=== PATIENT | male | born 1945 | race Caucasian/White ===

== ENCOUNTER 2017-02-15 09:48 | Inpatient (IN) | payer OTHER ==
--- NOTE | 2017-02-12 10:41 | Diagnostic Imaging Report ---
PROCEDURE:CHEST 2 VIEWS TECHNIQUE:PA and lateral chest tunneling 3 radiographs INDICATION:Preoperative evaluation for stomach surgery. COMPARISON:None. FINDINGS: Lungs are clear and symmetrically inflated. No pleural effusions. Normal heart size and mediastinal contour. Intact skeleton. CONCLUSION: Normal chest for patient age. Dictated by: Izaiah Amador M.D. on 02/12/2017 at 10:49 Electronically approved by: Izaiah Amador M.D. on 02/12/2017 at 10:49
[2017-02-12 10:43] LABS: BASOPHILS # (AUTO) 0.1 (0.0-0.1); BASOPHILS % 0.9 % (0.0-1.0); EOSINOPHILS # (AUTO) 0.3 (0.0-0.4); EOSINOPHILS % 3.9 % (0.0-6.0); HEMATOCRIT 43.5 % (38.2-49.6); HEMOGLOBIN 14.3 g/dL (14.0-18.0); LYMPHOCYTES # (AUTO) 2.3 (1.0-3.2); LYMPHOCYTES % 28.1 % (18.0-39.1); MEAN CORPUSCULAR HEMOGLOBIN 32.4 pg (28-32); MEAN CORPUSCULAR HGB CONC 32.9 g/dL (31-35); MEAN CORPUSCULAR VOLUME 98.4 fL (81-99); MONOCYTES # (AUTO) 0.8 (0.2-0.8); MONOCYTES % 9.7 % (4.4-11.3); NEUTROPHILS # (AUTO) 4.6 (2.1-6.9); NEUTROPHILS % 57.2 % (38.7-80.0); PLATELET COUNT 191 x10e3/uL (140-360); RED BLOOD COUNT 4.42 x10e6/uL (4.3-5.7); RED CELL DISTRIBUTION WIDTH 14.1 % (11.7-14.4)
[2017-02-12 11:01] LABS: ANION GAP 13.9 mmol/L (8-16); BLOOD UREA NITROGEN 16 mg/dL (7-26); BUN/CREATININE RATIO 15 (6-25); CALCIUM 9.2 mg/dL (8.4-10.2); CARBON DIOXIDE 25 mmol/L (22-29); CHLORIDE 107 mmol/L (98-107); EST GLOMERULAR FILTRATION RATE > 60 ML/MIN (60-); GLUCOSE 89 mg/dL (74-118); POTASSIUM 4.9 mmol/L (3.5-5.1); SODIUM 141 mmol/L (136-145)
[~2017-02-15] VITALS: Ht 177.8 cm; Wt 77.1 kg
[~2017-02-15 09:48] MED LIST: AMLODIPINE BESYL5 MG PO; ASPIR 8181 MG PO; BACLOFEN10 MG PO; CARVEDILOL3.125 MG PO; LOSARTAN POTASS25 MG PO; MELOXICAM7.5 MG PO; OXYBUTYNIN CHLOR5 MG PO; PANTOPRAZOLE SO20 MG PO; TAMSULOSIN HCL0.4 MG PO; TRIAMTERENE-HCTZ1 EA PO; VITAMIN B-121000 MCG PO; VITAMIN D32000 UNI1 PO
[2017-02-15] MEDS ORDERED: CEFAZOLIN SOD 1 GM/NS 50ML 100 ML IV ONE (10:09)
[2017-02-15] MEDS ORDERED: AMITIZA24 MCG PO (10:17)
[2017-02-15] MEDS ORDERED: TYLENOL ARTHRITIS PO (10:17)
[2017-02-15] MEDS ORDERED: BUPIVACAINE HCL 0.5% INJ 30 ML VIAL INJ ONE (12:27)
[2017-02-15] MEDS ORDERED: TYLENOL ARTHRITIS PO PRN (13:45)
[2017-02-15] MEDS ORDERED: DIPHENHYDRAMINE HCL INJ 50 MG/ML VIAL IM PRN (13:45)
[2017-02-15] MEDS ORDERED: LUBIPROSTONE 24 MCG CAP PO SCH (13:45)
[2017-02-15] MEDS ORDERED: ACETAMINOPHEN 1000 MG/100 ML IV PRN (13:45)
[2017-02-15] MEDS ORDERED: NALOXONE HCL INJ 0.4 MG/ML AMP IV PRN (13:45)
[2017-02-15] MEDS ORDERED: ONDANSETRON HCL INJ 2 MG/ML VIAL IV PRN (13:45)
[2017-02-15] MEDS: HYDROMORPHONE 0.2MG/ML-SOD CHL 30ML PCA SYRINGE IV PRN (14:10)
[2017-02-15] MEDS ORDERED: HYDROMORPHONE 1MG/1ML INJ ONE (14:18)
[2017-02-15] MEDS ORDERED: HYDRALAZINE HCL 20 MG/ML VIAL ONE (14:27)
[2017-02-15] MEDS ORDERED: ACETAMINOPHEN 325 MG TAB PO PRN (14:30)
[2017-02-15] MEDS: OXYBUTYNIN CHLORIDE 5 MG TAB PO SCH ×2 (15:00→21:55)
[2017-02-15 16:25] VITALS: BP 179/110
--- NOTE | 2017-02-15 16:54 | Operative Report ---
DATE OF PROCEDURE: February 15, 2017 PREOPERATIVE DIAGNOSIS: Gastric mass. POSTOPERATIVE DIAGNOSIS: Gastric mass. PROCEDURE: Laparoscopic assisted wedge resection of gastric mass. COMMERCIAL INSULATOR: None. ANESTHESIA: General. INDICATIONS AND FINDINGS: Patient is a 71-year-old male who was found to have a mass in the stomach that had increased in size. At surgery patient was found to have a mass in the body of the stomach posteriorly, which was completely removed and frozen section revealed a benign tumor which had been completely excised. TECHNIQUE: After adequate general endotracheal anesthesia, patient in supine position, the abdomen was prepped and draped in sterile fashion with Kali solution. Skin of the umbilicus was infiltrated with 0.5% Marcaine. Incision was made in the umbilicus. Abdominal wall was elevated and a Veress needle was introduced. Pneumoperitoneum was then created. A 10 mm trocar and cannula was passed through this wound. Laparoscopic camera was introduced. Initial laparoscopy revealed the liver to be normal. The stomach that was seen appeared normal. Lower abdomen appeared normal. Two 5 mm trocars and cannulas were placed in the left side of the abdomen. Stomach was elevated. The vessels going along the greater curvature of the stomach to the body of the stomach were divided with the laparoscopic Enseal device to enter the lesser sac, and some of the vessels along the lesser curvature also were divided close to the stomach, preserving the vagal nerve innervation to the distal stomach. Once the mobilization had been completed, which mostly involved dividing vessels along the greater curvature, upper midline incision was made. Palpation of the stomach revealed a mass posteriorly in the body of the stomach. This portion of the stomach was elevated, grasped with a Myke clamp, and a stapler placed across the stomach, dividing it transversely and removing the segment of stomach with the mass. The mass was submitted for frozen section, which revealed a benign tumor which was completely removed. Palpation of the stomach revealed no other mass. Hemostasis of the staple line was seen to be adequate. The wound was irrigated with saline, inspected for hemostasis, which was seen to be adequate. The midline fascia was then closed with a running suture of number 1 PDS. Subcutaneous tissue was irrigated with saline. Skin to all wounds was closed with alex. A sterile dressing was applied. The patient tolerated the procedure well. Estimated blood loss was 50 mL. There were no complications. All counts were correct. Patient was taken to the recovery room in satisfactory condition. Job#: [id number] EV cc:KECIA MONGE MD
[2017-02-15 17:14] VITALS: BP 136/72
[2017-02-15] MEDS: DEXTROSE 5%/LACTATED RINGERS 1,000 ML IV SCH ×2 (17:37→21:44)
[2017-02-15] MEDS: CEFAZOLIN SOD 1 GM/NS 50ML 50 ML IV SCH (17:38)
[2017-02-15] MEDS ORDERED: DEXAMETHASONE SOD PHOS INJ 4 MG/ML VIAL ONE (18:10)
[2017-02-15] MEDS ORDERED: ACETAMINOPHEN 1000 MG/100 ML IV ONE (18:10)
[2017-02-15] MEDS ORDERED: SEVOFLURANE INHAL SOLN 250 ML PEN BTL ONE (18:10)
[2017-02-15] MEDS ORDERED: ROCURONIUM BROMIDE 10 MG/ML 5ML VIAL ONE (18:10)
[2017-02-15] MEDS ORDERED: ONDANSETRON HCL INJ 2 MG/ML VIAL ONE (18:10)
[2017-02-15] MEDS ORDERED: PROPOFOL IV EMULSION 10 MG/ML 20 ML VIAL ONE (18:10)
[2017-02-15] MEDS ORDERED: LIDOCAINE HCL 2% LOCAL INJ 5 ML SDV VIAL INJ ONE (18:10)
[2017-02-15] MEDS ORDERED: FENTANYL CITRATE/PF 100MCG/2 ML INJ ONE (18:15)
[2017-02-15] MEDS ORDERED: MIDAZOLAM HCL 2 MG/2 ML VIAL ONE (18:15)
[2017-02-15 20:00] VITALS: BP 143/80
[2017-02-15] MEDS: TAMSULOSIN HCL 0.4 MG CAP PO SCH (21:55)
[2017-02-16] VITALS: BP 128/73
[2017-02-16] MEDS: CEFAZOLIN SOD 1 GM/NS 50ML 50 ML IV SCH (00:06)
[2017-02-16] MEDS: DEXTROSE 5%/LACTATED RINGERS 1,000 ML IV SCH ×3 (02:26→23:03)
[2017-02-16] MEDS: HYDROMORPHONE 0.2MG/ML-SOD CHL 30ML PCA SYRINGE IV PRN (03:09)
[2017-02-16 04:00] VITALS: BP 132/75
[2017-02-16 06:21] LABS: BASOPHILS % 0.2 % (0.0-1.0); HEMATOCRIT 41.6 % (38.2-49.6); HEMOGLOBIN 14.1 g/dL (14.0-18.0); LYMPHOCYTES # (AUTO) 1.2 (1.0-3.2); LYMPHOCYTES % 10.3 % (18.0-39.1); MEAN CORPUSCULAR HEMOGLOBIN 32.7 pg (28-32); MEAN CORPUSCULAR HGB CONC 33.9 g/dL (31-35); MEAN CORPUSCULAR VOLUME 96.5 fL (81-99); MONOCYTES % 8.8 % (4.4-11.3); NEUTROPHILS # (AUTO) 9.5 (2.1-6.9); NEUTROPHILS % 80.3 % (38.7-80.0); PLATELET COUNT 211 x10e3/uL (140-360); RED BLOOD COUNT 4.31 x10e6/uL (4.3-5.7); RED CELL DISTRIBUTION WIDTH 13.8 % (11.7-14.4)
[2017-02-16 06:41] LABS: ANION GAP 16.3 mmol/L (8-16); BLOOD UREA NITROGEN 15 mg/dL (7-26); BUN/CREATININE RATIO 14 (6-25); CALCIUM 8.7 mg/dL (8.4-10.2); CARBON DIOXIDE 23 mmol/L (22-29); CHLORIDE 107 mmol/L (98-107); CREATININE, SERUM 1.07 mg/dL (0.72-1.25); EST GLOMERULAR FILTRATION RATE > 60 ML/MIN (60-); GLUCOSE 148 mg/dL (74-118); POTASSIUM 4.3 mmol/L (3.5-5.1); SODIUM 142 mmol/L (136-145)
[2017-02-16 07:55] VITALS: BP 174/79
[2017-02-16] MEDS: CYANOCOBALAMIN 1,000 MCG TAB PO SCH (08:39)
[2017-02-16] MEDS: CHOLECALCIFEROL 1,000 UNIT TAB PO SCH (08:39)
[2017-02-16] MEDS: OXYBUTYNIN CHLORIDE 5 MG TAB PO SCH ×3 (08:39→20:46)
[2017-02-16] MEDS: PANTOPRAZOLE SOD 40 MG TABEC PO SCH (08:39)
[2017-02-16] MEDS ORDERED: NON-FORMULARY MEDICATION (Cholecalciferol (Vitamin D3) (Vitamin D3) 1 TAB) PO SCH (09:00)
[2017-02-16] MEDS ORDERED: NON-FORMULARY MEDICATION (Pantoprazole Sodium 40 MG) PO SCH (09:00)
[2017-02-16 12:17] VITALS: BP 175/90
[2017-02-16 16:45] VITALS: BP 179/87
[2017-02-16 20:00] VITALS: BP 171/87
[2017-02-16] MEDS: TAMSULOSIN HCL 0.4 MG CAP PO SCH (20:46)
[2017-02-17 00:24] VITALS: BP 137/72
[2017-02-17] MEDS: HYDROMORPHONE 0.2MG/ML-SOD CHL 30ML PCA SYRINGE IV PRN (02:10)
[2017-02-17 04:00] VITALS: BP 183/85
[2017-02-17 05:59] VITALS: BP 147/77
[2017-02-17] MEDS: PANTOPRAZOLE SOD 40 MG TABEC PO SCH (08:22)
[2017-02-17] MEDS: CYANOCOBALAMIN 1,000 MCG TAB PO SCH (08:23)
[2017-02-17] MEDS: OXYBUTYNIN CHLORIDE 5 MG TAB PO SCH (08:23)
[2017-02-17] MEDS: CHOLECALCIFEROL 1,000 UNIT TAB PO SCH (08:23)
[2017-02-17 12:07] VITALS: BP 148/71
[2017-02-17] MEDS ORDERED: NORCO 5-325 TA1 EACH PO (13:31)
[2017-04-10] MEDS ORDERED: FERROUS SULFAT325 MG PO (09:20)
[2017-04-10] MEDS ORDERED: VITAMIN C500 M1 PO (09:20)
== END 2017-02-17 14:09 | disposition home or self-care (01) | DRG 376 ==
LOC: OR 09:48 → MED/SURG 15:12 → RAD HOLD 02-16 10:57 → MED/SURG 02-16 10:57
PROVIDERS: ADMIT Surgery; ATTEND Surgery
PROC: 0DB64ZZ Excision of Stomach, Percutaneous Endoscopic Approach (ICD-10-PCS; principal; 2017-02-15 12:00)
DX: C16.2 Malignant neoplasm of body of stomach (principal)
CPT/HCPCS: 36415; 71020; 80048; 85025; 86850; 86900; 88307; 88331; 93005; J0360; J1100; J1170; J2001; J2250; J2405; J7120

== ENCOUNTER 2017-04-11 05:10 | Inpatient (IN) | payer OTHER ==
[2017-04-09 14:28] LABS: BASOPHILS # (AUTO) 0.1 (0.0-0.1); BASOPHILS % 0.8 % (0.0-1.0); EOSINOPHILS # (AUTO) 0.2 (0.0-0.4); EOSINOPHILS % 2.5 % (0.0-6.0); LYMPHOCYTES # (AUTO) 2.4 (1.0-3.2); LYMPHOCYTES % 30.5 % (18.0-39.1); MEAN CORPUSCULAR HEMOGLOBIN 31.7 pg (28-32); MONOCYTES # (AUTO) 0.8 (0.2-0.8); MONOCYTES % 10.3 % (4.4-11.3); NEUTROPHILS # (AUTO) 4.3 (2.1-6.9); NEUTROPHILS % 55.6 % (38.7-80.0); PLATELET COUNT 162 x10e3/uL (140-360); RED BLOOD COUNT 5.05 x10e6/uL (4.3-5.7); RED CELL DISTRIBUTION WIDTH 13.2 % (11.7-14.4)
[2017-04-09 15:01] LABS: ALANINE AMINOTRANSFERASE 10 IU/L (0-55); ALBUMIN 3.9 g/dL (3.5-5.0); ALKALINE PHOSPHATASE 104 IU/L (40-150); ANION GAP 15.5 mmol/L (8-16); BLOOD UREA NITROGEN 18 mg/dL (7-26); BUN/CREATININE RATIO 18 (6-25); CALCIUM 9.7 mg/dL (8.4-10.2); CARBON DIOXIDE 25 mmol/L (22-29); CHLORIDE 106 mmol/L (98-107); EST GLOMERULAR FILTRATION RATE > 60 ML/MIN (60-); GLUCOSE 97 mg/dL (74-118); POTASSIUM 4.5 mmol/L (3.5-5.1); SODIUM 142 mmol/L (136-145)
[~2017-04-11] VITALS: Ht 177.8 cm; Wt 80.3 kg
[~2017-04-11 05:10] MED LIST changes: +AMITIZA24 MCG PO; +FERROUS SULFAT325 MG PO; +NORCO 5-325 TA1 EACH PO; +TYLENOL ARTHRITIS PO; +VITAMIN C500 M1 PO
[2017-04-11] MEDS ORDERED: CEFAZOLIN SOD 2 GM/D5W 50ML 50 ML IV ONE (05:27)
[2017-04-11] MEDS: DEXTROSE 5%/LACTATED RINGERS 1,000 ML IV SCH ×2 (08:16→16:31)
[2017-04-11] MEDS: SODIUM CHLORIDE 0.9% 250ML IRRIG IR SCH ×4 (08:30→20:39)
[2017-04-11] MEDS ORDERED: DIPHENHYDRAMINE HCL INJ 50 MG/ML VIAL IM PRN (08:30)
[2017-04-11] MEDS ORDERED: ACETAMINOPHEN 1000 MG/100 ML IV PRN (08:30)
[2017-04-11] MEDS ORDERED: ONDANSETRON HCL INJ 2 MG/ML VIAL IV PRN (08:30)
[2017-04-11] MEDS: MORPHINE SULFATE 1 MG/ML 30ML PCA IV PRN (08:30)
[2017-04-11] MEDS ORDERED: NALOXONE HCL INJ 0.4 MG/ML AMP IV PRN (08:30)
[2017-04-11] MEDS ORDERED: HYDROMORPHONE 2MG/ML INJ ONE (08:48)
--- NOTE | 2017-04-11 09:14 | Operative Report ---
DATE OF PROCEDURE: April 11, 2017 PREOPERATIVE DIAGNOSIS: Carcinoma of the stomach. POSTOPERATIVE DIAGNOSIS: Carcinoma of the stomach. PROCEDURE PERFORMED: Subtotal gastrectomy and omentectomy with Brayan-en-Y gastrojejunostomy. HOT AIR FURNACE INSTALLER REPAIRER: None. ANESTHESIA: General. INDICATIONS AND FINDINGS: Patient a 71-year-old male previously had resection of a polyp from the stomach. He was found to have invasive adenocarcinoma within it with a margin that was not definitely free of tumor. At surgery, there was a previous staple line that was seen to be intact. There was no mass in the liver. There were no obvious enlarged lymph nodes. There was no fluid seen. TECHNIQUE: After adequate general endotracheal anesthesia with the patient in the supine position, the abdomen was prepped and draped in a sterile fashion with [place] solution. Through an upper midline incision, the peritoneal cavity was entered. There were some adhesions of the abdominal wall involving the omentum, which were lysed. Initially, the peritoneal cavity was irrigated with saline, and then fluid collected for cytology for peritoneal washings. This was submitted to pathology. Remaining adhesions were lysed. The omentum was dissected away from the transverse colon. There were some adhesions within the lesser sac behind the stomach, and these were lysed. The area of the previous wedge resection of the stomach was identified. The stomach was mobilized by dividing the peritoneal attachments. The colon was dissected away from the stomach. Care was taken not to injure the transverse colon. Vessels going along the greater curvature of the stomach to about 5 cm proximal to the previous resection were divided with LigaSure device. The distal stomach was also mobilized by dividing attachments to the distal stomach and vessels going to the distal stomach all the way to beyond the pylorus. The proximal duodenum was dissected free and this was divided just beyond the pylorus with a CRISTIANO stapler. Vessels along the lesser curvature were divided with the LigaSure device until approximately 60% of the remaining stomach was removed. The proximal stomach was then stapled with a TA-90 stapling device and the stomach was divided. This portion of the stomach was removed. Portion of the omentum was dissected also off the transverse colon and divided with the LigaSure devices, and this also was removed. There were no obvious enlarged lymph nodes. No tumor was seen. Patient was left with about 30% of this stomach. This was reconstructed with a Brayan-en-Y gastrojejunostomy. Approximately, 15 cm distal to the ligament of Treitz, the stomach divided with a CRISTIANO stapler. Mesentery divided with the LigaSure device. About 30 cm distal to the ligament of Treitz, the small bowel was divided with CRISTIANO stapler. Mesentery divided part of the way with the LigaSure device. Care was taken that blood supply to both portions of the small bowel was preserved. The distal portion of the small bowel where it was divided was brought up to the stomach, and a gastrojejunostomy created with the CRISTIANO stapler and TL-60 stapler. Nasogastric tube was passed through the anastomosis into the Brayan-en-Y limb. Approximately, 45 cm distal to the gastrojejunostomy, a jejunojejunostomy was created with a CRISTIANO stapler and TL-60 stapler. The peritoneal cavity was irrigated with saline. One area was bleeding and was controlled with the LigaSure device. It was irrigated further with saline. All fluid aspirated and inspected for hemostasis, which was seen to be adequate. The gastrojejunostomy was created in an anti-colic fashion. The wound was then closed with #1 PDS to the fascia. Subcutaneous tissue was irrigated with saline. Skin was closed with alex. Sterile dressing was applied. The patient tolerated the procedure well. Estimated blood loss was 200 mL. There were no complications. All counts were correct. Patient was taken to the recovery room in satisfactory condition. Job#: [id number] XOCHITL
[2017-04-11] MEDS ORDERED: MIDAZOLAM HCL 2 MG/2 ML VIAL ONE (11:46)
[2017-04-11] MEDS ORDERED: FENTANYL CITRATE/PF 100MCG/2 ML INJ ONE (11:46)
[2017-04-11 12:30] VITALS: BP 120/83
[2017-04-11 13:00] VITALS: BP 120/83
[2017-04-11] MEDS ORDERED: CEFAZOLIN SOD 1 GM in WATER STERILE 10ML VIAL 10 ML IV SCH (14:00)
[2017-04-11] MEDS ORDERED: CEFAZOLIN SOD 1 GM/NS 50ML 250 ML IV SCH (14:00)
[2017-04-11] MEDS ORDERED: CEFAZOLIN SOD 1 GM/NS 50ML 50 ML IV SCH (14:00)
[2017-04-11] MEDS: PANTOPRAZOLE 40 MG 10ML VIAL IV SCH (14:46)
[2017-04-11] MEDS: CEFAZOLIN SOD 1 GM VIAL IV SCH ×2 (15:30→22:08)
[2017-04-11] MEDS ORDERED: NEOSTIGMINE 5 MG/5ML SYR ONE (19:36)
[2017-04-11] MEDS ORDERED: ACETAMINOPHEN 1000 MG/100 ML IV ONE (19:36)
[2017-04-11] MEDS ORDERED: ONDANSETRON HCL INJ 2 MG/ML VIAL ONE (19:36)
[2017-04-11] MEDS ORDERED: GLYCOPYRROLATE INJ 1MG/ 5 ML SYR ONE (19:36)
[2017-04-11] MEDS ORDERED: SEVOFLURANE INHAL SOLN 250 ML PEN BTL ONE (19:36)
[2017-04-11] MEDS ORDERED: PROPOFOL IV EMULSION 10 MG/ML 20 ML VIAL ONE (19:36)
[2017-04-11] MEDS ORDERED: ROCURONIUM BROMIDE 10 MG/ML 5ML VIAL ONE (19:36)
[2017-04-11] MEDS ORDERED: DEXAMETHASONE SOD PHOS INJ 4 MG/ML VIAL ONE (19:36)
[2017-04-11] MEDS ORDERED: LIDOCAINE HCL 2% LOCAL INJ 5 ML SDV VIAL INJ ONE (19:36)
[2017-04-11 20:00] VITALS: BP 141/79
[2017-04-11 20:04] VITALS: BP 135/95
[2017-04-12] MEDS: DEXTROSE 5%/LACTATED RINGERS 1,000 ML IV SCH ×3 (00:21→16:13)
[2017-04-12] MEDS: SODIUM CHLORIDE 0.9% 250ML IRRIG IR SCH ×4 (00:45→12:30)
[2017-04-12] MEDS: MORPHINE SULFATE 1 MG/ML 30ML PCA IV PRN (03:34)
[2017-04-12 04:00] VITALS: BP 143/78
[2017-04-12] MEDS: CEFAZOLIN SOD 1 GM VIAL IV SCH ×3 (05:51→22:00)
[2017-04-12 06:53] LABS: BASOPHILS % 0.2 % (0.0-1.0); HEMATOCRIT 36.3 % (38.2-49.6); HEMOGLOBIN 12.3 g/dL (14.0-18.0); LYMPHOCYTES # (AUTO) 1.2 (1.0-3.2); LYMPHOCYTES % 9.3 % (18.0-39.1); MEAN CORPUSCULAR HEMOGLOBIN 31.9 pg (28-32); MEAN CORPUSCULAR HGB CONC 33.9 g/dL (31-35); MONOCYTES # (AUTO) 1.3 (0.2-0.8); MONOCYTES % 9.9 % (4.4-11.3); NEUTROPHILS # (AUTO) 10.6 (2.1-6.9); NEUTROPHILS % 80.1 % (38.7-80.0); PLATELET COUNT 177 x10e3/uL (140-360); RED BLOOD COUNT 3.86 x10e6/uL (4.3-5.7); RED CELL DISTRIBUTION WIDTH 13.3 % (11.7-14.4)
[2017-04-12 07:23] LABS: ALANINE AMINOTRANSFERASE 10 IU/L (0-55); ALBUMIN 2.7 g/dL (3.5-5.0); ALBUMIN/GLOBULIN RATIO 0.8 (0.8-2.0); ALKALINE PHOSPHATASE 66 IU/L (40-150); ANION GAP 12.1 mmol/L (8-16); BLOOD UREA NITROGEN 14 mg/dL (7-26); BUN/CREATININE RATIO 15 (6-25); CALCIUM 8.3 mg/dL (8.4-10.2); CARBON DIOXIDE 26 mmol/L (22-29); CHLORIDE 105 mmol/L (98-107); CREATININE, SERUM 0.92 mg/dL (0.72-1.25); EST GLOMERULAR FILTRATION RATE > 60 ML/MIN (60-); GLUCOSE 155 mg/dL (74-118); POTASSIUM 4.1 mmol/L (3.5-5.1); SODIUM 139 mmol/L (136-145)
[2017-04-12] MEDS: PANTOPRAZOLE 40 MG 10ML VIAL IV SCH (09:13)
[2017-04-12] MEDS ORDERED: ACETAMINOPHEN 1000 MG/100 ML IV PRN (09:30)
--- NOTE | 2017-04-12 15:16 | Consultation ---
DATE OF CONSULTATION: April 12, 2017 PCP: Dr. Richie Storey. ATTENDING PHYSICIAN: Dr. Richie Lara. CHIEF COMPLAINT: Status post subtotal gastrectomy or omentectomy with Brayan-en-Y gastrojejunostomy. HISTORY: The patient is a 71-year-old male with previous resection of polyps from the stomach. He was found have invasive adenocarcinoma with a margin that was not free of tumor. The patient is now status post a total gastrectomy and omentectomy with Brayan-en-Y gastrojejunostomy. The patient is otherwise stable. PAST MEDICAL HISTORY: Carcinoma of the stomach, hypertension, osteoarthritis, overactive urinary bladder. PAST SURGICAL HISTORY: Appendectomy. Status post now Brayan-en-Y procedure with a jejunostomy. SOCIAL HISTORY: Patient quit smoking years ago. He does not use alcohol. No recreational drugs. ALLERGIES: NO KNOWN ALLERGIES. HOME MEDICATIONS: List reviewed. REVIEW OF SYSTEMS: As mentioned above. PHYSICAL EXAMINATION VITAL SIGNS: Temperature 98, blood pressure 143/78, pulse rate 86, respirations 18. GENERAL: The patient is in no acute distress. He is awake. HEENT: Normocephalic, atraumatic, anicteric. NECK: Supple grossly. PULMONARY: Clear. CARDIOVASCULAR: Regular rate and rhythm. ABDOMEN: Status post surgery. EXTREMITIES: No cyanosis or edema. NEUROLOGIC: No focal deficit. LABORATORY: Sodium is 139, potassium 4.1, chloride 105, bicarb 26, BUN 14, creatinine 0.9. Glucose 155. WBC 13.2, hemoglobin 12.3, hematocrit 36.3, platelets 177. IMPRESSION 1. Status post subtotal gastrectomy and omentectomy with Brayan-en-Y gastrojejunostomy. 2. Hypertension. PLAN: Continue with postoperative care. Repeat lab work. PPI. Will monitor the patient closely. Pain control. Job#: [id number]
[2017-04-12 20:10] VITALS: BP 130/77
[2017-04-12] MEDS ORDERED: CHLORASEPTIC SPRAY 177 ML BTL MM PRN (20:15)
[2017-04-13 00:35] VITALS: BP 151/74
[2017-04-13] MEDS: MORPHINE SULFATE 1 MG/ML 30ML PCA IV PRN (02:43)
[2017-04-13 04:36] VITALS: BP 165/86
[2017-04-13] MEDS: CEFAZOLIN SOD 1 GM VIAL IV SCH ×3 (05:45→21:49)
[2017-04-13] MEDS: DEXTROSE 5%/LACTATED RINGERS 1,000 ML IV SCH ×2 (05:50→23:34)
[2017-04-13 06:23] LABS: BASOPHILS # (AUTO) 0.1 (0.0-0.1); BASOPHILS % 0.4 % (0.0-1.0); EOSINOPHILS # (AUTO) 0.1 (0.0-0.4); EOSINOPHILS % 0.7 % (0.0-6.0); HEMATOCRIT 38.7 % (38.2-49.6); HEMOGLOBIN 12.8 g/dL (14.0-18.0); LYMPHOCYTES # (AUTO) 1.6 (1.0-3.2); LYMPHOCYTES % 9.9 % (18.0-39.1); MEAN CORPUSCULAR HEMOGLOBIN 31.5 pg (28-32); MEAN CORPUSCULAR HGB CONC 33.1 g/dL (31-35); MEAN CORPUSCULAR VOLUME 95.3 fL (81-99); MONOCYTES # (AUTO) 1.6 (0.2-0.8); MONOCYTES % 9.9 % (4.4-11.3); NEUTROPHILS # (AUTO) 12.7 (2.1-6.9); NEUTROPHILS % 78.6 % (38.7-80.0); PLATELET COUNT 205 x10e3/uL (140-360); RED BLOOD COUNT 4.06 x10e6/uL (4.3-5.7); RED CELL DISTRIBUTION WIDTH 13.2 % (11.7-14.4)
[2017-04-13 06:52] LABS: ANION GAP 13.2 mmol/L (8-16); BLOOD UREA NITROGEN 11 mg/dL (7-26); BUN/CREATININE RATIO 11 (6-25); CARBON DIOXIDE 29 mmol/L (22-29); CHLORIDE 102 mmol/L (98-107); CREATININE, SERUM 0.97 mg/dL (0.72-1.25); EST GLOMERULAR FILTRATION RATE > 60 ML/MIN (60-); GLUCOSE 140 mg/dL (74-118); POTASSIUM 4.2 mmol/L (3.5-5.1); SODIUM 140 mmol/L (136-145)
[2017-04-13 07:39] VITALS: BP 128/82
--- NOTE | 2017-04-13 08:27 | Diagnostic Imaging Report ---
PROCEDURE:ABDOMEN COMP INCL UPR OR DECUB TECHNIQUE:Flat and erect abdomen. INDICATION:Abdominal distention COMPARISON:None. FINDINGS:There are midline surgical alex. Mildly dilated loops of bowel are present. There are scattered air fluid levels identified. Gas and fecal material within the colon is present. There is also gas in the rectum. Findings are most compatible with an ileus. No free peritoneal air. CONCLUSION:Findings suggestive of a postoperative ileus. Jimmie Taylor D.O. Dictated by: Jimmie Taylor D.O. on 04/13/2017 at 8:35 Electronically approved by: Jimmie Taylor D.O. on 04/13/2017 at 8:35
[2017-04-13 08:28] LABS: LYMPHOCYTES % (MANUAL) 19 % (19-48); METAMYELOCYTES % (MANUAL) 2 % (0-0); MONOCYTES % (MANUAL) 3 % (3.4-9.0); NEUTROPHILS % (MANUAL) 75 % (40-74); RBC MORPHOLOGY COMMENT NORMAL
[2017-04-13 08:29] LABS: PLATELET ESTIMATE ADEQUATE; PLATELET MORPHOLOGY COMMENT NORMAL
[2017-04-13] MEDS: PANTOPRAZOLE 40 MG 10ML VIAL IV SCH (08:38)
[2017-04-13 11:39] VITALS: BP 129/82
[2017-04-13] MEDS ORDERED: MORPHINE SULFATE 5 MG/ML VIAL IV PRN (12:30)
[2017-04-13] MEDS ORDERED: MORPHINE SULFATE 4 MG/ML SYR IV PRN (12:30)
[2017-04-13 15:51] VITALS: BP 136/78
[2017-04-13 19:30] VITALS: BP 126/86
[2017-04-14 00:18] VITALS: BP 133/81
[2017-04-14 04:00] VITALS: BP 128/75
[2017-04-14] MEDS: CEFAZOLIN SOD 1 GM VIAL IV SCH ×3 (05:30→22:37)
[2017-04-14 06:06] LABS: BASOPHILS % 0.3 % (0.0-1.0); EOSINOPHILS # (AUTO) 0.2 (0.0-0.4); EOSINOPHILS % 1.9 % (0.0-6.0); HEMATOCRIT 33.4 % (38.2-49.6); HEMOGLOBIN 11.2 g/dL (14.0-18.0); LYMPHOCYTES # (AUTO) 1.6 (1.0-3.2); LYMPHOCYTES % 12.7 % (18.0-39.1); MEAN CORPUSCULAR HEMOGLOBIN 31.8 pg (28-32); MEAN CORPUSCULAR HGB CONC 33.5 g/dL (31-35); MEAN CORPUSCULAR VOLUME 94.9 fL (81-99); MONOCYTES # (AUTO) 1.3 (0.2-0.8); MONOCYTES % 10.3 % (4.4-11.3); NEUTROPHILS # (AUTO) 9.3 (2.1-6.9); NEUTROPHILS % 74.2 % (38.7-80.0); PLATELET COUNT 162 x10e3/uL (140-360); RED BLOOD COUNT 3.52 x10e6/uL (4.3-5.7); RED CELL DISTRIBUTION WIDTH 13.1 % (11.7-14.4)
[2017-04-14 06:28] LABS: ANION GAP 11.7 mmol/L (8-16); BLOOD UREA NITROGEN 13 mg/dL (7-26); BUN/CREATININE RATIO 15 (6-25); CALCIUM 8.3 mg/dL (8.4-10.2); CARBON DIOXIDE 26 mmol/L (22-29); CHLORIDE 106 mmol/L (98-107); CREATININE, SERUM 0.84 mg/dL (0.72-1.25); EST GLOMERULAR FILTRATION RATE > 60 ML/MIN (60-); GLUCOSE 130 mg/dL (74-118); POTASSIUM 3.7 mmol/L (3.5-5.1); SODIUM 140 mmol/L (136-145)
[2017-04-14] MEDS: DEXTROSE 5%/LACTATED RINGERS 1,000 ML IV SCH ×2 (06:59→12:59)
[2017-04-14 08:01] VITALS: BP 124/71
[2017-04-14] MEDS: PANTOPRAZOLE 40 MG 10ML VIAL IV SCH (08:04)
[2017-04-14 12:01] VITALS: BP 154/84
[2017-04-14 16:20] VITALS: BP 168/89
[2017-04-14 20:18] VITALS: BP 163/88
[2017-04-15 00:15] VITALS: BP 169/98
[2017-04-15] MEDS: DEXTROSE 5%/LACTATED RINGERS 1,000 ML IV SCH ×2 (02:14→15:08)
[2017-04-15 04:21] VITALS: BP 144/84
[2017-04-15] MEDS: CEFAZOLIN SOD 1 GM VIAL IV SCH ×3 (05:30→22:20)
[2017-04-15 07:45] VITALS: BP 141/87
[2017-04-15] MEDS: PANTOPRAZOLE 40 MG 10ML VIAL IV SCH (09:45)
[2017-04-15 11:39] VITALS: BP 148/77
[2017-04-15 19:30] VITALS: BP 148/93
[2017-04-15] MEDS ORDERED: TAMSULOSIN HCL 0.4 MG CAP PO SCH (21:00)
[2017-04-16] VITALS: BP 149/87
[2017-04-16] MEDS: CEFAZOLIN SOD 1 GM VIAL IV SCH (06:11)
[2017-04-16 06:39] LABS: BASOPHILS % 0.5 % (0.0-1.0); EOSINOPHILS # (AUTO) 0.5 (0.0-0.4); EOSINOPHILS % 5.7 % (0.0-6.0); HEMATOCRIT 31.8 % (38.2-49.6); HEMOGLOBIN 10.8 g/dL (14.0-18.0); LYMPHOCYTES # (AUTO) 1.5 (1.0-3.2); LYMPHOCYTES % 17.8 % (18.0-39.1); MEAN CORPUSCULAR HEMOGLOBIN 31.4 pg (28-32); MEAN CORPUSCULAR VOLUME 92.4 fL (81-99); MONOCYTES # (AUTO) 0.9 (0.2-0.8); MONOCYTES % 11.3 % (4.4-11.3); NEUTROPHILS # (AUTO) 5.3 (2.1-6.9); NEUTROPHILS % 64.2 % (38.7-80.0); PLATELET COUNT 207 x10e3/uL (140-360); RED BLOOD COUNT 3.44 x10e6/uL (4.3-5.7); RED CELL DISTRIBUTION WIDTH 12.9 % (11.7-14.4)
[2017-04-16 07:00] VITALS: BP 152/91
[2017-04-16 07:06] LABS: ANION GAP 13.5 mmol/L (8-16); BLOOD UREA NITROGEN 11 mg/dL (7-26); BUN/CREATININE RATIO 14 (6-25); CALCIUM 8.4 mg/dL (8.4-10.2); CARBON DIOXIDE 24 mmol/L (22-29); CHLORIDE 108 mmol/L (98-107); EST GLOMERULAR FILTRATION RATE > 60 ML/MIN (60-); GLUCOSE 95 mg/dL (74-118); POTASSIUM 3.5 mmol/L (3.5-5.1); SODIUM 142 mmol/L (136-145)
[2017-04-16] MEDS ORDERED: PANTOPRAZOLE SOD 40 MG TABEC PO SCH (07:30)
--- NOTE | 2017-04-16 07:54 | Discharge Summary ---
ADMISSION DIAGNOSIS: Carcinoma of the stomach. DISCHARGE DIAGNOSIS: Carcinoma of the stomach. PRINCIPAL PROCEDURE: Subtotal gastrectomy with Brayan-en-Y gastrojejunostomy. HISTORY OF PRESENT ILLNESS: Patient is a 71-year-old male who previously had resection of the polyp from the stomach, was found to have invasive adenocarcinoma within it with a positive margin. HOSPITAL COURSE: Patient was admitted to the hospital and underwent surgery the same day as admission. He had subtotal gastrectomy and omentectomy with Brayan-en-Y gastrojejunostomy. Postoperatively, patient was stable. He has some mild distention, was kept n.p.o. until bowel function improved. He started passing flatus, distention improved, and he was discharged regular diet. Wound remained clean. He was ambulating. He was discharged home on the fifth postop day. At the time of discharge, he was afebrile. Wound was clean, tolerating diet, having bowel movements. DISCHARGE MEDICATIONS: [place], and continue all his same home meds as he took prior to admission. Follow up with Dr. Lara in approximately 1 week after discharge. Sent home in satisfactory condition on regular diet. PALAK LARA MD Job#: [id number]
== END 2017-04-16 10:33 | disposition home or self-care (01) | DRG 328 ==
LOC: OR 05:10 → IMCU 12:17
PROVIDERS: ADMIT Surgery; ATTEND Surgery
PROC: 07BC0ZX Excision of Pelvis Lymphatic, Open Approach, Diagnostic (ICD-10-PCS; 2017-04-11)
PROC: 3E1M38X Irrigation of Peritoneal Cavity using Irrigating Substance, Percutaneous Approach, Diagnostic (ICD-10-PCS; 2017-04-11)
PROC: 0DB60ZZ Excision of Stomach, Open Approach (ICD-10-PCS; 2017-04-11)
PROC: 0DTU0ZZ Resection of Omentum, Open Approach (ICD-10-PCS; 2017-04-11)
PROC: 0D160ZA Bypass Stomach to Jejunum, Open Approach (ICD-10-PCS; principal; 2017-04-11 06:48)
DX: D00.2 Carcinoma in situ of stomach (principal); I10 Essential (primary) hypertension; M19.90 Unspecified osteoarthritis, unspecified site
CPT/HCPCS: 36415; 74020; 80048; 80053; 82948; 85025; 88112; 88305; 88307; 88309; 96360; 96361; 96376; 97139; J0690; J1100; J2001; J2250; J2270; J2405; J7120

== ENCOUNTER 2017-11-14 10:44 | Inpatient (IN) | payer MEDICARE, OTHER ==
[2017-11-14] VITALS (27 sets, daily range): BP systolic 82–139; BP diastolic 41–77
[~2017-11-14] VITALS: Ht 177.8 cm; Wt 81.8 kg
[2017-11-14] MEDS ORDERED: SODIUM CHLORIDE 0.9% 1000ML 1,000 ML IV STA ×2 (10:50→11:34)
[2017-11-14] MEDS ORDERED: ONDANSETRON HCL INJ 2 MG/ML VIAL IV STA (10:50)
[2017-11-14 11:24] LABS: BASOPHILS % 0.5 % (0.0-1.0); EOSINOPHILS # (AUTO) 0.1 (0.0-0.4); EOSINOPHILS % 2.7 % (0.0-6.0); HEMATOCRIT 50.4 % (38.2-49.6); HEMOGLOBIN 16.7 g/dL (14.0-18.0); LYMPHOCYTES # (AUTO) 0.8 (1.0-3.2); MEAN CORPUSCULAR HEMOGLOBIN 32.6 pg (28-32); MEAN CORPUSCULAR HGB CONC 33.1 g/dL (31-35); MEAN CORPUSCULAR VOLUME 98.2 fL (81-99); MONOCYTES # (AUTO) 0.1 (0.2-0.8); MONOCYTES % 3.3 % (4.4-11.3); NEUTROPHILS # (AUTO) 0.9 (2.1-6.9); PLATELET COUNT 222 x10e3/uL (140-360); RED BLOOD COUNT 5.13 x10e6/uL (4.3-5.7); RED CELL DISTRIBUTION WIDTH 17.2 % (11.7-14.4)
[2017-11-14 12:21] LABS: PARTIAL THROMBOPLASTIN TIME 22.9 seconds (23.8-35.5)
[2017-11-14 12:22] LABS: INR 1.36; PROTHROMBIN TIME 15.8 seconds (11.9-14.5)
[2017-11-14 12:31] LABS: ALBUMIN 2.9 g/dL (3.5-5.0); ALBUMIN/GLOBULIN RATIO 0.9 (0.8-2.0); ANION GAP 22.7 mmol/L (8-16); CALCIUM 8.6 mg/dL (8.4-10.2); CREATININE, SERUM 1.97 mg/dL (0.72-1.25); POTASSIUM 3.7 mmol/L (3.5-5.1)
[2017-11-14 12:37] LABS: CREATINE KINASE MB 0.8 ng/mL (0-5.0)
[2017-11-14 12:41] LABS: PHOSPHORUS 5.3 MG/DL (2.3-4.7)
[2017-11-14] MEDS ORDERED: DIATRIZOATE MEGL/DIATRIZOA SOD 30 ML BTL PO ONE (12:49)
[2017-11-14] MEDS ORDERED: VANCOMYCIN 1GM/NS 250 ML 250 ML IV SCH ×2 (13:00→15:00)
[2017-11-14 13:26] LABS: PLATELET ESTIMATE ADEQUATE; PLATELET MORPHOLOGY COMMENT NORMAL; RBC MORPHOLOGY COMMENT NORMAL
[2017-11-14 13:27] LABS: ANISOCYTOSIS SLIGHT
[2017-11-14] MEDS ORDERED: CEFEPIME HCL 2 GM VIAL IV SCH ×3 (14:00→21:00)
[2017-11-14] MEDS ORDERED: NOREPINEPHRINE INJ 4MG/4ML 8 MG in DEXTROSE 5% 250ML 250 ML IV STA (14:11)
[2017-11-14] MEDS ORDERED: SODIUM CHLORIDE 0.9% 1000ML 1,000 ML IV ONE (14:15)
[2017-11-14] MEDS ORDERED: NOREPINEPHRINE 8 MG/D5W 250 ML 250 ML ONE (14:22)
[2017-11-14] MEDS ORDERED: SODIUM CHLORIDE 0.9% 1000ML 1,000 ML IV SCH (14:50)
[2017-11-14 14:58] LABS: ABG HCO3 26 mmol/L (23-28); ABG PCO2 37 mmHg (41-51); ABG PH 7.46 (7.31-7.41); ABG PO2 80 mmHg (80-105)
[2017-11-14] MEDS ORDERED: FLUCONAZOLE 100 MG/NS 50 ML 50 ML IV ONE ×2 (15:00→21:30)
[2017-11-14] MEDS ORDERED: ONDANSETRON HCL INJ 2 MG/ML VIAL IV PRN ×2 (15:00→18:00)
[2017-11-14] MEDS ORDERED: ASPIRIN 81 MG CHEW TAB PO ONE (15:00)
[2017-11-14] MEDS ORDERED: MORPHINE SULFATE 2 MG/ML SYR IV PRN (16:00)
[2017-11-14] MEDS ORDERED: FILGRASTIM 300 MCG/ML VIAL SC ONE (16:35)
[2017-11-14] MEDS ORDERED: FAMOTIDINE 20 MG/2 ML VIAL IV SCH (17:00)
[2017-11-14] MEDS ORDERED: PROPOFOL IV EMULSION 10 MG/ML 50 ML VIAL ONE (17:08)
[2017-11-14] MEDS ORDERED: SUCCINYLCHOLINE 200 MG/10 ML SYR ONE (17:08)
[2017-11-14] MEDS ORDERED: LIDOCAINE HCL 2% LOCAL INJ 5 ML SDV VIAL INJ ONE (17:08)
[2017-11-14] MEDS ORDERED: SEVOFLURANE INHAL SOLN 250 ML PEN BTL ONE (17:08)
[2017-11-14] MEDS ORDERED: ROCURONIUM BROMIDE 10 MG/ML 5ML VIAL ONE (17:08)
--- NOTE | 2017-11-14 17:12 | Diagnostic Imaging Report ---
PROCEDURE: CT ABDOMEN AND PELVIS WITHOUT CONTRAST TECHNIQUE: The abdomen and pelvis were scanned utilizing a multidetector helical scanner from the diaphragm to the lesser trochanter without oral contrast. Minimal oral Gastrografin was attempted. No IV contrast was administered because of elevated creatine. Coronal and sagittal multiplanar reformations were obtained. DLP: 530.27 mGy-cm COMPARISON: CT abdomen pelvis 10/10/16.. INDICATIONS: ABDOMINAL PAIN, LEUKOPENIA FINDINGS: ABSENCE OF INTRAVENOUS CONTRAST DECREASES SENSITIVITY FOR DETECTION OF FOCAL LESIONS AND VASCULAR PATHOLOGY. LOWER THORAX: Small bilateral pleural effusions with atelectasis. Subtle scattered airspace opacities in the right middle, right lower, left lower lobes. HEPATOBILIARY: No focal hepatic lesions. No biliary ductal dilatation. SPLEEN: No splenomegaly. PANCREAS: No focal masses or ductal dilatation. ADRENALS: No adrenal nodules. KIDNEYS/URETERS: No hydronephrosis, stones, or solid mass lesions. PELVIC ORGANS/BLADDER: Unremarkable. PERITONEUM / RETROPERITONEUM: Extensive pneumoperitoneum and trace free fluid. LYMPH NODES: No lymphadenopathy. VESSELS: Moderate atherosclerotic calcifications. GI TRACT: Distal gastrectomy with anastomosis. Additional small bowel loop in the left upper abdomen. The stomach and proximal small bowel are diffusely distended with fecalization in the right lower quadrant abdomen (series 2 image 73). Colon is decompressed. Extensive pneumoperitoneum scattered trace free fluid in the abdomen. BONES AND SOFT TISSUES: Unremarkable. IMPRESSION: 1. Previous distal gastrectomy and anastomosis. 2. Stomach and greater than 50% small bowel are distended and may represent ileus versus bowel obstruction. 3. Extensive pneumoperitoneum and trace free fluid, likely perforation. 4. Small bilateral pleural effusions and likely aspiration / pneumonia in the lung bases. Results were discussed with Dr. Topete (ER attending) by Dr. Conroy on 11/14/2017 at 5:10 PM Dictated by: Nikunj Conroy M.D. on 11/14/2017 at 17:17 Electronically approved by: Nikunj Conroy M.D. on 11/14/2017 at 17:17
[2017-11-14 17:20] LABS: ANION GAP 17.8 mmol/L (8-16); CALCIUM 7.9 mg/dL (8.4-10.2); CREATININE, SERUM 1.54 mg/dL (0.72-1.25); POTASSIUM 3.8 mmol/L (3.5-5.1)
[2017-11-14] MEDS ORDERED: FENTANYL CITRATE/PF 100MCG/2 ML INJ ONE (17:26)
[2017-11-14] MEDS: NOREPINEPHRINE 8 MG/D5W 250 ML 250 ML IV SCH (17:45)
--- NOTE | 2017-11-14 17:50 | Diagnostic Imaging Report ---
PROCEDURE: A single AP view of the chest. COMPARISON: Chest x-ray 02/12/2017. CT abdomen and pelvis 11/14/2017. INDICATIONS: weakness, sob FINDINGS: Lines/tubes: Right-sided portacatheter with tip at the atriocaval junction. A left IJ central line with tip at high SVC. Lungs: The lungs are well-inflated. Bibasilar atelectasis and/or consolidation. Right midlung airspace opacities. Pleura: Small bilateral effusions. Heart and mediastinum: The heart and the mediastinum are unremarkable. Bones: No acute bony abnormality. Upper abdomen: Pneumoperitoneum. IMPRESSION: 1. Small bilateral pleural effusions and bibasilar atelectasis and/or pneumonia as previously seen on CT. 2. Right midlung airspace opacity, likely pneumonia. 3. Pneumoperitoneum as seen on same date CT. Dictated by: Nikunj Conroy M.D. on 11/14/2017 at 17:55 Electronically approved by: Nikunj Conroy M.D. on 11/14/2017 at 17:55
--- NOTE | 2017-11-14 18:38 | Consultation ---
DATE OF CONSULTATION: November 14, 2017 REFERRING PHYSICIAN: Dr. Jaskaran Blackman. HISTORY OF PRESENT ILLNESS: The patient is a 72-year-old male known to me. He has a history of carcinoma of the stomach. He underwent subtotal gastrectomy about 8 months ago. He has been treated with chemotherapy. He developed abdominal pain with nausea and vomiting about 3-4 days ago. He came to the emergency room where evaluation revealed perforated hollow viscus. PAST MEDICAL HISTORY: Significant for hypertension, osteoarthritis. Carcinoma of the stomach currently chemotherapy. Previous appendectomy. ALLERGIES: NO KNOWN DRUG ALLERGIES. MEDICATIONS: Listed in chart. FAMILY HISTORY: Noncontributory. SOCIAL HISTORY: Patient is a former smoker, quit many years ago and does not drink alcohol. REVIEW OF SYSTEMS: He has not had any fever. PHYSICAL EXAMINATION: VITALS: Mild tachycardia, heart rate 120. Blood pressure 117/76. Respirations 32. GENERAL: The patient is awake and alert. HEENT: Reveals no scleral icterus. NECK: Has no masses. LUNGS: Have rhonchi bilaterally. CARDIAC: Tachycardia with a regular rate and rhythm. ABDOMEN: Distended with signs of peritonitis diffusely. EXTREMITIES: No edema. NEUROLOGIC: Grossly intact. LABORATORY DATA: White blood count of 1.84. [id number], hematocrit 50. Coagulation studies essentially normal. The chemistries reveal elevated BUN 56, creatinine 1.5, lactate level is 119, which is elevated. ASSESSMENT: A 72-year-old male with perforated hollow viscus, signs of sepsis with granulocytopenia secondary to recent chemotherapy. He will need surgery to repair the perforated hollow viscus. Review of the CT scan suggests it is most likely related to his stomach. Proposed surgery was explained to his family and to the patient including risks, benefits and alternatives. They understand the procedure. They have had the opportunity to ask questions. Thank you for asking me to see Mr. Morgan. Job#: [id number]
--- NOTE | 2017-11-14 18:52 | Consultation ---
DATE OF CONSULTATION: November 14, 2017 PULMONARY CONSULTATION PATIENT OF: Dr. Blackman and Dr. Lara. HISTORY OF PRESENT ILLNESS: A charming, but unfortunate 72-year-old gentleman with history of carcinoma of the stomach, when initial resection margins were close, he underwent partial gastrectomy with Brayan-en-Y; history of smoking in the past; alcohol in the past; received chemotherapy [place] this week. He is a poor historian and somewhat short of breath. According to family, he had been vomiting. He had abdominal pain for over 3 days and no bowel movement for 4 days. He vomited on the . Chemotherapy was started on the . He has adenocarcinoma of the stomach. PHYSICAL EXAMINATION GENERAL: Frail white male, awake and alert. Able to narrate history. On supplemental oxygen. VITAL SIGNS: Blood pressure 117/67, respirations 32, afebrile. HEENT: Head normocephalic, atraumatic. LUNGS: Rales at bases. HEART: Regular rhythm. ABDOMEN: Diffusely distended. EXTREMITIES: Nonedematous. IMPRESSION: 1. Perforated viscous, likely stomach. 2. Constipation. 3. Urinary retention. 4. Dehydration. PLAN: Marlow catheter was placed, 250 mL was removed. Nurse could not place NG tube. This will be placed in OR. Case discussed with anesthesia and surgery. Anticipate therapy of pneumonia. Continue IV antibiotics, decompression, surgical evaluation. Chest x-ray is pending. There is severe neutropenia, white count 1.8, platelets are normal. PT/INR is normal. Case also discussed with family who agrees with Dr. Lara's plan. Thank you for this kind referral. Job#: [id number]
[2017-11-14] MEDS: ALBUTEROL/IPRATROPIUM 3 ML NEB NEB SCH (19:00)
[2017-11-14] MEDS ORDERED: MORPHINE SULFATE INJ 4 MG/ML INJ IV PRN (19:30)
--- NOTE | 2017-11-14 21:18 | Operative Report ---
DATE OF PROCEDURE: November 14, 2017 PREOPERATIVE DIAGNOSES: 1. Perforated hollow viscus. 2. Peritonitis. POSTOPERATIVE DIAGNOSES: 1. Perforated hollow viscus secondary to small-bowel obstruction with small bowel perforation. 2. Also, abdominal wall mass. PROCEDURES: 1. Exploratory laparotomy. 2. Lysis of adhesions with release of small-bowel obstruction. 3. Closure of small bowel perforation. 4. Excision of abdominal wall mass. INSTRUCTOR KINDERGARTEN: None. ANESTHESIA: General endotracheal. INDICATIONS AND FINDINGS: The patient is a 72-year-old male with history of carcinoma of the stomach, who presented with complaints of nausea, vomiting, abdominal pain. Evaluation revealed large amount of free intraperitoneal air. At surgery, patient was found to have large amount of free intraperitoneal air and free fluid, which was murky GI content fluid. There was fibrinous exudate and adhesions on large portion of small bowel. There was found to be a small-bowel obstruction with the proximal bowel being dilated, distal bowel is collapsed with the point of obstruction being caused by adhesive band. There was a perforation in the bowel proximally at area of obstruction at the site of the previous jejunojejunostomy from his previous surgery. Bowel all appeared viable. There was no evidence of cancer. There was a mass in the liver, which was firm and was removed, but appeared to be an area of fat necrosis. TECHNIQUE: After adequate general endotracheal anesthesia with patient in supine position, the abdomen was prepped and draped in sterile fashion with Kali solution. Through upper midline incision, the peritoneal cavity was entered. There was free intraperitoneal air. There was large amount of fluid, which was somewhat murky GI fluid and there was found to be a perforation in the small bowel at the site of jejunojejunostomy. Portion of the fluid sample was taken for culture and sensitivity. The area of the perforation was initially closed with interrupted full-thickness sutures of 3-0 Vicryl. Small bowel was then examined further. There were fibrinous adhesions and exudate on the surface of the small bowel which were broken up. Bowel was followed distally. The distal bowel was noted to be collapsed and there was found to be an adhesive band tethering the small bowel causing the obstruction. Adhesive band was lysed freeing the small bowel completely. Small bowel was examined in its entirety, it all appeared viable, the proximal bowel was dilated, distal bowel was collapsed. The colon had some stool in it, it was otherwise collapsed. There were some adhesions around the stomach, which were not easily evaluated. There was no mass in the liver. There was a firm mass in the abdominal wall and this was excised, and on inspection appeared to be an area of fat necrosis. The area of the small bowel perforation was closed further using seromuscular sutures of 3-0 silk. Care was taken not to narrow the lumen of the small bowel. The peritoneal cavity was then irrigated with large volume of warm saline until the aspirate was clear. Small bowel was then returned to the peritoneal cavity. The wound was inspected for hemostasis, which was seen to be adequate. Fascia was then closed with running suture of #1 PDS, subcutaneous tissue was irrigated with saline, and skin and subcutaneous tissue was dressed open with saline moistened gauze, and sterile dressing applied. The patient remained stable throughout the procedure. Estimated blood loss was 50 mL. There were no complications. He was taken to the intensive care unit in critical condition. Job#: [id number] cc:DR. BERNIE HILTON
[2017-11-14] MEDS: METRONIDAZOLE 500MG/NS 100ML 100 ML IV SCH (21:23)
[2017-11-14] MEDS: CEFEPIME HCL 1 GM VIAL IV SCH (21:23)
[2017-11-14] MEDS: SODIUM CHLORIDE 0.9% 1000ML 1,000 ML IV SCH (21:23)
[2017-11-14] MEDS: FAMOTIDINE 20 MG/2 ML VIAL IV SCH (21:23)
[2017-11-14] MEDS: SODIUM CHLORIDE 0.9% 250ML IRRIG IR SCH (21:23)
[2017-11-14] MEDS ORDERED: METRONIDAZOLE 500MG/NS 100ML 100 ML IV SCH (22:00)
[2017-11-14] MEDS ORDERED: NORCO 5-325 TA1 EACH PO (22:39)
[2017-11-14] MEDS ORDERED: LISINOPRIL10 MG PO (22:39)
[2017-11-14] MEDS ORDERED: ZOFRAN ODT4 MG (22:39)
[2017-11-14] MEDS ORDERED: PROPOFOL IV EMULSION 10MG/ML 100 ML ONE (23:07)
--- NOTE | 2017-11-14 23:13 | Diagnostic Imaging Report ---
EXAMINATION: CHEST XRAY POST PROCEDURE INDICATION: Post intubation in order, endotracheal tube placement verification. COMPARISON: None FINDINGS: TUBES and LINES: Endotracheal tube is visualized along the midline 6.5 cm above the basil. Additionally, well-placed right chest port, left IJ central line catheter with tip at the distal innominate vein and NG tube in good position. LUNGS: Lungs are not well inflated. There are bibasilar atelectasis. There is mild prominence of the central pulmonary vasculature, consistent with pulmonary venous congestion. Mild interlobular septi thickening. PLEURA: Small bilateral pleural effusions. HEART AND MEDIASTINUM: The cardiomediastinal silhouette is unremarkable. There are atherosclerotic calcifications within the aorta. BONES AND SOFT TISSUES: No acute osseous lesion. Soft tissues are unremarkable. UPPER ABDOMEN: No free air under the diaphragm. IMPRESSION: 1. Endotracheal tube 6.5 cm above the basil. 2. Left IJ central line catheter with tip at the level of the distal left innominate vein. (Junction of the bilateral innominate veins.) 3. Findings suggestive of fluid overload and small pleural effusions Signed by: Dr. Art Gill M.D. on 11/14/2017 11:10 PM
[2017-11-15] VITALS (99 sets, daily range): BP systolic 66–131; BP diastolic 25–77
[2017-11-15] MEDS: METRONIDAZOLE 500MG/NS 100ML 100 ML IV SCH ×3 (00:05→17:48)
[2017-11-15] MEDS: SODIUM CHLORIDE 0.9% 250ML IRRIG IR SCH ×6 (00:05→20:00)
[2017-11-15] MEDS ORDERED: PROPOFOL IV EMULSION 10 MG/ML 50 ML VIAL IV PRN (00:15)
[2017-11-15] MEDS: ALBUTEROL/IPRATROPIUM 3 ML NEB NEB SCH ×4 (01:00→19:00)
[2017-11-15] MEDS: SODIUM CHLORIDE 0.9% 1000ML 1,000 ML IV SCH ×4 (01:13→21:59)
[2017-11-15 05:48] LABS: INR 1.6; PROTHROMBIN TIME 17.9 seconds (11.9-14.5)
[2017-11-15 05:49] LABS: PARTIAL THROMBOPLASTIN TIME 29.3 seconds (23.8-35.5)
[2017-11-15] MEDS ORDERED: LACTATED RINGER'S 1,000 ML ONE (06:17)
[2017-11-15] MEDS ORDERED: LACTATED RINGER'S 1,000 ML IV ONE ×2 (06:30→07:30)
[2017-11-15 06:51] LABS: BASOPHILS % 0.9 % (0.0-1.0); EOSINOPHILS % 0.9 % (0.0-6.0); HEMATOCRIT 38.1 % (38.2-49.6); HEMOGLOBIN 12.6 g/dL (14.0-18.0); LYMPHOCYTES # (AUTO) 0.4 (1.0-3.2); LYMPHOCYTES % 40.4 % (18.0-39.1); MEAN CORPUSCULAR HEMOGLOBIN 32.2 pg (28-32); MEAN CORPUSCULAR HGB CONC 33.1 g/dL (31-35); MEAN CORPUSCULAR VOLUME 97.4 fL (81-99); MONOCYTES % 3.7 % (4.4-11.3); NEUTROPHILS # (AUTO) 0.4 (2.1-6.9); NEUTROPHILS % 40.3 % (38.7-80.0); PLATELET COUNT 82 x10e3/uL (140-360); RED BLOOD COUNT 3.91 x10e6/uL (4.3-5.7); RED CELL DISTRIBUTION WIDTH 16.6 % (11.7-14.4)
[2017-11-15 07:01] LABS: BILIRUBIN,URINE NEGATIVE (NEGATIVE); CLARITY,URINE SL CLOUDY (CLEAR); COLOR,URINE YELLOW (YELLOW); KETONES,URINE NEGATIVE (NEGATIVE); LEUKOCYTE ESTERASE ,URINE NEGATIVE (NEGATIVE); NITRITE,URINE NEGATIVE (NEGATIVE); PROTEIN,URINE DIPSTICK TRACE (NEGATIVE); URINE UROBILINOGEN 0.2 mg/dL (0.2 - 1)
--- NOTE | 2017-11-15 07:02 | Diagnostic Imaging Report ---
EXAMINATION: CHEST SINGLE (PORTABLE) INDICATION: Intubation. COMPARISON: 11/14/2017 FINDINGS: TUBES and LINES: Endotracheal, NG tube, right chest port and left IJ central line catheter are stable LUNGS: Lungs are not well inflated. There are bibasilar atelectasis. There is mild prominence of the central pulmonary vasculature, consistent with pulmonary venous congestion. Mild interlobular septi thickening present. PLEURA: Persistent left pleural effusion. HEART AND MEDIASTINUM: The cardiomediastinal silhouette is unremarkable. There are atherosclerotic calcifications within the aorta. BONES AND SOFT TISSUES: No acute osseous lesion. Soft tissues are unremarkable. UPPER ABDOMEN: No free air under the diaphragm. IMPRESSION: 1. Stable chest with evidence of edema and a small left pleural effusion. 2. Tubes and lines are stable Signed by: Dr. Art Gill M.D. on 11/15/2017 6:58 AM
[2017-11-15 07:11] LABS: ALBUMIN 1.6 g/dL (3.5-5.0); ALBUMIN/GLOBULIN RATIO 0.8 (0.8-2.0); CREATININE, SERUM 1.38 mg/dL (0.72-1.25); MAGNESIUM 3.1 MG/DL (1.3-2.1); PHOSPHORUS 2.5 MG/DL (2.3-4.7)
[2017-11-15 07:15] LABS: CALCIUM 6.6 mg/dL (8.4-10.2)
[2017-11-15 07:16] LABS: BACTERIA,URINE FEW /HPF; EPITHELIAL CELLS,URINE RARE /LPF; RBC,URINE 0-5 /HPF (0-5); RENAL EPITHELIAL CELLS,URINE RARE; TRANSITIONAL EPI CELLS,URINE FEW; WBC,URINE (MAN) 0-5 /HPF (0-5)
[2017-11-15 08:20] LABS: ANISOCYTOSIS SLIGHT; BLAST CELLS % MANUAL 2; HYPOCHROMASIA SLIGHT; LYMPHOCYTES % (MANUAL) 32 % (19-48); METAMYELOCYTES % (MANUAL) 6 % (0-0); MONOCYTES % (MANUAL) 8 % (3.4-9.0); MYELOCYTES % (MANUAL) 4 % (0-0); NEUTROPHILS % (MANUAL) 2 % (40-74); PLATELET ESTIMATE MODERATELY DECREASED; PLATELET MORPHOLOGY COMMENT FEW GIANT; POIKILOCYTOSIS SLIGHT; RBC MORPHOLOGY COMMENT NORMAL
[2017-11-15] MEDS: CEFEPIME HCL 1 GM VIAL IV SCH ×2 (08:35→21:50)
[2017-11-15] MEDS: FAMOTIDINE 20 MG/2 ML VIAL IV SCH (08:35)
[2017-11-15] MEDS: FILGRASTIM 300 MCG/ML VIAL SC SCH (08:36)
[2017-11-15 09:52] LABS: ABG HCO3 14 mmol/L (23-28); ABG PCO2 27 mmHg (41-51); ABG PH 7.33 (7.31-7.41); ABG PO2 84 mmHg (80-105)
[2017-11-15] MEDS ORDERED: MIDAZOLAM HCL 25 MG in SODIUM CHLORIDE 0.9% 50ML 45 ML IV PRN (10:15)
--- NOTE | 2017-11-15 12:39 | Consultation ---
DATE OF CONSULTATION: November 15, 2017 ATTENDING PHYSICIAN: Dr. Blackman Thank you, Dr. Blackman, for this consultation. This is a very pleasant gentleman with a history of stomach cancer, status post subtotal gastrectomy about 8 months ago, hypertension, osteoarthritis. Currently in the hospital with worsening abdominal pain associated with nausea and vomiting for the last 3 days. The patient is currently on adjuvant chemo. His last chemo was 3 days back. At the time of admission, the patient was worked up and concern was a small-bowel obstruction. The patient was followed by surgeon and required exploratory laparotomy. Found to have adhesions and also small-bowel obstruction with perforation of the small bowel above the obstruction. The patient also has abdominal wall mass. The patient received lysis of adhesions, closure of the small-bowel perforation, excision of abdominal wall mass. Pathology report is pending. The patient's workup showed neutropenia and worsening thrombocytopenia with no evidence of any bleeding. The patient is currently intubated and sedated. PAST MEDICAL HISTORY: Stomach cancer, currently on chemo, status post surgery. Hypertension, osteoarthritis. ALLERGIES: NKDA. MEDICATIONS: List reviewed. FAMILY HISTORY: Noncontributory. SOCIAL HISTORY: The patient is a former smoker many years ago. No alcohol. REVIEW OF SYSTEMS: Could not get because of intubation. PHYSICAL EXAMINATION GENERAL: The patient is intubated and sedated. HEENT: Normocephalic and atraumatic. Sclerae pink and conjunctivae clear. NECK: Supple. CHEST: Decreased breath sounds at the bases. CARDIOVASCULAR: Regular rate and rhythm. ABDOMEN: Soft. Nontender. EXTREMITIES: No edema. LABS AND IMAGING: Reviewed. ASSESSMENT AND PLAN 1. The patient has a history of multiple medical conditions. I am currently following for neutropenia and pancytopenia. The patient has worsening pancytopenia because of the recent chemotherapy. The patient will benefit from Neupogen treatment. Will follow the platelet count closely. In case of worsening thrombocytopenia and evidence of bleeding, the patient will receive platelets transfusion. We will also monitor hemoglobin closely. Recommend contact isolation. Will monitor the patient. 2. Stomach cancer. The patient is status post surgery. Currently on adjuvant chemotherapy. So far, no evidence of any active malignancy. 3. We will continue the remaining care. Will follow the patient. Job#: [id number]
[2017-11-15] MEDS ORDERED: VANCOMYCIN 1GM/NS 250 ML 250 ML IV SCH (13:00)
[2017-11-15] MEDS ORDERED: SODIUM CHLORIDE 0.9% 1000ML 1,000 ML IV SCH (15:15)
[2017-11-15] MEDS ORDERED: IPRATROPIUM BROMIDE 0.02% 2.5 ML NEB ONE (15:19)
[2017-11-15] MEDS: IPRATROPIUM BROMIDE 0.02% 2.5 ML NEB NEB PRN ×2 (15:22→19:00)
[2017-11-15] MEDS ORDERED: MICAFUNGIN SODIUM 50 MG/50 ML BAG IV SCH (17:30)
[2017-11-15] MEDS ORDERED: AMIKACIN SULFATE 250 MG/ML 2ML VIAL IV ONE (17:30)
[2017-11-15] MEDS: NOREPINEPHRINE 8 MG/D5W 250 ML 250 ML IV SCH (17:49)
[2017-11-15] MEDS ORDERED: AMIKACIN SULFATE IV ONE (18:00)
[2017-11-15] MEDS ORDERED: SODIUM CHLORIDE 0.9% IV ONE (18:00)
--- NOTE | 2017-11-15 18:07 | Consultation ---
DATE OF CONSULTATION: November 15, 2017 ATTENDING PHYSICIAN: Dr. Blackman REASON FOR CONSULTATION: Peritonitis. Thank you Dr. Blackman for asking me to see this patient. HISTORY: The patient is a 72-year-old man referred for peritonitis. He is unable to give history because he is sedated and intubated. Therefore information was obtained from the and was supplemented by chart review. The patient presented to emergency department yesterday with epigastric pain which began 2 days earlier. Initially the patient thought he needed to have a bowel movement and took a laxative without improvement. Day prior to admission, he began having nausea and vomiting. He did not have fever. In emergency department, he was noted to have temperature of 97 degrees Fahrenheit, pulse 114, respiratory rate 20, blood pressure 84/58 and oxygen saturation 92% on room air. Initial laboratory studies showed blood leukocyte count of 1,840 with 49% neutrophils, BUN [address] scan of the abdomen and pelvis showed extensive pneumoperitoneum and trace free fluid, and small bilateral pleural effusions and likely aspiration pneumonia in the lung bases. The patient was evaluated by the surgical service and underwent emergent exploratory laparotomy which revealed small bowel obstruction with perforation, as well as anterior abdominal wall mass. The patient has been on weekly chemotherapy for 7 weeks, the last dose was on 11/12/2017. PAST MEDICAL HISTORY: Hypertension, stomach cancer on chemotherapy. PAST SURGICAL HISTORY: Partial gastrectomy for gastric cancer and appendectomy. ALLERGIES: NO KNOWN DRUG ALLERGIES. MEDICATION: The current antibiotics are cefepime 1 gram IV piggyback q. 12 hours and metronidazole 500 mg IV piggyback q.8 hours. He received fluconazole 100 mg IV piggyback once. IMMUNIZATIONS: Received pneumococcal vaccination prior to admission. FAMILY HISTORY: Noncontributory. SOCIAL HISTORY: Quit smoking cigarettes many years ago. No alcohol use. REVIEW OF SYSTEMS: Unable to obtain. PHYSICAL EXAMINATION GENERAL: Critically ill on respiratory support. VITAL SIGNS: T-max 100.8, pulse 106, respiratory rate 22, blood pressure 98/64 on pressor, weight 182 pounds. HEENT: Normocephalic. There is no icterus or injection of conjunctivae. There is no ear or nasal discharge. Orally intubated. NECK: Supple. LUNGS: Rhonchi bilaterally. HEART: Normal S1 and S2. Tachycardic. ABDOMEN: Distended. The laparotomy wound dressing in place. EXTREMITIES: There is no edema, clubbing or cyanosis. SKIN: There is no acute erythema. CRIPPLE CUTTER: Sedated. LABORATORY AND DIAGNOSTICS: WBC 1090, hemoglobin 12.6, platelets 82,000 down from 222,000 on admission, neutrophils 40.3, lymph 14.4, mono 3.7, eosinophils 0.9, basophils 0.9. BUN 52, creatinine 1.38. AST 23, ALT 8, alk phos 47, total bilirubin 1.6. Blood culture is pending. Peritoneal fluid aspirate is growing gram-negative Bacillus. IMPRESSION: 1. Septic shock. 2. Neutropenic fever. 3. Immunosuppression due to cancer chemotherapy. 4. Small bowel obstruction with perforation. 5. Acute peritonitis. 6. Acute respiratory failure due to septic shock. 7. Acute kidney injury due to septic shock. 8. Gastric cancer. PLAN 1. Await culture results. 2. Start 100 mg IV piggyback q.24 hours and amikacin 600 mg IV piggyback once today. Job#: [id number] BEE
[2017-11-15] MEDS: CALCIUM GLUCONATE 10% INJ 4.65 MEQ in SODIUM CHLORIDE 0.9% 50ML 100 ML IV SCH (18:21)
[2017-11-15] MEDS ORDERED: SODIUM CHLORIDE 0.9% 1000ML 1,000 ML IV ONE ×2 (20:15→21:15)
[2017-11-15] MEDS ORDERED: VASOPRESSIN 100 UNIT in DEXTROSE 5% 100ML 100 ML IV PRN (20:15)
[2017-11-15] MEDS: MICAFUNGIN SODIUM 100 ML IV SCH (21:36)
[2017-11-15] MEDS: CENTRAL TPN FORMULA 1 BAG IV SCH (23:00)
[2017-11-16] VITALS (96 sets, daily range): BP systolic 85–155; BP diastolic 47–84
[2017-11-16] MEDS: SODIUM CHLORIDE 0.9% 250ML IRRIG IR SCH ×7 (00:23→23:52)
[2017-11-16] MEDS: ALBUTEROL/IPRATROPIUM 3 ML NEB NEB SCH ×4 (01:00→19:00)
[2017-11-16] MEDS: IPRATROPIUM BROMIDE 0.02% 2.5 ML NEB NEB PRN ×3 (03:00→14:58)
[2017-11-16 05:40] LABS: HEMATOCRIT 33.2 % (38.2-49.6); HEMOGLOBIN 10.8 g/dL (14.0-18.0); MEAN CORPUSCULAR HEMOGLOBIN 31.9 pg (28-32); MEAN CORPUSCULAR HGB CONC 32.5 g/dL (31-35); MEAN CORPUSCULAR VOLUME 97.9 fL (81-99); RED BLOOD COUNT 3.39 x10e6/uL (4.3-5.7); RED CELL DISTRIBUTION WIDTH 16.5 % (11.7-14.4)
--- NOTE | 2017-11-16 06:12 | Diagnostic Imaging Report ---
EXAMINATION: CHEST SINGLE (PORTABLE) INDICATION: Intubation. COMPARISON: 11/15/2017 FINDINGS: TUBES and LINES: Endotracheal, NG tube, left IJ central line catheter and right chest port are stable. LUNGS: Lungs are not well inflated. There are bibasilar atelectasis. There is perihilar interstitial opacities, consistent with interstitial edema. PLEURA: Small left pleural effusion. HEART AND MEDIASTINUM: The cardiomediastinal silhouette is unremarkable. BONES AND SOFT TISSUES: No acute osseous lesion. Soft tissues are unremarkable. UPPER ABDOMEN: No free air under the diaphragm. IMPRESSION: Findings are compatible with fluid overload, bibasilar atelectasis/edema and left pleural effusion. Signed by: Dr. Art Gill M.D. on 11/16/2017 6:09 AM
[2017-11-16 06:13] LABS: ANION GAP 11.1 mmol/L (8-16); BLOOD UREA NITROGEN 38 mg/dL (7-26); BUN/CREATININE RATIO 38 (6-25); CARBON DIOXIDE 17 mmol/L (22-29); CHLORIDE 112 mmol/L (98-107); CREATININE, SERUM 1.01 mg/dL (0.72-1.25); EST GLOMERULAR FILTRATION RATE > 60 ML/MIN (60-); GLUCOSE 228 mg/dL (74-118); POTASSIUM 4.1 mmol/L (3.5-5.1); SODIUM 136 mmol/L (136-145)
[2017-11-16 06:16] LABS: CALCIUM 6.5 mg/dL (8.4-10.2)
[2017-11-16] MEDS: SODIUM CHLORIDE 0.9% 1000ML 1,000 ML IV SCH ×3 (06:20→20:45)
[2017-11-16 06:23] LABS: PLATELET COUNT 37 x10e3/uL (140-360)
[2017-11-16 07:37] LABS: ANISOCYTOSIS SLIGHT; BURR CELLS SLIGHT; HYPOCHROMASIA SLIGHT; PLATELET ESTIMATE MARKEDLY DECREASED; RBC MORPHOLOGY COMMENT NORMAL
[2017-11-16 07:38] LABS: PLATELET MORPHOLOGY COMMENT NORMAL
[2017-11-16] MEDS: METRONIDAZOLE 500MG/NS 100ML 100 ML IV SCH ×3 (08:59→17:05)
[2017-11-16] MEDS ORDERED: DEXTROSE 50% SYRINGE 50 ML IV PRN (09:00)
[2017-11-16] MEDS: PANTOPRAZOLE 40 MG 10ML VIAL IV SCH (09:10)
[2017-11-16] MEDS: CEFEPIME HCL 1 GM VIAL IV SCH (09:10)
[2017-11-16] MEDS: FILGRASTIM 300 MCG/ML VIAL SC SCH (09:20)
[2017-11-16] MEDS: CALCIUM GLUCONATE 10% INJ 4.65 MEQ in SODIUM CHLORIDE 0.9% 50ML 100 ML IV SCH (09:20)
[2017-11-16] MEDS: CENTRAL TPN FORMULA 1 BAG IV SCH ×2 (10:15→20:55)
[2017-11-16] MEDS: INSULIN LISPRO 100 UNIT/1 ML 3ML VIAL SQ SCH ×3 (11:53→20:41)
[2017-11-16] MEDS: NOREPINEPHRINE 8 MG/D5W 250 ML 250 ML IV SCH (14:51)
[2017-11-16] MEDS ORDERED: AMIKACIN SULFATE 250 MG/ML 2ML VIAL IV ONE (15:45)
[2017-11-16] MEDS ORDERED: AMIKACIN SULFATE 600 MG in SODIUM CHLORIDE 0.9% 100 ML IV ONE (17:00)
[2017-11-16] MEDS: MICAFUNGIN SODIUM 100 ML IV SCH (19:30)
[2017-11-17] VITALS (60 sets, daily range): BP systolic 60–145; BP diastolic 58–91
[2017-11-17] MEDS: METRONIDAZOLE 500MG/NS 100ML 100 ML IV SCH ×3 (00:28→16:40)
[2017-11-17] MEDS: ALBUTEROL/IPRATROPIUM 3 ML NEB NEB SCH ×4 (01:00→18:56)
[2017-11-17] MEDS: SODIUM CHLORIDE 0.9% 250ML IRRIG IR SCH ×5 (03:08→21:08)
[2017-11-17 05:10] LABS: BASOPHILS # (AUTO) 0.1 (0.0-0.1); EOSINOPHILS % 0.6 % (0.0-6.0); HEMATOCRIT 28.2 % (38.2-49.6); HEMOGLOBIN 9.5 g/dL (14.0-18.0); LYMPHOCYTES # (AUTO) 0.7 (1.0-3.2); LYMPHOCYTES % 10.2 % (18.0-39.1); MEAN CORPUSCULAR HEMOGLOBIN 32.4 pg (28-32); MEAN CORPUSCULAR HGB CONC 33.7 g/dL (31-35); MEAN CORPUSCULAR VOLUME 96.2 fL (81-99); MONOCYTES # (AUTO) 0.3 (0.2-0.8); MONOCYTES % 3.6 % (4.4-11.3); NEUTROPHILS # (AUTO) 5.9 (2.1-6.9); NEUTROPHILS % 82.8 % (38.7-80.0); RED BLOOD COUNT 2.93 x10e6/uL (4.3-5.7); RED CELL DISTRIBUTION WIDTH 16.6 % (11.7-14.4)
[2017-11-17 05:13] LABS: PLATELET COUNT 24 x10e3/uL (140-360)
[2017-11-17 05:27] LABS: ANION GAP 9.5 mmol/L (8-16); BLOOD UREA NITROGEN 31 mg/dL (7-26); BUN/CREATININE RATIO 37 (6-25); CARBON DIOXIDE 22 mmol/L (22-29); CHLORIDE 111 mmol/L (98-107); CREATININE, SERUM 0.83 mg/dL (0.72-1.25); EST GLOMERULAR FILTRATION RATE > 60 ML/MIN (60-); GLUCOSE 183 mg/dL (74-118); POTASSIUM 3.5 mmol/L (3.5-5.1); SODIUM 139 mmol/L (136-145)
[2017-11-17 05:28] LABS: CALCIUM 6.8 mg/dL (8.4-10.2)
[2017-11-17 06:33] LABS: BAND NEUTROPHILS % (MANUAL) 5 %; LYMPHOCYTES % (MANUAL) 16 % (19-48); MONOCYTES % (MANUAL) 3 % (3.4-9.0); MYELOCYTES % (MANUAL) 1 % (0-0); NEUTROPHILS % (MANUAL) 74 % (40-74); RBC MORPHOLOGY COMMENT NORMAL
[2017-11-17 06:34] LABS: PLATELET ESTIMATE MODERATELY DECREASED; PLATELET MORPHOLOGY COMMENT NORMAL
[2017-11-17 06:35] LABS: ANISOCYTOSIS SLIGHT
--- NOTE | 2017-11-17 06:58 | Diagnostic Imaging Report ---
EXAMINATION: CHEST SINGLE (PORTABLE) INDICATION: Intubated COMPARISON: 11/16/2017 FINDINGS: TUBES and LINES: Endotracheal, NG tube, left IJ central line catheter and right chest port are stable. LUNGS: Lungs are not well inflated. There are bibasilar atelectasis. There is perihilar interstitial opacities, consistent with worsening interstitial edema. PLEURA: Small left pleural effusion. HEART AND MEDIASTINUM: The cardiomediastinal silhouette is unremarkable. BONES AND SOFT TISSUES: No acute osseous lesion. Soft tissues are unremarkable. UPPER ABDOMEN: No free air under the diaphragm. IMPRESSION: Findings are compatible with worsening fluid overload, bibasilar atelectasis/edema and left pleural effusion. Signed by: Dr. Art Gill M.D. on 11/17/2017 6:55 AM
[2017-11-17] MEDS: PANTOPRAZOLE 40 MG 10ML VIAL IV SCH (08:32)
[2017-11-17] MEDS: SODIUM CHLORIDE 0.9% 1000ML 1,000 ML IV SCH ×2 (08:32→19:36)
[2017-11-17] MEDS: INSULIN LISPRO 100 UNIT/1 ML 3ML VIAL SQ SCH ×3 (08:34→17:20)
[2017-11-17] MEDS: CALCIUM GLUCONATE 10% INJ 4.65 MEQ in SODIUM CHLORIDE 0.9% 50ML 100 ML IV SCH (09:00)
[2017-11-17] MEDS ORDERED: FUROSEMIDE INJ 10 MG/ML 2 ML VIAL IV ONE (12:00)
[2017-11-17] MEDS ORDERED: AMIKACIN SULFATE 250 MG/ML 2ML VIAL IV ONE (20:30)
[2017-11-17] MEDS ORDERED: PIPER-TAZ 3.375 GM 50 ML ONE (21:00)
[2017-11-17] MEDS: CENTRAL TPN FORMULA 1 BAG IV SCH (21:09)
[2017-11-17] MEDS: MICAFUNGIN SODIUM 100 ML IV SCH (21:09)
[2017-11-17] MEDS ORDERED: DEXTROSE 5% IV SCH (22:00)
[2017-11-17] MEDS ORDERED: AMIKACIN SULFATE IV SCH (22:00)
[2017-11-17] MEDS ORDERED: AMIKACIN SULFATE 250 MG/ML 2ML VIAL ONE (23:00)
[2017-11-17] MEDS ORDERED: DEXTROSE 5% 250ML 250 ML IV ONE (23:08)
[2017-11-18] VITALS (54 sets, daily range): BP systolic 86–129; BP diastolic 56–75
[2017-11-18] MEDS: SODIUM CHLORIDE 0.9% 1000ML 1,000 ML IV SCH ×2 (00:18→20:16)
[2017-11-18] MEDS: INSULIN LISPRO 100 UNIT/1 ML 3ML VIAL SQ SCH ×5 (00:19→23:52)
[2017-11-18] MEDS: METRONIDAZOLE 500MG/NS 100ML 100 ML IV SCH ×3 (00:22→16:08)
[2017-11-18] MEDS: NOREPINEPHRINE 8 MG/D5W 250 ML 250 ML IV SCH (00:31)
[2017-11-18] MEDS: ALBUTEROL/IPRATROPIUM 3 ML NEB NEB SCH ×5 (02:50→19:27)
[2017-11-18] MEDS: SODIUM CHLORIDE 0.9% 250ML IRRIG IR SCH ×7 (03:00→23:53)
[2017-11-18 05:20] LABS: BASOPHILS % 0.1 % (0.0-1.0); EOSINOPHILS # (AUTO) 0.1 (0.0-0.4); EOSINOPHILS % 1.6 % (0.0-6.0); HEMATOCRIT 29.8 % (38.2-49.6); HEMOGLOBIN 9.7 g/dL (14.0-18.0); LYMPHOCYTES # (AUTO) 0.9 (1.0-3.2); LYMPHOCYTES % 13.3 % (18.0-39.1); MEAN CORPUSCULAR HEMOGLOBIN 32.4 pg (28-32); MEAN CORPUSCULAR HGB CONC 32.6 g/dL (31-35); MONOCYTES # (AUTO) 0.7 (0.2-0.8); MONOCYTES % 9.2 % (4.4-11.3); NEUTROPHILS # (AUTO) 5.3 (2.1-6.9); NEUTROPHILS % 74.7 % (38.7-80.0); PLATELET COUNT 57 x10e3/uL (140-360); RED BLOOD COUNT 2.99 x10e6/uL (4.3-5.7)
[2017-11-18 06:04] LABS: MEAN CORPUSCULAR VOLUME 99.7 fL (81-99)
--- NOTE | 2017-11-18 06:52 | Diagnostic Imaging Report ---
EXAMINATION: CHEST SINGLE (PORTABLE) INDICATION: Intubated COMPARISON: 11/17/2017 FINDINGS: TUBES and LINES: Endotracheal, NG tube, left IJ central line catheter and right chest port are stable. LUNGS: Lungs are not well inflated. Interval improvement in interstitial edema. Development of left upper lobe confluent opacity. PLEURA: Stable left pleural effusion HEART AND MEDIASTINUM: The cardiomediastinal silhouette is unremarkable. BONES AND SOFT TISSUES: No acute osseous lesion. Soft tissues are unremarkable. UPPER ABDOMEN: No free air under the diaphragm. IMPRESSION: 1. Findings are compatible with improving pulmonary edema. 2. Left upper lobe confluent opacity is suspicious for infection. Signed by: Dr. Art Gill M.D. on 11/18/2017 6:49 AM
[2017-11-18 07:33] LABS: ANION GAP 10.3 mmol/L (8-16); BLOOD UREA NITROGEN 32 mg/dL (7-26); BUN/CREATININE RATIO 40 (6-25); CARBON DIOXIDE 22 mmol/L (22-29); CHLORIDE 109 mmol/L (98-107); CREATININE, SERUM 0.81 mg/dL (0.72-1.25); EST GLOMERULAR FILTRATION RATE > 60 ML/MIN (60-); GLUCOSE 162 mg/dL (74-118); POTASSIUM 3.3 mmol/L (3.5-5.1); SODIUM 138 mmol/L (136-145)
[2017-11-18] MEDS: PANTOPRAZOLE 40 MG 10ML VIAL IV SCH (08:57)
[2017-11-18 09:23] LABS: BAND NEUTROPHILS % (MANUAL) 45 %; EOSINOPHILS % (MANUAL) 2 % (0-7); LYMPHOCYTES % (MANUAL) 19 % (19-48); MONOCYTES % (MANUAL) 9 % (3.4-9.0); NEUTROPHILS % (MANUAL) 25 % (40-74)
[2017-11-18 09:24] LABS: PLATELET ESTIMATE MARKEDLY DECREASED; PLATELET MORPHOLOGY COMMENT NORMAL; RBC MORPHOLOGY COMMENT NORMAL
[2017-11-18 09:45] LABS: ABG HCO3 23 mmol/L (23-28); ABG PCO2 35 mmHg (41-51); ABG PH 7.44 (7.31-7.41); ABG PO2 95 mmHg (80-105)
[2017-11-18] MEDS: CALCIUM GLUCONATE 10% INJ 4.65 MEQ in SODIUM CHLORIDE 0.9% 50ML 100 ML IV SCH (10:00)
[2017-11-18] MEDS ORDERED: POTASSIUM CHLORIDE 20MEQ/100ML 100 ML IV ONE (11:00)
[2017-11-18] MEDS ORDERED: MIDAZOLAM HCL 2 MG/2 ML VIAL IV PRN (11:15)
--- NOTE | 2017-11-18 15:19 | Diagnostic Imaging Report ---
Exam: Head CT without contrast History: Altered mental status Comparison studies: Head CT 04/18/2015 Technique: Axial images were obtained from the skull base to the vertex. Coronal and sagittal images reconstructed from the axial data. Intravenous contrast: None Findings: Scalp: Incidental unchanged small left frontal subgaleal lipoma. Bones: No fractures, blastic or lytic lesions. Brain sulci: Mildly probably. Ventricles: Mild compensatory dilatation. No hydrocephalus. Extra-axial spaces: No masses, no fluid collection. Parenchyma: No mass, acute hemorrhage or acute cortical vascular insults. Sellar/suprasellar region: No abnormalities. Craniocervical junction: Patent foramen magnum. No Chiari one malformation. Included paranasal sinuses: Chronic mucoperiosteal thickening with fluid level in the right sphenoid sinus, similar to previous. Partially opacified right maxillary sinus with mucosal thickening and fluid. Right frontal sinus rent or ethmoids are opacified. Improved aeration in the posterior right since the 2015 exam. IMPRESSION: 1. No acute intracranial abnormalities. 2. Mild generalized volume loss. 3. Inflammatory changes in the paranasal sinuses with sinus fluid levels which could be correlated for acute sinusitis. Signed by: Dr. Richie Bee M.D. on 11/18/2017 3:16 PM
[2017-11-18] MEDS: CENTRAL TPN FORMULA 1 BAG IV SCH (20:18)
[2017-11-18] MEDS ORDERED: AMIKACIN SULFATE 600 MG in SODIUM CHLORIDE 0.9% 100 ML IV ONE (20:30)
[2017-11-18] MEDS ORDERED: AMIKACIN SULFATE 250 MG/ML 2ML VIAL IV ONE (20:30)
[2017-11-18] MEDS: MICAFUNGIN SODIUM 100 ML IV SCH (23:00)
[2017-11-19] VITALS (40 sets, daily range): BP systolic 99–133; BP diastolic 62–92
[2017-11-19] MEDS: METRONIDAZOLE 500MG/NS 100ML 100 ML IV SCH ×4 (00:04→23:13)
[2017-11-19] MEDS: ALBUTEROL/IPRATROPIUM 3 ML NEB NEB SCH ×4 (01:25→19:25)
[2017-11-19 04:51] LABS: BASOPHILS # (AUTO) 0.1 (0.0-0.1); BASOPHILS % 0.7 % (0.0-1.0); EOSINOPHILS # (AUTO) 0.2 (0.0-0.4); EOSINOPHILS % 1.9 % (0.0-6.0); HEMATOCRIT 28.1 % (38.2-49.6); HEMOGLOBIN 9.4 g/dL (14.0-18.0); LYMPHOCYTES # (AUTO) 1.3 (1.0-3.2); LYMPHOCYTES % 14.8 % (18.0-39.1); MEAN CORPUSCULAR HEMOGLOBIN 32.6 pg (28-32); MEAN CORPUSCULAR HGB CONC 33.5 g/dL (31-35); MEAN CORPUSCULAR VOLUME 97.6 fL (81-99); MONOCYTES # (AUTO) 0.8 (0.2-0.8); MONOCYTES % 8.5 % (4.4-11.3); NEUTROPHILS # (AUTO) 6.4 (2.1-6.9); NEUTROPHILS % 72.1 % (38.7-80.0); PLATELET COUNT 87 x10e3/uL (140-360); RED BLOOD COUNT 2.88 x10e6/uL (4.3-5.7)
[2017-11-19 05:13] LABS: ANION GAP 10.4 mmol/L (8-16); BLOOD UREA NITROGEN 34 mg/dL (7-26); BUN/CREATININE RATIO 45 (6-25); CARBON DIOXIDE 22 mmol/L (22-29); CHLORIDE 115 mmol/L (98-107); CREATININE, SERUM 0.75 mg/dL (0.72-1.25); EST GLOMERULAR FILTRATION RATE > 60 ML/MIN (60-); GLUCOSE 155 mg/dL (74-118); POTASSIUM 3.4 mmol/L (3.5-5.1); SODIUM 144 mmol/L (136-145)
[2017-11-19] MEDS: SODIUM CHLORIDE 0.9% 250ML IRRIG IR SCH ×6 (05:21→23:04)
[2017-11-19] MEDS: INSULIN LISPRO 100 UNIT/1 ML 3ML VIAL SQ SCH ×4 (05:21→23:13)
[2017-11-19 05:28] LABS: CALCIUM 6.8 mg/dL (8.4-10.2)
--- NOTE | 2017-11-19 06:28 | Diagnostic Imaging Report ---
EXAMINATION: CHEST SINGLE (PORTABLE) INDICATION: Intubation. COMPARISON: 11/18/2017 FINDINGS: TUBES and LINES: Endotracheal, NG tube, left IJ central line catheter and right chest port are stable in position. LUNGS: Lungs are not well inflated. There are bibasilar atelectasis. There is perihilar interstitial opacities, consistent with interstitial edema. PLEURA: No pleural effusion or pneumothorax. HEART AND MEDIASTINUM: The cardiomediastinal silhouette is unremarkable. BONES AND SOFT TISSUES: No acute osseous lesion. Soft tissues are unremarkable. UPPER ABDOMEN: No free air under the diaphragm. IMPRESSION: 1. Findings are compatible with improved pulmonary edema/fluid overload. 2. Previous noted left upper lobe airspace disease has resolved, compatible with asymmetrical edema. 3. Tubes and lines are stable. Signed by: Dr. Art Gill M.D. on 11/19/2017 6:24 AM
[2017-11-19 07:04] LABS: BAND NEUTROPHILS % (MANUAL) 6 %; EOSINOPHILS % (MANUAL) 4 % (0-7); HYPOCHROMASIA SLIGHT; LYMPHOCYTES % (MANUAL) 13 % (19-48); MONOCYTES % (MANUAL) 6 % (3.4-9.0); NEUTROPHILS % (MANUAL) 64 % (40-74)
[2017-11-19 07:05] LABS: ANISOCYTOSIS SLIGHT; PLATELET ESTIMATE MODERATELY DECREASED; PLATELET MORPHOLOGY COMMENT FEW LARGE; RBC MORPHOLOGY COMMENT NORMAL
[2017-11-19 08:44] LABS: ABG HCO3 22 mmol/L (23-28); ABG PCO2 33 mmHg (41-51); ABG PH 7.43 (7.31-7.41); ABG PO2 96 mmHg (80-105)
[2017-11-19] MEDS ORDERED: CALCIUM GLUCONATE 10% INJ 0.465 MEQ/ML VIAL ONE (09:39)
[2017-11-19] MEDS ORDERED: SODIUM CHLORIDE 0.9% 100 ML ONE (09:40)
[2017-11-19] MEDS: CALCIUM GLUCONATE 10% INJ 4.65 MEQ in SODIUM CHLORIDE 0.9% 50ML 100 ML IV SCH (09:41)
[2017-11-19] MEDS: PANTOPRAZOLE 40 MG 10ML VIAL IV SCH (09:41)
[2017-11-19] MEDS: SODIUM CHLORIDE FLUSH 10 ML SYR INJ PRN (09:42)
[2017-11-19] MEDS: ONDANSETRON HCL INJ 2 MG/ML VIAL IV PRN (09:42)
[2017-11-19] MEDS: POTASSIUM CHLORIDE 20MEQ/100ML 100 ML IV PRN (12:09)
[2017-11-19] MEDS ORDERED: CENTRAL TPN FORMULA 1 BAG IV SCH (13:33)
[2017-11-19] MEDS: SODIUM CHLORIDE 0.9% 1000ML 1,000 ML IV SCH (16:27)
[2017-11-19] MEDS: EYE LUBRICANT OPTH OINT 3.5GM TUBE OP SCH (17:45)
[2017-11-19] MEDS: MICAFUNGIN SODIUM 100 ML IV SCH (20:27)
--- NOTE | 2017-11-19 20:27 | Consultation ---
DATE OF CONSULTATION: November 19, 2017 NEUROLOGY CONSULT NOTE HISTORY OF PRESENT ILLNESS: Mr. Morgan is a 72-year-old man with past medical history significant for carcinoma of the stomach, status post subtotal gastrectomy and currently receiving chemotherapy, who presented to the Emergency Center at [facility] on November 14, 2017 with a 3 to 4 day history of abdominal pain with nausea and vomiting and constipation. His evaluation in the Emergency Center revealed a possible perforation of a hollow viscus. Mr. Morgan was taken for an exploratory laparotomy which revealed adhesions, a small bowel obstruction with perforation above the level of the obstruction, and an abdominal wall mass. Patient underwent lysis of the adhesions, closer of the perforation, and resection of the abdominal wall mass. Following the procedure, the patient was admitted to the intensive care unit. He was sedated for approximately 48 hours with a Versed drip. This was discontinued on 11/16/2017. During this time, he received morphine as well. This was last received on November 17, 2017. Despite discontinuing sedative/hypnotic and pain medications 72 and 48 hours ago, respectively, patient has remained unresponsive/poorly responsive. A neurology consultation is requested for further evaluation. Patient's and other family members who are at the bedside report similar experience when the patient underwent his subtotal gastrectomy several months ago. Following this procedure, the patient did receive morphine. His reports the patient did not become responsive for approximately 3 to 4 days after the last dose of morphine was administrated. REVIEW OF SYSTEMS: Unable to obtain secondary to the patient being intubated. PAST MEDICAL HISTORY: Hypertension, osteoarthritis, carcinoma of the stomach-currently receiving chemotherapy. PAST SURGICAL HISTORY: A subtotal gastrectomy, appendectomy, exploratory laparotomy (as per history of present illness). PAST HOSPITALIZATIONS: Surgeries/procedures as listed. FAMILY MEDICAL HISTORY: Noncontributory. SOCIAL HISTORY: Mr. Morgan is . He is retired. There is a remote history of tobacco use. There is no reported alcohol or recreational drug use. HOME MEDICATIONS: Vitamin C 500 mg by mouth daily, vitamin D3 500 mg by mouth daily, vitamin B12 1000 mcg by mouth daily, ferrous sulfate 325 mg by mouth daily, hydrocodone/acetaminophen 5/325 mg by mouth every 6 hours as needed for pain, lisinopril 10 mg by mouth daily, Zofran 8 mg by mouth every 6 hours as needed for nausea, oxybutynin 5 mg by mouth three times daily, pantoprazole 40 mg by mouth daily, tamsulosin 0.4 mg by mouth at bedtime daily, Tylenol Arthritis 2 tablets by mouth daily as needed for pain. ALLERGIES: NO KNOWN DRUG ALLERGIES. NO KNOWN FOOD ALLERGIES. NO KNOWN ALLERGIES TO LATEX. THERE IS A DOCUMENTED SENSITIVITY TO ADHESIVES. NO KNOWN ALLERGIES TO IODINE OR OTHER CONTRAST MATERIALS. PHYSICAL EXAMINATION: VITAL SIGNS: Height 70 inches. Weight 199 pounds, BMI 28.6 kg per meter squared. Blood pressure 127/83 mmHg, pulse 102 beats per minute, respiratory rate 21 breaths per minute. Oxygen saturation 100% on mechanical ventilation, FIO2 of 40%, PEEP of 5, respiratory rate 16, tidal volume 480. GENERAL: Patient is intubated, poorly responsive. HEENT: Normocephalic, atraumatic. Pupils are equal, round and reactive to light. Moist mucous membranes. NECK: Supple. No appreciable thyromegaly. No appreciable carotid bruits. CARDIOVASCULAR: S1 and S2, tachycardiac. No murmurs, rubs or gallops. RESPIRATORY: Clear to auscultation bilaterally. No wheezes, rhonchi or rales. Mechanically ventilated. EXTREMITIES: The skin is dry. Hands and feet are cool to the touch. There is no clubbing or cyanosis. There is 2+ edema over the hands. The posterior tibial and dorsalis pedis pulses are 1+ and symmetric. SKIN: No rashes or lesions. NEUROLOGIC: Memory/attention: The patient is intubated. He opens eyes briefly to verbal and physical stimulation. CRANIAL NERVES: Pupils are equal and round, react briskly to light (from 5 mm to 2 mm). The face appears symmetric. Corneal, oculocephalic and gag reflexes are intact. STRENGTH: Bulk is normal. The patient withdraws both hands and both feet from noxious stimulation. Tone is decreased throughout. DTRs: Deep tendon reflexes are 2+ and symmetric at the triceps, biceps, and brachioradialis. Deep tendon reflexes are 1+ and symmetric at the patellas and Achilles. Plantar responses are flexor bilaterally. SENSATION: As per motor exam. CEREBELLAR: Unable to assess as the patient is intubated and poorly responsive. GAIT: Deferred. SPEECH: Unable to assess as the patient is intubated. INVOLUNTARY MOVEMENTS: None. PRONATOR DRIFT: As per motor exam. LABORATORY DATA: Sodium 144, potassium 3.4, chloride 115, carbon dioxide 22, anion gap 10.4, BUN 34, creatinine 0.75 estimated GFR greater than 60. BUN to creatinine ratio is 45. Glucose 155, calcium 6.8. The CBC with differential and platelets reveals a white blood cell count of 8.93 with 72.1% neutrophils, 14.8% lymphocytes, 8.5% monocytes, 1.9% eosinophils and 0.7% basophils. The hemoglobin and hematocrit are 9.4 and 28.1, respectively. The platelet count is 87. An arterial blood gas reveals pH of 7.43, pCO2 of 33, pO2 of 96, bicarbonate of 22, oxygen saturation 98.0, base excess-2.0, FIO2 40. DIAGNOSTIC STUDIES: CT of the abdomen/pelvis 11/14/2017: 1. Previous distal gastrectomy and anastomosis. 2. Stomach and greater than 50% small bowel are descended and may represent ileus versus bowel obstruction. 3. Extensive pneumoperitoneum and trace of free fluid, likely perforation. 4. Small bilateral pleural effusions and likely aspiration/pneumonia in the lung bases. Chest x-ray of 11/14/2017: 1. Small bilateral pleural effusions and bibasilar atelectasis and/or pneumonia as previously seen on CT. 2. Right mid lung airspace opacity, likely pneumonia. 3. Pneumoperitoneum as seen on same date CT. Chest x-ray of 11/14/2017: 1. Endotracheal tube 6.5 cm above the basil. 2. Left IJ central line catheter with tip at the level of the distal left innominate vein (junction of the bilateral innominate veins.) 3. Findings suggestive of fluid overload and small pleural effusions. Chest x-ray of 11/15/2017: 1. Stable chest with evidence of edema and small left pleural effusion. 2. Tubes and lines are stable. 3. Chest x-ray 11/16/2017: Findings are compatible with fluid overload, bibasilar atelectasis/edema, and left pleural effusion. Chest x-ray 11/17/2017: Findings are compatible with worsening fluid overload, bibasilar atelectasis/edema, and left pleural effusion. CT of the brain without contrast 11/18/2017: On my review, there is no evidence of recent large territorial ischemia, hemorrhage, mass, or mass affect. There is mild diffuse cerebral atrophy, appropriate for age. Chest x-ray 11/18/2017: 1. Findings are compatible with improving pulmonary edema. 2. Left upper lobe confluent opacities suspicious for infection. Chest x-ray 11/19/2017: 1. Findings are compatible with improved pulmonary edema/fluid overload. 2. Previously noted left upper lobe airspace disease has resolved: Compatible with asymmetrical edema. 3. Tubes and lines are stable. ASSESSMENT AND PLAN: Mr. Morgan is a 72-year-old man with past medical history as detailed, admitted to the intensive care unit at [facility] status post exploratory laparotomy. The patient's neurological examination is detailed above. His laboratory data and other diagnostic studies have been reviewed and are documented above. Mr. Morgan remains minimally/poorly responsive despite discontinuing sedative/hypnotic and pain medications 48+ hours ago. The other physicians following the patient have some concern for hypoxic/anoxic ischemic brain injury or other intracranial pathology causing his poor responsiveness. However, the patient had a similar experience recovering from anesthesia/sedation several months ago. This suggests Mr. Morgan may be a hypo-metabolizer, indicating it may take a longer period of time for him to recover from anesthesia/sedation. At present, it is recommended the patient continue to be monitored clinically for improvement in his level of responsiveness. If there has not been significant improvement within the next 24 hours, a MRI of the brain without contrast and EEG will be ordered for further evaluation. Treatment of the remaining medical comorbidities will be deferred to the primary and other services following the patient. Thank you for this consultation. I will continue to follow this patient while he remains in the hospital. Time spent: 70 minutes. Job#: [id number] LAM
[2017-11-20] VITALS (39 sets, daily range): BP systolic 92–152; BP diastolic 68–103
[2017-11-20] MEDS: SODIUM CHLORIDE 0.9% 1000ML 1,000 ML IV SCH (01:06)
[2017-11-20] MEDS: ALBUTEROL/IPRATROPIUM 3 ML NEB NEB SCH ×4 (01:20→20:10)
[2017-11-20] MEDS: SODIUM CHLORIDE 0.9% 250ML IRRIG IR SCH ×6 (04:09→23:29)
[2017-11-20 04:57] LABS: BASOPHILS # (AUTO) 0.1 (0.0-0.1); BASOPHILS % 1.1 % (0.0-1.0); EOSINOPHILS # (AUTO) 0.1 (0.0-0.4); EOSINOPHILS % 1.8 % (0.0-6.0); HEMOGLOBIN 9.4 g/dL (14.0-18.0); LYMPHOCYTES # (AUTO) 1.3 (1.0-3.2); LYMPHOCYTES % 18.1 % (18.0-39.1); MEAN CORPUSCULAR HEMOGLOBIN 32.3 pg (28-32); MEAN CORPUSCULAR HGB CONC 32.4 g/dL (31-35); MEAN CORPUSCULAR VOLUME 99.7 fL (81-99); MONOCYTES # (AUTO) 0.9 (0.2-0.8); MONOCYTES % 12.7 % (4.4-11.3); NEUTROPHILS # (AUTO) 4.7 (2.1-6.9); NEUTROPHILS % 64.7 % (38.7-80.0); PLATELET COUNT 125 x10e3/uL (140-360); RED BLOOD COUNT 2.91 x10e6/uL (4.3-5.7); RED CELL DISTRIBUTION WIDTH 17.4 % (11.7-14.4)
[2017-11-20 05:15] LABS: ANION GAP 12.7 mmol/L (8-16); BLOOD UREA NITROGEN 30 mg/dL (7-26); BUN/CREATININE RATIO 39 (6-25); CARBON DIOXIDE 20 mmol/L (22-29); CHLORIDE 117 mmol/L (98-107); CREATININE, SERUM 0.76 mg/dL (0.72-1.25); EST GLOMERULAR FILTRATION RATE > 60 ML/MIN (60-); GLUCOSE 189 mg/dL (74-118); MAGNESIUM 1.7 MG/DL (1.3-2.1); POTASSIUM 3.7 mmol/L (3.5-5.1); SODIUM 146 mmol/L (136-145)
[2017-11-20] MEDS: INSULIN LISPRO 100 UNIT/1 ML 3ML VIAL SQ SCH ×4 (06:01→23:36)
[2017-11-20 07:12] LABS: BAND NEUTROPHILS % (MANUAL) 4 %; LYMPHOCYTES % (MANUAL) 21 % (19-48); METAMYELOCYTES % (MANUAL) 1 % (0-0); MONOCYTES % (MANUAL) 8 % (3.4-9.0); NEUTROPHILS % (MANUAL) 60 % (40-74)
[2017-11-20 07:13] LABS: ANISOCYTOSIS SLIGHT; HYPOCHROMASIA SLIG; PLATELET ESTIMATE SLIGHTLY DECREASED; PLATELET MORPHOLOGY COMMENT FEW LARGE; RBC MORPHOLOGY COMMENT NORMAL
[2017-11-20] MEDS: CALCIUM GLUCONATE 10% INJ 4.65 MEQ in SODIUM CHLORIDE 0.9% 50ML 100 ML IV SCH (08:46)
[2017-11-20] MEDS: EYE LUBRICANT OPTH OINT 3.5GM TUBE OP SCH ×2 (08:46→16:03)
[2017-11-20 09:05] LABS: ABG PCO2 35 mmHg (41-51); ABG PH 7.36 (7.31-7.41); ABG PO2 116 mmHg (80-105)
[2017-11-20 09:06] LABS: ABG HCO3 20 mmol/L (23-28)
[2017-11-20] MEDS: PANTOPRAZOLE 40 MG 10ML VIAL IV SCH (09:26)
[2017-11-20] MEDS: METRONIDAZOLE 500MG/NS 100ML 100 ML IV SCH ×3 (09:26→23:33)
--- NOTE | 2017-11-20 11:30 | Progress Note ---
DATE: Patient is seen and examined today. Patient appears same clinically, doing same. He is still on respiratory support. Following pulmonary and ID. CAT scan of abdomen and pelvis shows extensive pneumoperitoneum and trace free fluid and there is more bilateral pleural effusion. EXAMINATION GENERAL: Intubated through ET tube. HEENT: Normocephalic and atraumatic. Sclerae pink and conjunctivae clear. NECK: Supple. CHEST: Decreased breath sounds at the bases. ABDOMEN: Soft. EXTREMITIES: No edema. LABS AND IMAGING: Reviewed. ASSESSMENT AND PLAN 1. Patient with a history of stomach cancer, currently on adjuvant chemotherapy. Patient admitted with a small-bowel obstruction with perforation, is status post surgery. Patient was also on chemotherapy, received chemotherapy treatment. Patient had pancytopenia and anemia. Patient's current count improving and holding very well. No evidence of any active bleeding. Continue current hematological management. Given gastric cancer, recommendation outpatient restaging and further treatment as per goals of care. 2. Septic shock, infectious disease on the case. 3. Small-bowel obstruction with perforation, surgery on the case. We will continue the remaining care. Will follow the patient. Job#: [id number]
[2017-11-20] MEDS ORDERED: FUROSEMIDE INJ 10 MG/ML 4 ML VIAL IV ONE (13:45)
[2017-11-20] MEDS ORDERED: METOPROLOL TARTRATE INJ 1 MG/ML VIAL IV PRN (16:00)
[2017-11-20] MEDS ORDERED: METOPROLOL TARTRATE INJ 1 MG/ML VIAL ONE (16:00)
[2017-11-20] MEDS ORDERED: AMIKACIN SULFATE 250 MG/ML 2ML VIAL IV ONE (19:30)
[2017-11-20] MEDS ORDERED: AMIKACIN SULFATE 700 MG in SODIUM CHLORIDE 0.9% 100 ML IV ONE (19:45)
--- NOTE | 2017-11-20 20:31 | Diagnostic Imaging Report ---
History: Altered mental status. Comparison studies: CT brain from 11/18/2017. Technique: Sagittal T2; axial DWI, FLAIR, GRE, T2, T1, Coronal FLAIR. Intravenous contrast: None Findings: Suboptimal evaluation due to motion artifacts. Scalp: Normal in signal . Incidental left frontal scalp lipoma. Approximately measures 1.7 x 0.6 cm . Bone marrow: Normal in signal intensity. Brain sulci: Mildly prominent.. Ventricles: Normal in size . No hydrocephalus . Parenchyma: Suboptimal evaluation due to motion artifact, despite the limitation no acute vascular insult, mass or acute intracranial hemorrhage. Suprasellar region: No abnormalities. Craniocervical junction: Patent foramen magnum. No Chiari malformation . Vessels: Normal flow-voids in the arteries and sinuses. Incidental finding: T2 hyperintense moderate amount of fluid in bilateral mastoid air cells. T2 hyperintense near-complete opacification of right maxillary and sphenoid sinus. Moderate T2 hyperintense mucosa in right ethmoid sinus. IMPRESSION: 1. Suboptimal evaluation due to motion artifacts, despite the limitation no gross acute intracranial abnormality. 2. Mild generalized cerebral volume loss. Signed by: Dr. Britt Covarrubias M.D. on 11/20/2017 8:27 PM
[2017-11-20] MEDS: CENTRAL TPN FORMULA 1 BAG IV SCH (20:36)
[2017-11-20] MEDS: MICAFUNGIN SODIUM 100 ML IV SCH (21:06)
[2017-11-21] VITALS (47 sets, daily range): BP systolic 114–152; BP diastolic 67–118
[2017-11-21] MEDS: ALBUTEROL/IPRATROPIUM 3 ML NEB NEB SCH ×4 (01:02→19:20)
[2017-11-21] MEDS: SODIUM CHLORIDE 0.9% 250ML IRRIG IR SCH ×6 (03:32→23:45)
[2017-11-21] MEDS: INSULIN LISPRO 100 UNIT/1 ML 3ML VIAL SQ SCH ×4 (05:46→23:54)
[2017-11-21] MEDS: METRONIDAZOLE 500MG/NS 100ML 100 ML IV SCH ×2 (08:00→15:42)
[2017-11-21] MEDS: PANTOPRAZOLE 40 MG 10ML VIAL IV SCH (08:00)
[2017-11-21] MEDS: EYE LUBRICANT OPTH OINT 3.5GM TUBE OP SCH ×2 (09:00→16:25)
[2017-11-21 09:06] LABS: BASOPHILS # (AUTO) 0.1 (0.0-0.1); BASOPHILS % 1.2 % (0.0-1.0); EOSINOPHILS # (AUTO) 0.1 (0.0-0.4); EOSINOPHILS % 1.5 % (0.0-6.0); HEMOGLOBIN 10.6 g/dL (14.0-18.0); LYMPHOCYTES # (AUTO) 1.5 (1.0-3.2); LYMPHOCYTES % 22.9 % (18.0-39.1); MEAN CORPUSCULAR HEMOGLOBIN 32.4 pg (28-32); MEAN CORPUSCULAR HGB CONC 32.1 g/dL (31-35); MEAN CORPUSCULAR VOLUME 100.9 fL (81-99); MONOCYTES # (AUTO) 0.8 (0.2-0.8); MONOCYTES % 12.4 % (4.4-11.3); NEUTROPHILS # (AUTO) 3.9 (2.1-6.9); NEUTROPHILS % 60.3 % (38.7-80.0); PLATELET COUNT 191 x10e3/uL (140-360); RED BLOOD COUNT 3.27 x10e6/uL (4.3-5.7); RED CELL DISTRIBUTION WIDTH 17.3 % (11.7-14.4)
[2017-11-21 09:19] LABS: BLOOD UREA NITROGEN 30 mg/dL (7-26); BUN/CREATININE RATIO 36 (6-25); CALCIUM 7.5 mg/dL (8.4-10.2); CARBON DIOXIDE 24 mmol/L (22-29); CHLORIDE 116 mmol/L (98-107); CREATININE, SERUM 0.83 mg/dL (0.72-1.25); EST GLOMERULAR FILTRATION RATE > 60 ML/MIN (60-); GLUCOSE 167 mg/dL (74-118); SODIUM 148 mmol/L (136-145)
[2017-11-21 10:18] LABS: EOSINOPHILS % (MANUAL) 2 % (0-7); LYMPHOCYTES % (MANUAL) 16 % (19-48); METAMYELOCYTES % (MANUAL) 1 % (0-0); MONOCYTES % (MANUAL) 12 % (3.4-9.0); NEUTROPHILS % (MANUAL) 63 % (40-74)
[2017-11-21 10:21] LABS: PLATELET ESTIMATE ADEQUATE; PLATELET MORPHOLOGY COMMENT FEW LARGE
[2017-11-21 10:22] LABS: ANISOCYTOSIS SLIGHT; RBC MORPHOLOGY COMMENT NORMAL
--- NOTE | 2017-11-21 11:30 | Diagnostic Imaging Report ---
PROCEDURE: A single AP view of the chest. COMPARISON: Patients [facility], DX, CHEST SINGLE (PORTABLE), 11/19/2017, 5:36. INDICATIONS: INTUBATION FINDINGS: Lines/tubes: ET tube with distal tip approximately 6.0 cm proximal to the basil, unchanged. NG/orogastric tube with the distal tip projected on the expected location of the gastric cardia. Right chest Port-A-Cath with distal tip projected on the cavoatrial junction, unchanged. Lungs: Mild patchy airspace disease, left greater than right somewhat increased since the prior examination may represent edema or infection in the proper clinical setting. Pleura: Bilateral small pleural effusions. here is no pneumothorax. Heart and mediastinum: The heart and the mediastinum are unremarkable. Bones: No acute bony abnormality. IMPRESSION: 1. Stable supporting tubes and line. 2. Mild patchy airspace disease, left greater than right somewhat increased since the prior examination may represent edema or infection in the proper clinical setting. Shelley Hodge M.D. Dictated by: Shelley Hodge M.D. on 11/21/2017 at 11:35 Electronically approved by: Shelley Hodge M.D. on 11/21/2017 at 11:35
--- NOTE | 2017-11-21 11:34 | Diagnostic Imaging Report ---
PROCEDURE:X-RAY ABDOMEN - KUB COMPARISON:Patients [facility], DX, ABDOMEN COMP INCL UPR OR DECUB, 04/13/2017, 8:00. [facility], CT, CT ABDOMEN/PELVIS WO, 11/14/2017, 16:20. INDICATIONS:NG TUBE PLACEMENT FINDINGS: NG tube with the distal tip projected in the expected location of the gastric cardia. There are multiple mildly dilated small bowel loops are suggestive of ileus versus obstruction. There is no evidence of free air. No acute osseous abnormalities are present. CONCLUSION: 1. NG tube with the distal tip projected in the expected location of the gastric cardia. 2. Mild small bowel ileus versus obstruction. Shelley Hodge M.D. Dictated by: Shelley Hodge M.D. on 11/21/2017 at 11:39 Electronically approved by: Shelley Hodge M.D. on 11/21/2017 at 11:39
[2017-11-21] MEDS: CALCIUM GLUCONATE 10% INJ 4.65 MEQ in SODIUM CHLORIDE 0.9% 50ML 100 ML IV SCH (12:07)
--- NOTE | 2017-11-21 14:10 | Progress Note ---
DATE: November 21, 2017 The patient was seen and examined today. The patient is still intubated. The patient's current count is stable. No evidence of any bleeding. PHYSICAL EXAMINATION GENERAL: Intubated and sedated. HEENT: Normocephalic and atraumatic. Sclerae pink. Conjunctivae clear. NECK: Supple. CHEST: Decreased breath sounds at the bases. ABDOMEN: Soft. EXTREMITIES: No edema. LABS AND IMAGING: Reviewed. ASSESSMENT AND PLAN: The patient with a history of esophageal cancer admitted with small intestinal obstruction and perforation. The patient had pancytopenia on admission. The patient was on chemo for gastric cancer. Current hemoglobin, platelets and white cell count improved. Will check CBC today. Do not recommend any hematological or oncology intervention currently. Will monitor the patient closely. Job#: [id number] XOCHITL
[2017-11-21 14:11] LABS: ABG HCO3 21 mmol/L (23-28); ABG PCO2 33 mmHg (41-51); ABG PH 7.41 (7.31-7.41); ABG PO2 147 mmHg (80-105)
[2017-11-21] MEDS ORDERED: AMIKACIN SULFATE 250 MG/ML 2ML VIAL IV ONE (14:30)
[2017-11-21] MEDS ORDERED: FUROSEMIDE INJ 10 MG/ML 4 ML VIAL IV ONE (14:45)
[2017-11-21] MEDS ORDERED: AMIKACIN SULFATE 700 MG in SODIUM CHLORIDE 0.9% 100 ML IV ONE ×2 (15:00→20:00)
[2017-11-21] MEDS: MICAFUNGIN SODIUM 100 ML IV SCH (19:45)
[2017-11-21] MEDS: CENTRAL TPN FORMULA 1 BAG IV SCH (20:31)
[2017-11-22] VITALS (40 sets, daily range): BP systolic 111–161; BP diastolic 64–87
[2017-11-22] MEDS: ALBUTEROL/IPRATROPIUM 3 ML NEB NEB SCH ×4 (02:50→19:20)
[2017-11-22] MEDS: SODIUM CHLORIDE 0.9% 250ML IRRIG IR SCH ×6 (03:30→23:51)
[2017-11-22 05:04] LABS: BASOPHILS # (AUTO) 0.1 (0.0-0.1); BASOPHILS % 0.9 % (0.0-1.0); EOSINOPHILS # (AUTO) 0.1 (0.0-0.4); EOSINOPHILS % 1.1 % (0.0-6.0); HEMATOCRIT 28.5 % (38.2-49.6); HEMOGLOBIN 9.2 g/dL (14.0-18.0); LYMPHOCYTES # (AUTO) 1.2 (1.0-3.2); LYMPHOCYTES % 20.8 % (18.0-39.1); MEAN CORPUSCULAR HEMOGLOBIN 32.4 pg (28-32); MEAN CORPUSCULAR HGB CONC 32.3 g/dL (31-35); MEAN CORPUSCULAR VOLUME 100.4 fL (81-99); MONOCYTES # (AUTO) 0.6 (0.2-0.8); MONOCYTES % 10.6 % (4.4-11.3); NEUTROPHILS # (AUTO) 3.7 (2.1-6.9); NEUTROPHILS % 65.3 % (38.7-80.0); PLATELET COUNT 211 x10e3/uL (140-360); RED BLOOD COUNT 2.84 x10e6/uL (4.3-5.7); RED CELL DISTRIBUTION WIDTH 17.1 % (11.7-14.4)
[2017-11-22] MEDS: INSULIN LISPRO 100 UNIT/1 ML 3ML VIAL SQ SCH ×3 (05:40→18:00)
[2017-11-22 05:43] LABS: ANION GAP 13.6 mmol/L (8-16); BLOOD UREA NITROGEN 27 mg/dL (7-26); BUN/CREATININE RATIO 34 (6-25); CALCIUM 7.3 mg/dL (8.4-10.2); CARBON DIOXIDE 22 mmol/L (22-29); CHLORIDE 116 mmol/L (98-107); EST GLOMERULAR FILTRATION RATE > 60 ML/MIN (60-); GLUCOSE 226 mg/dL (74-118); POTASSIUM 3.6 mmol/L (3.5-5.1); SODIUM 148 mmol/L (136-145)
--- NOTE | 2017-11-22 06:05 | Diagnostic Imaging Report ---
EXAM: CHEST SINGLE (PORTABLE), AP 1 view INDICATION: Pulmonary edema COMPARISON: AP view of the chest November 21, 2017 FINDINGS: LINES/TUBES: Stable right internal jugular vein chest port and left internal jugular vein central line. Tip of nasal/orogastric tube terminates in expected location of the body of the stomach. LUNGS: Persistent bilateral irregular airspace opacities. Left retrocardiac opacification. PLEURA: Suspected small layering pleural effusions bilaterally. HEART AND MEDIASTINUM: The heart is within normal size limits. Stable widening of the upper mediastinum. BONES AND SOFT TISSUES: No acute findings. IMPRESSION: Persistent bilateral irregular airspace opacities. This could represent multifocal pneumonia or pulmonary nodules. Signed by: Dr. Nancy Valderrama M.D. on 11/22/2017 6:02 AM
[2017-11-22 06:51] LABS: BAND NEUTROPHILS % (MANUAL) 1 %; EOSINOPHILS % (MANUAL) 3 % (0-7); LYMPHOCYTES % (MANUAL) 12 % (19-48); MONOCYTES % (MANUAL) 8 % (3.4-9.0); NEUTROPHILS % (MANUAL) 74 % (40-74); PLATELET ESTIMATE ADEQUATE; PLATELET MORPHOLOGY COMMENT NORMAL; RBC MORPHOLOGY COMMENT NORMAL
[2017-11-22 06:52] LABS: ANISOCYTOSIS SLIGHT
[2017-11-22] MEDS ORDERED: INSULIN DETEMIR 100 UNIT/ML PEN SQ SCH (10:00)
[2017-11-22] MEDS: PANTOPRAZOLE 40 MG 10ML VIAL IV SCH (11:25)
[2017-11-22] MEDS: EYE LUBRICANT OPTH OINT 3.5GM TUBE OP SCH ×2 (11:25→18:01)
[2017-11-22] MEDS: CALCIUM GLUCONATE 10% INJ 4.65 MEQ in SODIUM CHLORIDE 0.9% 50ML 100 ML IV SCH (11:54)
--- NOTE | 2017-11-22 16:06 | Progress Note ---
DATE: Patient was seen and examined today. Patient appeared comfortable. Extubated yesterday, doing well. PHYSICAL EXAMINATION GENERAL: Alert, awake, communicative. HEENT: Normocephalic, atraumatic. Sclerae pink. Conjunctiva clear. NECK: Supple. CHEST: Decreased breath sounds at the bases . CARDIOVASCULAR: Regular rate and rhythm. ABDOMEN: Soft. EXTREMITIES: No edema. LABS AND IMAGING: Reviewed. ASSESSMENT AND PLAN: The patient with a history of gastric cancer, status post surgery, currently on adjuvant treatment. Admitted with pancytopenia, respiratory failure. Patient currently is stable, clinically doing better. At this point continue current hematological intervention. Do not recommend any other further recommendation. Continue gastric cancer treatment as an outpatient. Will follow patient. Job#: [id number] BEE
--- NOTE | 2017-11-22 16:37 | Discharge Summary ---
NO DICTATION, LENGTH 10 SECONDS. SEEMA PAGAN MD Job#: [id number]
[2017-11-22] MEDS: DEXTROSE 5% 1,000 ML IV SCH (18:25)
[2017-11-22] MEDS ORDERED: ACETAMINOPHEN 1000 MG/100 ML IV PRN (20:00)
[2017-11-22] MEDS ORDERED: DEXTROSE 10% 1,000 ML IV PRN (20:30)
[2017-11-22] MEDS: CENTRAL TPN FORMULA 1 BAG IV SCH (20:36)
[2017-11-22] MEDS: LEVOFLOXACIN 500MG/D5W 100ML 100 ML IV SCH (22:09)
[2017-11-23] VITALS (37 sets, daily range): BP systolic 109–156; BP diastolic 65–94
[2017-11-23] MEDS: INSULIN LISPRO 100 UNIT/1 ML 3ML VIAL SQ SCH ×5 (00:30→23:27)
[2017-11-23] MEDS: ALBUTEROL/IPRATROPIUM 3 ML NEB NEB SCH ×4 (02:10→19:30)
[2017-11-23] MEDS: SODIUM CHLORIDE 0.9% 250ML IRRIG IR SCH ×6 (03:30→22:47)
[2017-11-23] MEDS: DEXTROSE 5% 1,000 ML IV SCH (05:30)
--- NOTE | 2017-11-23 08:50 | Progress Note ---
DATE: November 23, 2017 The patient was seen and examined today. The patient appears comfortable. More communicative, talkative and oriented. PHYSICAL EXAMINATION GENERAL: Alert and awake. HEENT: Normocephalic and atraumatic. Sclerae pink. Conjunctivae clear. NECK: Supple. JVD is not raised. CARDIOVASCULAR: Regular rate and rhythm. ABDOMEN: Soft. EXTREMITIES: One plus edema. LABS AND IMAGING: Reviewed. ASSESSMENT AND PLAN: The patient with a history of gastric cancer, status post surgery. Received adjuvant chemo. Admitted with intestinal obstruction, status post perforation requiring surgical intervention. The patient also had pancytopenia and he may require supportive care. Clinical picture is improving. Continue current hematologic intervention. Do not recommend any further care. Will discharge today. Will follow the patient closely. Job#: [id number] XOCHTIL
[2017-11-23] MEDS: EYE LUBRICANT OPTH OINT 3.5GM TUBE OP SCH (09:00)
[2017-11-23 09:02] LABS: BASOPHILS # (AUTO) 0.1 (0.0-0.1); EOSINOPHILS # (AUTO) 0.1 (0.0-0.4); HEMATOCRIT 28.2 % (38.2-49.6); HEMOGLOBIN 9.2 g/dL (14.0-18.0); LYMPHOCYTES % 16.4 % (18.0-39.1); MEAN CORPUSCULAR HEMOGLOBIN 32.4 pg (28-32); MEAN CORPUSCULAR HGB CONC 32.6 g/dL (31-35); MEAN CORPUSCULAR VOLUME 99.3 fL (81-99); MONOCYTES # (AUTO) 0.6 (0.2-0.8); MONOCYTES % 9.5 % (4.4-11.3); NEUTROPHILS # (AUTO) 4.3 (2.1-6.9); NEUTROPHILS % 70.1 % (38.7-80.0); PLATELET COUNT 229 x10e3/uL (140-360); RED BLOOD COUNT 2.84 x10e6/uL (4.3-5.7); RED CELL DISTRIBUTION WIDTH 17.1 % (11.7-14.4)
[2017-11-23] MEDS: METOPROLOL TARTRATE INJ 1 MG/ML VIAL IV SCH ×4 (09:05→23:28)
[2017-11-23] MEDS: CALCIUM GLUCONATE 10% INJ 4.65 MEQ in SODIUM CHLORIDE 0.9% 50ML 100 ML IV SCH (09:10)
[2017-11-23] MEDS: PANTOPRAZOLE 40 MG 10ML VIAL IV SCH (09:10)
[2017-11-23 09:20] LABS: ALBUMIN 1.3 g/dL (3.5-5.0); ALBUMIN/GLOBULIN RATIO 0.4 (0.8-2.0); ALKALINE PHOSPHATASE 51 IU/L (40-150); ANION GAP 10.4 mmol/L (8-16); BLOOD UREA NITROGEN 25 mg/dL (7-26); BUN/CREATININE RATIO 36 (6-25); CALCIUM 7.5 mg/dL (8.4-10.2); CARBON DIOXIDE 23 mmol/L (22-29); CHLORIDE 116 mmol/L (98-107); EST GLOMERULAR FILTRATION RATE > 60 ML/MIN (60-); GLUCOSE 160 mg/dL (74-118); MAGNESIUM 1.6 MG/DL (1.3-2.1); PHOSPHORUS 3.3 MG/DL (2.3-4.7); POTASSIUM 3.4 mmol/L (3.5-5.1); SODIUM 146 mmol/L (136-145)
[2017-11-23 09:21] LABS: ALANINE AMINOTRANSFERASE < 6 IU/L (0-55)
[2017-11-23] MEDS: POTASSIUM CHLORIDE 20MEQ/100ML 100 ML IV PRN (10:35)
--- NOTE | 2017-11-23 13:10 | Diagnostic Imaging Report ---
PROCEDURE:X-RAY ABDOMEN - KUB COMPARISON:None. INDICATIONS:EVALUATE FOR ILEUS FINDINGS: One view of the abdomen (AP supine portable). NG tube has its tip projected over the gastric body. There is persistent mild small bowel dilatation, stable or slightly improved. Moderate amount stool seen in the right side of the colon. Surgical sutures in the right hemiabdomen and prior bowel surgery. No evidence of pneumoperitoneum.. No definite calcifications are seen overlying the urinary system. Five non-rib bearing lumbar type vertebral bodies identified. CONCLUSION: Mild small bowel dilatation, suggesting ileus or low-grade obstruction, stable or slightly improved. Dictated by: Chris Sanz M.D. on 11/23/2017 at 13:15 Electronically approved by: Chris Sanz M.D. on 11/23/2017 at 13:15
[2017-11-23] MEDS ORDERED: CENTRAL TPN FORMULA 1 BAG IV SCH (20:00)
[2017-11-23] MEDS: LEVOFLOXACIN 500MG/D5W 100ML 100 ML IV SCH (20:09)
[2017-11-24] VITALS (40 sets, daily range): BP systolic 117–167; BP diastolic 57–91
[2017-11-24] MEDS: ALBUTEROL/IPRATROPIUM 3 ML NEB NEB SCH ×4 (01:00→19:25)
[2017-11-24] MEDS: DEXTROSE 5% 1,000 ML IV SCH ×2 (01:30→20:59)
[2017-11-24] MEDS: SODIUM CHLORIDE 0.9% 250ML IRRIG IR SCH ×6 (03:42→23:23)
[2017-11-24] MEDS: METOPROLOL TARTRATE INJ 1 MG/ML VIAL IV SCH ×3 (05:19→17:30)
[2017-11-24] MEDS: INSULIN LISPRO 100 UNIT/1 ML 3ML VIAL SQ SCH ×3 (05:29→18:00)
[2017-11-24 07:16] LABS: BASOPHILS # (AUTO) 0.1 (0.0-0.1); BASOPHILS % 0.9 % (0.0-1.0); EOSINOPHILS # (AUTO) 0.1 (0.0-0.4); EOSINOPHILS % 1.9 % (0.0-6.0); HEMATOCRIT 25.8 % (38.2-49.6); HEMOGLOBIN 8.3 g/dL (14.0-18.0); LYMPHOCYTES % 13.1 % (18.0-39.1); MEAN CORPUSCULAR HEMOGLOBIN 32.4 pg (28-32); MEAN CORPUSCULAR HGB CONC 32.2 g/dL (31-35); MEAN CORPUSCULAR VOLUME 100.8 fL (81-99); MONOCYTES # (AUTO) 0.7 (0.2-0.8); MONOCYTES % 9.1 % (4.4-11.3); NEUTROPHILS # (AUTO) 5.5 (2.1-6.9); NEUTROPHILS % 73.7 % (38.7-80.0); PLATELET COUNT 237 x10e3/uL (140-360); RED BLOOD COUNT 2.56 x10e6/uL (4.3-5.7); RED CELL DISTRIBUTION WIDTH 17.1 % (11.7-14.4)
[2017-11-24 07:34] LABS: ANION GAP 11.1 mmol/L (8-16); BLOOD UREA NITROGEN 23 mg/dL (7-26); BUN/CREATININE RATIO 31 (6-25); CALCIUM 7.1 mg/dL (8.4-10.2); CARBON DIOXIDE 20 mmol/L (22-29); CHLORIDE 117 mmol/L (98-107); CREATININE, SERUM 0.75 mg/dL (0.72-1.25); EST GLOMERULAR FILTRATION RATE > 60 ML/MIN (60-); GLUCOSE 396 mg/dL (74-118); MAGNESIUM 1.8 MG/DL (1.3-2.1); POTASSIUM 4.1 mmol/L (3.5-5.1); SODIUM 144 mmol/L (136-145)
[2017-11-24] MEDS: PANTOPRAZOLE 40 MG 10ML VIAL IV SCH (08:20)
[2017-11-24] MEDS: INSULIN DETEMIR 100 UNIT/ML PEN SQ SCH (08:20)
[2017-11-24] MEDS: CALCIUM GLUCONATE 10% INJ 4.65 MEQ in SODIUM CHLORIDE 0.9% 50ML 100 ML IV SCH (08:20)
--- NOTE | 2017-11-24 08:58 | Progress Note ---
DATE: November 24, 2017 SUBJECTIVE: Patient seen and examined today. Patient appeared comfortable. Had worsening anemia, hemoglobin dropped to 8.3. No active GI bleed noted. Platelet count improved, normal. White cell count normal. PHYSICAL EXAMINATION: GENERAL: Alert, awake, appears lethargic. HEENT: Normocephalic, atraumatic. Sclerae pink. Conjunctivae clear. NECK: Supple. CHEST: Decreased breath sounds on bases. CARDIOVASCULAR: Regular rate and rhythm. EXTREMITIES: No edema. LABS AND IMAGING: Reviewed. ASSESSMENT AND PLAN: Patient with history of multiple medical conditions, include gastric cancer, status post surgery, admitted with intestinal obstruction and status post surgery. Had perforation. 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 Patient currently in postop care. His clinical condition is improving. Hemoglobin is low. White cell and platelet counts are normal. RECOMMENDATION: To continue current care. Try to avoid frequent blood drawn. Avoid thrombocytopenic medication. Blood transfusion if hemoglobin drops below 7.5. Will continue remaining care. Will follow patient closely. Job#: [id number]
[2017-11-24] MEDS ORDERED: CENTRAL TPN FORMULA 1 BAG IV SCH ×2 (14:27→20:00)
[2017-11-24] MEDS ORDERED: ALBUMIN 25% 25GM 0.25 GM/ML BTL IV NR (15:45)
[2017-11-24] MEDS ORDERED: FUROSEMIDE INJ 10 MG/ML 4 ML VIAL IV NR (15:45)
[2017-11-24] MEDS: SODIUM CHLORIDE 0.9% 1000ML 1,000 ML IV SCH (17:26)
[2017-11-24] MEDS: MICAFUNGIN SODIUM 100 ML IV SCH (17:26)
[2017-11-24] MEDS: IPRATROPIUM BROMIDE 0.02% 2.5 ML NEB NEB PRN (19:25)
[2017-11-24] MEDS: LEVOFLOXACIN 500MG/D5W 100ML 100 ML IV SCH (20:07)
[2017-11-24] MEDS: EYE LUBRICANT OPTH OINT 3.5GM TUBE OP PRN (20:08)
[2017-11-25] VITALS (38 sets, daily range): BP systolic 106–162; BP diastolic 54–93
[2017-11-25] MEDS: METOPROLOL TARTRATE INJ 1 MG/ML VIAL IV SCH ×5 (01:00→23:33)
[2017-11-25] MEDS: IPRATROPIUM BROMIDE 0.02% 2.5 ML NEB NEB PRN ×2 (01:30→19:15)
[2017-11-25] MEDS: ALBUTEROL/IPRATROPIUM 3 ML NEB NEB SCH ×4 (01:30→19:15)
[2017-11-25] MEDS: SODIUM CHLORIDE 0.9% 250ML IRRIG IR SCH ×6 (03:05→23:08)
[2017-11-25 05:22] LABS: ANION GAP 14.3 mmol/L (8-16); BLOOD UREA NITROGEN 25 mg/dL (7-26); BUN/CREATININE RATIO 34 (6-25); CALCIUM 7.1 mg/dL (8.4-10.2); CARBON DIOXIDE 19 mmol/L (22-29); CHLORIDE 117 mmol/L (98-107); CREATININE, SERUM 0.73 mg/dL (0.72-1.25); EST GLOMERULAR FILTRATION RATE > 60 ML/MIN (60-); GLUCOSE 185 mg/dL (74-118); MAGNESIUM 1.8 MG/DL (1.3-2.1); POTASSIUM 4.3 mmol/L (3.5-5.1); SODIUM 146 mmol/L (136-145)
[2017-11-25 06:12] LABS: BASOPHILS # (AUTO) 0.1 (0.0-0.1); BASOPHILS % 0.9 % (0.0-1.0); EOSINOPHILS # (AUTO) 0.1 (0.0-0.4); EOSINOPHILS % 0.6 % (0.0-6.0); HEMATOCRIT 26.4 % (38.2-49.6); HEMOGLOBIN 8.4 g/dL (14.0-18.0); LYMPHOCYTES % 11.4 % (18.0-39.1); MEAN CORPUSCULAR HEMOGLOBIN 31.9 pg (28-32); MEAN CORPUSCULAR HGB CONC 31.8 g/dL (31-35); MEAN CORPUSCULAR VOLUME 100.4 fL (81-99); MONOCYTES # (AUTO) 0.8 (0.2-0.8); MONOCYTES % 8.5 % (4.4-11.3); NEUTROPHILS # (AUTO) 6.9 (2.1-6.9); NEUTROPHILS % 77.4 % (38.7-80.0); PLATELET COUNT 283 x10e3/uL (140-360); RED BLOOD COUNT 2.63 x10e6/uL (4.3-5.7); RED CELL DISTRIBUTION WIDTH 17.1 % (11.7-14.4)
[2017-11-25] MEDS: INSULIN LISPRO 100 UNIT/1 ML 3ML VIAL SQ SCH ×4 (06:35→18:00)
[2017-11-25 08:09] LABS: LYMPHOCYTES % (MANUAL) 14 % (19-48)
[2017-11-25 08:10] LABS: BAND NEUTROPHILS % (MANUAL) 2 %; MONOCYTES % (MANUAL) 8 % (3.4-9.0); NEUTROPHILS % (MANUAL) 76 % (40-74); PLATELET ESTIMATE ADEQUATE; PLATELET MORPHOLOGY COMMENT NORMAL; RBC MORPHOLOGY COMMENT NORMAL
[2017-11-25] MEDS ORDERED: MICAFUNGIN SODIUM 50 MG/50 ML BAG IV SCH (09:00)
[2017-11-25] MEDS: CALCIUM GLUCONATE 10% INJ 4.65 MEQ in SODIUM CHLORIDE 0.9% 50ML 100 ML IV SCH (09:03)
[2017-11-25] MEDS: PANTOPRAZOLE 40 MG 10ML VIAL IV SCH (09:03)
[2017-11-25] MEDS: INSULIN DETEMIR 100 UNIT/ML PEN SQ SCH (09:04)
--- NOTE | 2017-11-25 09:06 | Progress Note ---
DATE: November 25, 2017 SUBJECTIVE: Patient seen and examined today. Patient appeared comfortable. No worsening event noted. Clinical condition is improving. No evidence of any bleeding noted. PHYSICAL EXAMINATION: GENERAL: Alert, awake, lethargic. HEENT: Normocephalic, atraumatic. Sclerae pale. Conjunctivae clear. NECK: Supple. CHEST: Decreased breath sounds on bases. ABDOMEN: Soft. EXTREMITIES: No edema. LABS AND IMAGING: Reviewed. ASSESSMENT AND PLAN: Patient with history of multiple medical conditions, admitted with intestinal obstruction and perforation. Patient has also history of gastric cancer, status post surgery, and adjuvant chemo. Patient clinically doing better. Blood count is stable. At current, continue current care. Do not recommend any hematological intervention. Will follow patient closely. Job#: [id number]
[2017-11-25] MEDS: SODIUM CHLORIDE 0.9% 1000ML 1,000 ML IV SCH (12:30)
[2017-11-25] MEDS: FUROSEMIDE INJ 10 MG/ML 2 ML VIAL IV NR ×2 (17:13→17:21)
[2017-11-25] MEDS ORDERED: MAGNESIUM SULF 1GRAM/DEXTROSE 100 ML IV ONE (17:15)
[2017-11-25] MEDS: DEXTROSE 5% 1,000 ML IV SCH (17:37)
[2017-11-25] MEDS: MICAFUNGIN SODIUM 100 ML IV SCH (18:00)
[2017-11-25] MEDS ORDERED: CENTRAL TPN FORMULA 1 BAG IV SCH (20:00)
[2017-11-25] MEDS: LEVOFLOXACIN 500MG/D5W 100ML 100 ML IV SCH (20:02)
[2017-11-26] VITALS (22 sets, daily range): BP systolic 98–148; BP diastolic 54–85
[2017-11-26] MEDS: INSULIN LISPRO 100 UNIT/1 ML 3ML VIAL SQ SCH ×5 (00:15→23:57)
[2017-11-26] MEDS: IPRATROPIUM BROMIDE 0.02% 2.5 ML NEB NEB PRN (02:00)
[2017-11-26] MEDS: ALBUTEROL/IPRATROPIUM 3 ML NEB NEB SCH ×4 (02:00→19:23)
[2017-11-26] MEDS: SODIUM CHLORIDE 0.9% 250ML IRRIG IR SCH ×6 (03:30→23:57)
[2017-11-26 05:30] LABS: BASOPHILS # (AUTO) 0.1 (0.0-0.1); BASOPHILS % 0.6 % (0.0-1.0); EOSINOPHILS # (AUTO) 0.1 (0.0-0.4); EOSINOPHILS % 0.7 % (0.0-6.0); HEMATOCRIT 26.3 % (38.2-49.6); HEMOGLOBIN 8.5 g/dL (14.0-18.0); LYMPHOCYTES # (AUTO) 1.5 (1.0-3.2); LYMPHOCYTES % 12.1 % (18.0-39.1); MEAN CORPUSCULAR HEMOGLOBIN 32.3 pg (28-32); MEAN CORPUSCULAR HGB CONC 32.3 g/dL (31-35); MONOCYTES # (AUTO) 1.2 (0.2-0.8); MONOCYTES % 10.3 % (4.4-11.3); NEUTROPHILS % 74.7 % (38.7-80.0); PLATELET COUNT 319 x10e3/uL (140-360); RED BLOOD COUNT 2.63 x10e6/uL (4.3-5.7)
[2017-11-26] MEDS: METOPROLOL TARTRATE INJ 1 MG/ML VIAL IV SCH ×3 (05:30→18:25)
[2017-11-26 05:57] LABS: ALANINE AMINOTRANSFERASE 6 IU/L (0-55); ALBUMIN 1.5 g/dL (3.5-5.0); ALBUMIN/GLOBULIN RATIO 0.4 (0.8-2.0); ALKALINE PHOSPHATASE 75 IU/L (40-150); ANION GAP 13.2 mmol/L (8-16); BLOOD UREA NITROGEN 24 mg/dL (7-26); BUN/CREATININE RATIO 31 (6-25); CALCIUM 7.5 mg/dL (8.4-10.2); CARBON DIOXIDE 22 mmol/L (22-29); CHLORIDE 113 mmol/L (98-107); CREATININE, SERUM 0.78 mg/dL (0.72-1.25); EST GLOMERULAR FILTRATION RATE > 60 ML/MIN (60-); GLUCOSE 205 mg/dL (74-118); PHOSPHORUS 3.2 MG/DL (2.3-4.7); POTASSIUM 4.2 mmol/L (3.5-5.1); SODIUM 144 mmol/L (136-145)
[2017-11-26 06:09] LABS: ANISOCYTOSIS MODERATE; LYMPHOCYTES % (MANUAL) 11 % (19-48); MONOCYTES % (MANUAL) 7 % (3.4-9.0); NEUTROPHILS % (MANUAL) 82 % (40-74); PLATELET ESTIMATE ADEQUATE; PLATELET MORPHOLOGY COMMENT NORMAL; RBC MORPHOLOGY COMMENT ABNORMAL
[2017-11-26] MEDS: PANTOPRAZOLE 40 MG 10ML VIAL IV SCH (09:44)
[2017-11-26] MEDS: CALCIUM GLUCONATE 10% INJ 4.65 MEQ in SODIUM CHLORIDE 0.9% 50ML 100 ML IV SCH (09:44)
[2017-11-26] MEDS: INSULIN DETEMIR 100 UNIT/ML PEN SQ SCH (09:45)
[2017-11-26] MEDS: ONDANSETRON HCL INJ 2 MG/ML VIAL IV PRN (10:06)
--- NOTE | 2017-11-26 12:05 | Progress Note ---
DATE: SUBJECTIVE: Patient seen and examined today. Patient appeared lethargic, fatigued, tired, waiting for barium swallow. No worsening event noted. PHYSICAL EXAMINATION GENERAL: Alert, awake, communicative. HEENT: Normocephalic, atraumatic. Sclerae pale. Conjunctivae clear. NECK: Supple. CHEST: Decreased breath sounds at the bases. CARDIOVASCULAR: Regular rate and rhythm. ABDOMEN: Soft. EXTREMITIES: No edema. LABS AND IMAGING: Reviewed. ASSESSMENT AND PLAN: Patient with history of stomach cancer, status post surgery, treated with chemotherapy; hypertension; osteoarthritis, admitted with pancytopenia, intestinal obstruction and perforation. Patient is status post surgery. Clinical condition is improving. Current count is stable. Continue current care. Further oncological intervention as an outpatient. We will follow patient closely. Job#: [id number]
[2017-11-26] MEDS ORDERED: CENTRAL TPN FORMULA 1 BAG IV SCH (13:15)
[2017-11-26] MEDS ORDERED: ALBUMIN 25% 25GM 0.25 GM/ML BTL IV ONE ×2 (13:15→13:30)
[2017-11-26] MEDS ORDERED: FUROSEMIDE INJ 10 MG/ML 4 ML VIAL IV ONE (13:15)
--- NOTE | 2017-11-26 15:17 | Diagnostic Imaging Report ---
PROCEDURE:X-RAY MODIFIED BARIUM SWALLOW COMPARISON:None. INDICATIONS:C-ARM ASSIST FOR SWALLOW EVALUATION AFTER POST EXTUBATION DISCUSSION:Fluoroscopic examination was performed in conjunction with speech pathology, during swallowing of a variety of thin and thick liquid consistencies. Fluoroscopy time: 2:36 min Cumulative air kerma: 4.68 mGy CONCLUSION:Penetration and trace aspiration visualized. Please see the report from speech pathology for complete details. Dictated by: Salvatore Corbett M.D. on 11/26/2017 at 15:23 Electronically approved by: Salvatore Corbett M.D. on 11/26/2017 at 15:23
[2017-11-26] MEDS: DEXTROSE 5% 1,000 ML IV SCH (17:37)
[2017-11-26] MEDS: MICAFUNGIN SODIUM 100 ML IV SCH (18:24)
[2017-11-26] MEDS: LEVOFLOXACIN 500MG/D5W 100ML 100 ML IV SCH (19:46)
[2017-11-27] VITALS (20 sets, daily range): BP systolic 109–165; BP diastolic 63–84
[2017-11-27] MEDS: METOPROLOL TARTRATE INJ 1 MG/ML VIAL IV SCH ×4 (00:05→18:34)
[2017-11-27] MEDS: ALBUTEROL/IPRATROPIUM 3 ML NEB NEB SCH ×4 (01:30→22:05)
[2017-11-27] MEDS: SODIUM CHLORIDE 0.9% 250ML IRRIG IR SCH ×6 (03:03→23:30)
[2017-11-27 05:52] LABS: BASOPHILS # (AUTO) 0.1 (0.0-0.1); BASOPHILS % 0.5 % (0.0-1.0); EOSINOPHILS # (AUTO) 0.1 (0.0-0.4); HEMATOCRIT 24.8 % (38.2-49.6); HEMOGLOBIN 8.1 g/dL (14.0-18.0); LYMPHOCYTES # (AUTO) 1.3 (1.0-3.2); LYMPHOCYTES % 10.9 % (18.0-39.1); MEAN CORPUSCULAR HEMOGLOBIN 31.9 pg (28-32); MEAN CORPUSCULAR HGB CONC 32.7 g/dL (31-35); MEAN CORPUSCULAR VOLUME 97.6 fL (81-99); MONOCYTES # (AUTO) 1.1 (0.2-0.8); MONOCYTES % 9.8 % (4.4-11.3); NEUTROPHILS # (AUTO) 8.8 (2.1-6.9); NEUTROPHILS % 75.8 % (38.7-80.0); PLATELET COUNT 310 x10e3/uL (140-360); RED BLOOD COUNT 2.54 x10e6/uL (4.3-5.7); RED CELL DISTRIBUTION WIDTH 16.7 % (11.7-14.4)
[2017-11-27] MEDS: INSULIN LISPRO 100 UNIT/1 ML 3ML VIAL SQ SCH ×3 (06:11→18:00)
[2017-11-27 06:28] LABS: ALANINE AMINOTRANSFERASE 7 IU/L (0-55); ALBUMIN 1.7 g/dL (3.5-5.0); ALBUMIN/GLOBULIN RATIO 0.5 (0.8-2.0); ALKALINE PHOSPHATASE 98 IU/L (40-150); ANION GAP 13.4 mmol/L (8-16); BLOOD UREA NITROGEN 23 mg/dL (7-26); BUN/CREATININE RATIO 31 (6-25); CALCIUM 7.3 mg/dL (8.4-10.2); CARBON DIOXIDE 19 mmol/L (22-29); CHLORIDE 107 mmol/L (98-107); CREATININE, SERUM 0.75 mg/dL (0.72-1.25); EST GLOMERULAR FILTRATION RATE > 60 ML/MIN (60-); GLUCOSE 167 mg/dL (74-118); POTASSIUM 3.4 mmol/L (3.5-5.1); SODIUM 136 mmol/L (136-145)
[2017-11-27] MEDS: PANTOPRAZOLE 40 MG 10ML VIAL IV SCH (08:03)
[2017-11-27] MEDS: INSULIN DETEMIR 100 UNIT/ML PEN SQ SCH (08:03)
[2017-11-27] MEDS: CALCIUM GLUCONATE 10% INJ 4.65 MEQ in SODIUM CHLORIDE 0.9% 50ML 100 ML IV SCH (08:03)
[2017-11-27 08:25] LABS: LYMPHOCYTES % (MANUAL) 8 % (19-48); METAMYELOCYTES % (MANUAL) 1 % (0-0); MONOCYTES % (MANUAL) 6 % (3.4-9.0); NEUTROPHILS % (MANUAL) 84 % (40-74)
[2017-11-27 08:26] LABS: ANISOCYTOSIS SLIGHT; HYPOCHROMASIA SLIGHT; PLATELET ESTIMATE ADEQUATE; PLATELET MORPHOLOGY COMMENT NORMAL; RBC MORPHOLOGY COMMENT NORMAL
--- NOTE | 2017-11-27 09:44 | Progress Note ---
DATE: November 27, 2017 The patient was seen and examined today. He is still lethargic and tired, but very communicative. PHYSICAL EXAMINATION GENERAL: Alert, awake and communicative. HEENT: Normocephalic and atraumatic. Sclerae pink. Conjunctivae clear. NECK: Supple. CHEST: Clear to auscultation. Decreased breath sounds at the bases. ABDOMEN: Soft. EXTREMITIES: No edema. LABS AND IMAGING: Reviewed. ASSESSMENT AND PLAN: The patient with a history of stomach cancer, status post surgery, adjuvant chemo, intestinal perforation. Clinical condition is improving. Pancytopenia resolved. The patient has persistent anemia, likely multifactorial, anemia of chronic disease. RECOMMENDATIONS: Blood transfusion if hemoglobin drops below 7.5. Continue current care. Will monitor the patient closely. Job#: [id number] XOCHITL
[2017-11-27] MEDS: NYSTATIN SUSPENSION 5 ML UDC PO SCH ×3 (14:29→20:24)
[2017-11-27] MEDS: DEXTROSE 5% 1,000 ML IV SCH (14:29)
[2017-11-27] MEDS: ONDANSETRON HCL INJ 2 MG/ML VIAL IV PRN (15:00)
[2017-11-27] MEDS: MICAFUNGIN SODIUM 100 ML IV SCH (18:34)
[2017-11-27] MEDS: LEVOFLOXACIN 500MG/D5W 100ML 100 ML IV SCH (20:21)
[2017-11-28] VITALS (7 sets, daily range): BP systolic 109–138; BP diastolic 60–85
[2017-11-28] MEDS: METOPROLOL TARTRATE INJ 1 MG/ML VIAL IV SCH ×5 (00:18→23:30)
[2017-11-28] MEDS: ALBUTEROL/IPRATROPIUM 3 ML NEB NEB SCH ×4 (03:25→19:55)
[2017-11-28] MEDS: SODIUM CHLORIDE 0.9% 250ML IRRIG IR SCH ×7 (03:30→23:30)
[2017-11-28] MEDS: NYSTATIN SUSPENSION 5 ML UDC PO SCH ×5 (05:00→20:22)
[2017-11-28] MEDS: INSULIN LISPRO 100 UNIT/1 ML 3ML VIAL SQ SCH ×5 (06:00→23:31)
--- NOTE | 2017-11-28 06:27 | Diagnostic Imaging Report ---
CHEST SINGLE (PORTABLE), 11/28/2017 4:21 AM Technique: CHEST SINGLE (PORTABLE) Comparison: 11/22/2017 11/19/2017 Clinical history: Excessive cough Findings: See Impression. Contrast is noted in the stomach. Impression: 1. Lines/Tubes: Stable right port at the cavoatrial junction, left IJ CVC at the brachiocephalic SVC junction, and NG tube with tip over the proximal stomach and side-port near the GE junction. 2. Stable cardiomediastinal silhouette. 3. Increasing bilateral rounded and consolidative opacities. This may be due to multifocal pneumonia or septic emboli. 4. Possible underlying edema. Bilateral layering effusions. Signed by: Dr Elise Montana MD on 11/28/2017 6:24 AM
[2017-11-28 08:05] LABS: BASOPHILS # (AUTO) 0.1 (0.0-0.1); BASOPHILS % 0.4 % (0.0-1.0); EOSINOPHILS # (AUTO) 0.2 (0.0-0.4); EOSINOPHILS % 1.1 % (0.0-6.0); HEMATOCRIT 24.1 % (38.2-49.6); HEMOGLOBIN 7.9 g/dL (14.0-18.0); LYMPHOCYTES # (AUTO) 1.6 (1.0-3.2); LYMPHOCYTES % 11.6 % (18.0-39.1); MEAN CORPUSCULAR HEMOGLOBIN 31.7 pg (28-32); MEAN CORPUSCULAR HGB CONC 32.8 g/dL (31-35); MEAN CORPUSCULAR VOLUME 96.8 fL (81-99); MONOCYTES # (AUTO) 1.5 (0.2-0.8); MONOCYTES % 11.1 % (4.4-11.3); NEUTROPHILS # (AUTO) 10.2 (2.1-6.9); NEUTROPHILS % 73.2 % (38.7-80.0); PLATELET COUNT 343 x10e3/uL (140-360); RED BLOOD COUNT 2.49 x10e6/uL (4.3-5.7); RED CELL DISTRIBUTION WIDTH 16.8 % (11.7-14.4)
[2017-11-28 08:15] LABS: ANION GAP 10.7 mmol/L (8-16); BLOOD UREA NITROGEN 21 mg/dL (7-26); BUN/CREATININE RATIO 29 (6-25); CALCIUM 7.3 mg/dL (8.4-10.2); CARBON DIOXIDE 21 mmol/L (22-29); CHLORIDE 105 mmol/L (98-107); CREATININE, SERUM 0.73 mg/dL (0.72-1.25); EST GLOMERULAR FILTRATION RATE > 60 ML/MIN (60-); GLUCOSE 136 mg/dL (74-118); POTASSIUM 3.7 mmol/L (3.5-5.1); SODIUM 133 mmol/L (136-145)
[2017-11-28 08:47] LABS: BAND NEUTROPHILS % (MANUAL) 2 %; LYMPHOCYTES % (MANUAL) 10 % (19-48); MONOCYTES % (MANUAL) 9 % (3.4-9.0); NEUTROPHILS % (MANUAL) 75 % (40-74); PLATELET ESTIMATE ADEQUATE; PLATELET MORPHOLOGY COMMENT FEW LARGE
[2017-11-28 08:48] LABS: ANISOCYTOSIS SLIGHT; HYPOCHROMASIA SLIGHT; RBC MORPHOLOGY COMMENT NORMAL
--- NOTE | 2017-11-28 09:21 | Progress Note ---
DATE: November 28, 2017 SUBJECTIVE: Patient seen and examined today. Patient mildly short of breath. His current x-ray showed worsening lung disease. PHYSICAL EXAMINATION: GENERAL: Alert, awake, communicative. HEENT: Normocephalic, atraumatic. Sclerae pale. Conjunctivae clear. NECK: Supple. CHEST: Decreased breath sounds on bases. CARDIOVASCULAR: Regular rate and rhythm. ABDOMEN: Soft, nontender. EXTREMITIES: No edema. LABS AND IMAGING: Reviewed. ASSESSMENT AND PLAN: Patient with history of gastric cancer, admitted with perforation of intestine. Patient was surgically treated. Patient's clinical condition was improving, but last night and this morning he is getting more sicker. Hemoglobin dropped to 7.9. At current, recommendation to monitor complete blood cell count. Blood transfusion if hemoglobin drops. Following general passenger agent. Continue remaining care. Job#: [id number]
[2017-11-28] MEDS: PANTOPRAZOLE 40 MG 10ML VIAL IV SCH (09:32)
[2017-11-28] MEDS: CALCIUM GLUCONATE 10% INJ 4.65 MEQ in SODIUM CHLORIDE 0.9% 50ML 100 ML IV SCH (09:32)
[2017-11-28] MEDS: INSULIN DETEMIR 100 UNIT/ML PEN SQ SCH (09:32)
--- NOTE | 2017-11-28 12:37 | Diagnostic Imaging Report ---
EXAM: CT Chest WITHOUT contrast INDICATION: \S\sepsis \S\[id number] \S\1000 COMPARISON: Chest x-rays dated 11/28/2017 and 11/22/2017. CT dated 10/25/2016 TECHNIQUE: Chest was scanned utilizing a multidetector helical scanner from the lung apex through the level of the adrenal glands without administration of IV contrast. Absence of intravenous contrast decreases sensitivity for detection of lymphadenopathy and vascular pathology. Coronal and sagittal reformations were obtained. Routine protocol was performed. IV CONTRAST: None COMPLICATIONS: None RADIATION DOSE: Total DLP: 520.57 mGy*cm Estimated effective dose: (DLP x 0.014 x size factor) mSv CTDIvol has been reviewed. It is below the limits set by the Radiation Protocol Committee (RPC). FINDINGS: LINES/ TUBES: Right chest wall port in place with tip terminating in inferior SVC. Left IJ central line with tip at the distal brachiocephalic vein. Nasogastric tube in place with tip terminating in gastric body. LUNGS AND AIRWAYS: Multifocal bilateral airspace opacities and consolidations. Compressive atelectasis of the most of the left lower lobe. Airways are normal. PLEURA: Moderate size left and small right pleural effusions. HEART AND MEDIASTINUM: The thyroid gland is normal. Mediastinal lymphadenopathy. For example 1.4 cm AP window lymph node (series 2, image 45) or no axillary lymphadenopathy. 1.8 cm precarinal lymph node. The heart is normal in size.. Trace pericardial fluid. UPPER ABDOMEN: Markedly hyperintense, likely barium, within stomach. Evidence of gastric surgery. BONES: The visualized bony thorax is within normal limits. SOFT TISSUES: Unremarkable. IMPRESSION: Multifocal bilateral lung airspace opacities and consolidations, concerning for infectious process. Moderate left and small right pleural effusions. Mediastinal lymphadenopathy, likely reactive. These findings are new when compared to CT dated 10/25/2016. Signed by: Dr. Salvatore Corbett MD on 11/28/2017 12:34 PM
--- NOTE | 2017-11-28 15:47 | Diagnostic Imaging Report ---
PROCEDURE:US GUIDANCE FOR VASCULAR ACCESS COMPARISON:[facility], CT, CT CHEST WO, 11/28/2017, 10:07. INDICATIONS:Presumed line sepsis FINDINGS:Patient is febrile and has a left IJ central line that is presumed to be infected. A Is requested. He also has a right IJ tunneled Port-A-Cath present. Review of his recent CT shows the right IJ to be small and atretic and thrombosed around the Port-A-Cath line. Therefore a new IJ line on the right could not be placed. Utilizing sterile technique the 7 Syrian triple lumen 16 cm central line was exchanged over a 0.035 inch J-wire. A new 7 Syrian triple line was placed over the wire and secured to the skin. Ultrasound was utilized to confirm the new catheter placement in the vein. A permanent recording was created for the patient record. CONCLUSION:Successful left IJ triple lumen exchange. Jimmie Taylor D.O. Dictated by: Jimmie Taylor D.O. on 11/28/2017 at 15:52 Electronically approved by: Jimmie Taylor D.O. on 11/28/2017 at 15:52
--- NOTE | 2017-11-28 15:51 | Diagnostic Imaging Report ---
PROCEDURE:NON-TUNNELLED CVC CATH REPLACE COMPARISON:[facility], , [place] GUIDANCE FOR VASCULAR ACCESS, 11/28/2017, 15:29. INDICATIONS: Central line exchange COMPLICATIONS: Presumed line sepsis MEDICATIONS: None BLOOD LOSS: None PROCEDURE: Left IJ central line was exchanged over a wire for a new central line. A new central line could not be placed in the right IJ as requested because the right IJ appears thrombosed around the Port-A-Cath catheter. Please see the full report associated with accession number [id number] for full details. CONCLUSION: Left IJ central line exchange. Jimmie Taylor D.O. Dictated by: Jimmie Taylor D.O. on 11/28/2017 at 15:56 Electronically approved by: Jimmie Taylor D.O. on 11/28/2017 at 15:56
--- NOTE | 2017-11-28 15:51 | Diagnostic Imaging Report ---
PROCEDURE:NON-TUNNELLED CVC CATH REPLACE COMPARISON:[facility], , [place] GUIDANCE FOR VASCULAR ACCESS, 11/28/2017, 15:29. INDICATIONS: Central line exchange COMPLICATIONS: Presumed line sepsis MEDICATIONS: None BLOOD LOSS: None PROCEDURE: Left IJ central line was exchanged over a wire for a new central line. A new central line could not be placed in the right IJ as requested because the right IJ appears thrombosed around the Port-A-Cath catheter. Please see the full report associated with accession number [id number] for full details. CONCLUSION: Left IJ central line exchange. Jimmie Taylor D.O. Dictated by: Jimmie Taylor D.O. on 11/28/2017 at 15:56 Electronically approved by: Jimmie Taylor D.O. on 11/28/2017 at 15:56
[2017-11-28] MEDS: PIPERACILLIN/TAZO 2.25 GM 50 ML IV SCH (18:05)
[2017-11-28] MEDS: MICAFUNGIN SODIUM 100 ML IV SCH (18:42)
[2017-11-28] MEDS: ACETAMINOPHEN 325 MG TAB PO PRN (20:22)
[2017-11-28] MEDS: DEXTROSE 5% 1,000 ML IV SCH (22:33)
[2017-11-29] VITALS (7 sets, daily range): BP systolic 115–149; BP diastolic 73–79
[2017-11-29] MEDS: ALBUTEROL/IPRATROPIUM 3 ML NEB NEB SCH ×4 (01:05→19:05)
[2017-11-29] MEDS: ACETAMINOPHEN 325 MG TAB PO PRN ×3 (02:16→15:29)
[2017-11-29] MEDS: SODIUM CHLORIDE 0.9% 250ML IRRIG IR SCH ×6 (03:28→23:30)
[2017-11-29 05:08] LABS: BASOPHILS # (AUTO) 0.1 (0.0-0.1); BASOPHILS % 0.4 % (0.0-1.0); EOSINOPHILS # (AUTO) 0.2 (0.0-0.4); EOSINOPHILS % 1.1 % (0.0-6.0); HEMATOCRIT 22.9 % (38.2-49.6); HEMOGLOBIN 7.5 g/dL (14.0-18.0); LYMPHOCYTES # (AUTO) 1.6 (1.0-3.2); LYMPHOCYTES % 11.4 % (18.0-39.1); MEAN CORPUSCULAR HEMOGLOBIN 31.8 pg (28-32); MEAN CORPUSCULAR HGB CONC 32.8 g/dL (31-35); MONOCYTES # (AUTO) 1.5 (0.2-0.8); MONOCYTES % 11.1 % (4.4-11.3); NEUTROPHILS % 73.4 % (38.7-80.0); PLATELET COUNT 360 x10e3/uL (140-360); RED BLOOD COUNT 2.36 x10e6/uL (4.3-5.7); RED CELL DISTRIBUTION WIDTH 16.8 % (11.7-14.4)
[2017-11-29 05:20] LABS: ANION GAP 11.5 mmol/L (8-16); BLOOD UREA NITROGEN 19 mg/dL (7-26); BUN/CREATININE RATIO 28 (6-25); CALCIUM 7.4 mg/dL (8.4-10.2); CARBON DIOXIDE 22 mmol/L (22-29); CHLORIDE 108 mmol/L (98-107); CREATININE, SERUM 0.68 mg/dL (0.72-1.25); EST GLOMERULAR FILTRATION RATE > 60 ML/MIN (60-); GLUCOSE 183 mg/dL (74-118); POTASSIUM 3.5 mmol/L (3.5-5.1); SODIUM 138 mmol/L (136-145)
[2017-11-29] MEDS: PIPERACILLIN/TAZO 2.25 GM 50 ML IV SCH ×2 (05:38→18:14)
[2017-11-29] MEDS: METOPROLOL TARTRATE INJ 1 MG/ML VIAL IV SCH ×3 (05:38→16:47)
[2017-11-29] MEDS: NYSTATIN SUSPENSION 5 ML UDC PO SCH ×5 (05:38→21:45)
[2017-11-29] MEDS: INSULIN LISPRO 100 UNIT/1 ML 3ML VIAL SQ SCH ×3 (05:43→17:59)
[2017-11-29 07:01] LABS: LYMPHOCYTES % (MANUAL) 6 % (19-48); MONOCYTES % (MANUAL) 7 % (3.4-9.0); MYELOCYTES % (MANUAL) 1 % (0-0); NEUTROPHILS % (MANUAL) 86 % (40-74)
[2017-11-29 07:02] LABS: ANISOCYTOSIS SLIGHT; PLATELET ESTIMATE ADEQUATE; PLATELET MORPHOLOGY COMMENT FEW GIANT; RBC MORPHOLOGY COMMENT NORMAL
[2017-11-29] MEDS: PANTOPRAZOLE 40 MG 10ML VIAL IV SCH (08:00)
[2017-11-29] MEDS: CALCIUM GLUCONATE 10% INJ 4.65 MEQ in SODIUM CHLORIDE 0.9% 50ML 100 ML IV SCH (08:00)
[2017-11-29] MEDS: INSULIN DETEMIR 100 UNIT/ML PEN SQ SCH (08:12)
[2017-11-29] MEDS ORDERED: ACETAMINOPHEN 325 MG TAB PO STA (08:19)
[2017-11-29] MEDS ORDERED: SODIUM CHLORIDE 0.9% 250ML 250 ML IV ONE (08:30)
--- NOTE | 2017-11-29 10:11 | Progress Note ---
DATE: November 29, 2017 SUBJECTIVE: Patient seen and examined today. Patient complaining of worsening pain. He is still fatigued, lethargic, tired, and short of breath. PHYSICAL EXAMINATION GENERAL: Alert, awake, communicative. HEENT: Normocephalic, atraumatic. Sclerae pale. Conjunctivae clear. NECK: Supple. CHEST: Decreased breath sounds on bases. CARDIOVASCULAR: Regular rate and rhythm. ABDOMEN: Soft. EXTREMITIES: No edema. LABS AND IMAGING: Reviewed. ASSESSMENT AND PLAN 1. Patient with history of gastric cancer, status post resection, admitted with intestinal perforation, status post repair. Clinically doing better. No evidence of any active malignancy. 2. Anemia. Patient's hemoglobin keeps dropping. No evidence of any active bleeding. Recommendation for blood transfusion. 3. Gastric cancer. Patient received surgery and chemo. Recommendation: Outpatient followup for re-staging. We will continue remaining care. We will follow patient. Job#: [id number]
[2017-11-29] MEDS: MICAFUNGIN SODIUM 100 ML IV SCH (17:29)
[2017-11-29] MEDS: DEXTROSE 5% 1,000 ML IV SCH (17:30)
[2017-11-29] MEDS: HYDROMORPHONE 1MG/1ML INJ IV PRN (18:14)
[2017-11-30] VITALS (8 sets, daily range): BP systolic 103–152; BP diastolic 64–92
[2017-11-30] MEDS: ALBUTEROL/IPRATROPIUM 3 ML NEB NEB SCH ×4 (01:00→19:30)
[2017-11-30] MEDS: ONDANSETRON HCL INJ 2 MG/ML VIAL IV PRN ×3 (01:17→23:57)
[2017-11-30] MEDS: METOPROLOL TARTRATE INJ 1 MG/ML VIAL IV SCH ×4 (01:19→19:00)
[2017-11-30] MEDS: HYDROMORPHONE 1MG/1ML INJ IV PRN ×2 (01:40→08:13)
[2017-11-30] MEDS: SODIUM CHLORIDE 0.9% 250ML IRRIG IR SCH ×6 (03:30→23:30)
[2017-11-30 05:57] LABS: BASOPHILS # (AUTO) 0.1 (0.0-0.1); EOSINOPHILS # (AUTO) 0.1 (0.0-0.4); EOSINOPHILS % 0.7 % (0.0-6.0); HEMATOCRIT 33.6 % (38.2-49.6); HEMOGLOBIN 10.8 g/dL (14.0-18.0); LYMPHOCYTES # (AUTO) 1.4 (1.0-3.2); LYMPHOCYTES % 9.9 % (18.0-39.1); MEAN CORPUSCULAR HGB CONC 32.1 g/dL (31-35); MEAN CORPUSCULAR VOLUME 96.6 fL (81-99); MONOCYTES # (AUTO) 1.6 (0.2-0.8); MONOCYTES % 11.3 % (4.4-11.3); NEUTROPHILS # (AUTO) 10.4 (2.1-6.9); NEUTROPHILS % 72.4 % (38.7-80.0); PLATELET COUNT 362 x10e3/uL (140-360); RED BLOOD COUNT 3.48 x10e6/uL (4.3-5.7); RED CELL DISTRIBUTION WIDTH 16.8 % (11.7-14.4)
[2017-11-30] MEDS: INSULIN LISPRO 100 UNIT/1 ML 3ML VIAL SQ SCH ×4 (06:00→18:00)
[2017-11-30 06:20] LABS: ANION GAP 9.9 mmol/L (8-16); BLOOD UREA NITROGEN 19 mg/dL (7-26); BUN/CREATININE RATIO 28 (6-25); CALCIUM 7.8 mg/dL (8.4-10.2); CARBON DIOXIDE 23 mmol/L (22-29); CHLORIDE 104 mmol/L (98-107); CREATININE, SERUM 0.67 mg/dL (0.72-1.25); EST GLOMERULAR FILTRATION RATE > 60 ML/MIN (60-); GLUCOSE 156 mg/dL (74-118); POTASSIUM 3.9 mmol/L (3.5-5.1); SODIUM 133 mmol/L (136-145)
[2017-11-30] MEDS: PIPERACILLIN/TAZO 2.25 GM 50 ML IV SCH ×2 (06:28→18:07)
[2017-11-30] MEDS: NYSTATIN SUSPENSION 5 ML UDC PO SCH ×6 (06:31→21:00)
[2017-11-30] MEDS: SODIUM CHLORIDE FLUSH 10 ML SYR INJ PRN ×3 (08:13→14:52)
[2017-11-30] MEDS: PANTOPRAZOLE 40 MG 10ML VIAL IV SCH (08:14)
[2017-11-30 08:46] LABS: ANISOCYTOSIS SLIGHT; BAND NEUTROPHILS % (MANUAL) 4 %; LYMPHOCYTES % (MANUAL) 5 % (19-48); METAMYELOCYTES % (MANUAL) 1 % (0-0); MONOCYTES % (MANUAL) 8 % (3.4-9.0); MYELOCYTES % (MANUAL) 1 % (0-0); NEUTROPHILS % (MANUAL) 78 % (40-74); PLATELET ESTIMATE ADEQUATE; PLATELET MORPHOLOGY COMMENT NORMAL; POLYCHROMASIA FEW; RBC MORPHOLOGY COMMENT NORMAL
--- NOTE | 2017-11-30 09:04 | Progress Note ---
DATE: November 30, 2017 The patient was seen and examined today. The patient appeared better. Hemoglobin improved after transfusion. No worsening events noted. PHYSICAL EXAMINATION GENERAL: Alert, awake, lethargic, fatigued, and tired. HEENT: Normocephalic and atraumatic. Sclerae pink. Conjunctivae clear. NG tube placed. NECK: Supple. CHEST: Clear to auscultation with decreased breath sounds in the bases. CARDIOVASCULAR: Regular rate and rhythm. ABDOMEN: Soft. EXTREMITIES: No edema. LABS AND IMAGING: Reviewed. ASSESSMENT AND PLAN: The patient has a history of stomach cancer, status post surgery, adjuvant chemotherapy, admitted with intestinal perforation, status post repair, anemia, pneumonia. The patient's current hemoglobin improved after transfusion. Clinical condition is stable. Currently, clinically doing better. Recommendation to continue current regimen. Will follow. Job#: [id number] XOCHITL
[2017-11-30] MEDS: CALCIUM GLUCONATE 10% INJ 4.65 MEQ in SODIUM CHLORIDE 0.9% 50ML 100 ML IV SCH (09:58)
[2017-11-30] MEDS: INSULIN DETEMIR 100 UNIT/ML PEN SQ SCH (13:36)
[2017-11-30] MEDS: DEXTROSE 5% 1,000 ML IV SCH (17:37)
[2017-11-30] MEDS: ACETAMINOPHEN 325 MG TAB PO PRN (23:46)
[2017-12-01] VITALS (8 sets, daily range): BP systolic 101–146; BP diastolic 60–92
[2017-12-01] MEDS: ALBUTEROL/IPRATROPIUM 3 ML NEB NEB SCH ×4 (00:45→19:30)
[2017-12-01] MEDS: SODIUM CHLORIDE 0.9% 250ML IRRIG IR SCH ×7 (03:30→23:30)
[2017-12-01] MEDS: NYSTATIN SUSPENSION 5 ML UDC PO SCH ×5 (05:35→21:54)
[2017-12-01] MEDS: METOPROLOL TARTRATE INJ 1 MG/ML VIAL IV SCH ×4 (06:00→18:59)
[2017-12-01] MEDS: INSULIN LISPRO 100 UNIT/1 ML 3ML VIAL SQ SCH ×4 (06:00→18:00)
[2017-12-01 06:10] LABS: ANION GAP 10.9 mmol/L (8-16); BLOOD UREA NITROGEN 20 mg/dL (7-26); BUN/CREATININE RATIO 31 (6-25); CALCIUM 8.2 mg/dL (8.4-10.2); CARBON DIOXIDE 23 mmol/L (22-29); CHLORIDE 104 mmol/L (98-107); CREATININE, SERUM 0.65 mg/dL (0.72-1.25); EST GLOMERULAR FILTRATION RATE > 60 ML/MIN (60-); GLUCOSE 93 mg/dL (74-118); POTASSIUM 3.9 mmol/L (3.5-5.1); SODIUM 134 mmol/L (136-145)
[2017-12-01] MEDS: PIPERACILLIN/TAZO 2.25 GM 50 ML IV SCH ×2 (06:27→18:28)
[2017-12-01] MEDS: PANTOPRAZOLE 40 MG 10ML VIAL IV SCH (08:56)
[2017-12-01] MEDS: SODIUM CHLORIDE FLUSH 10 ML SYR INJ PRN ×3 (09:00→17:32)
[2017-12-01] MEDS: INSULIN DETEMIR 100 UNIT/ML PEN SQ SCH (09:00)
[2017-12-01] MEDS: CALCIUM GLUCONATE 10% INJ 4.65 MEQ in SODIUM CHLORIDE 0.9% 50ML 100 ML IV SCH (09:00)
[2017-12-01] MEDS: ACETAMINOPHEN 325 MG TAB PO PRN ×3 (11:00→21:55)
--- NOTE | 2017-12-01 11:02 | Progress Note ---
DATE: December 01, 2017 SUBJECTIVE: Patient seen and examined today. Patient appeared comfortable. Clinically doing better. Still requiring NG tube. PHYSICAL EXAMINATION: GENERAL: Alert, awake, communicative. HEENT: Normocephalic, atraumatic. Sclerae pale. Conjunctivae clear. NECK: Supple. CHEST: Decreased breath sounds on bases. CARDIOVASCULAR: Regular rate and rhythm. ABDOMEN: Soft. EXTREMITIES: No edema. LABS AND IMAGING: Reviewed. ASSESSMENT AND PLAN: Patient with history of gastric cancer, status post surgery and adjuvant chemotherapy, admitted with perforated small intestine, status post repair. Patient also has infection, pneumonia, anemia, pancytopenia. Current complete blood cell count showed stable counts. Clinical condition is stable. Recommendation to continue current care. Do not recommend any hematological intervention. For oncology, patient will be followed as outpatient for restaging workup. Will follow patient closely. Job#: [id number]
[2017-12-01] MEDS: EYE LUBRICANT OPTH OINT 3.5GM TUBE OP PRN (15:18)
[2017-12-01] MEDS: DEXTROSE 5% 1,000 ML IV SCH (17:37)
[2017-12-01] MEDS: ONDANSETRON HCL INJ 2 MG/ML VIAL IV PRN (21:55)
[2017-12-01] MEDS: HYDROMORPHONE 1MG/1ML INJ IV PRN (23:12)
[2017-12-02] MEDS: ALBUTEROL/IPRATROPIUM 3 ML NEB NEB SCH ×4 (00:50→19:18)
[2017-12-02] MEDS: METOPROLOL TARTRATE INJ 1 MG/ML VIAL IV SCH ×4 (01:04→18:00)
[2017-12-02 01:05] VITALS: BP 117/78
[2017-12-02] MEDS: SODIUM CHLORIDE 0.9% 250ML IRRIG IR SCH ×4 (03:30→15:30)
[2017-12-02 04:21] VITALS: BP 144/96
[2017-12-02] MEDS: NYSTATIN SUSPENSION 5 ML UDC PO SCH ×5 (04:26→21:37)
[2017-12-02] MEDS: INSULIN LISPRO 100 UNIT/1 ML 3ML VIAL SQ SCH ×4 (06:00→18:00)
[2017-12-02] MEDS: PIPERACILLIN/TAZO 2.25 GM 50 ML IV SCH ×2 (06:32→18:17)
--- NOTE | 2017-12-02 06:49 | Diagnostic Imaging Report ---
ABDOMEN-1VIEW (KUB) Clinical history: Nausea Technique: AP views of the abdomen Comparison: Recent CT from 11/28/2017 Findings: Limited by motion artifact. Hemidiaphragms are excluded from view. High density material seen in the left upper quadrant. NG tube seen on recent CT is not visualized, either removed or obscured. Mild gaseous distention of small and large bowel. Contrast/high density material and stool seen in the colon. Impression: Findings favored to reflect ileus. Attention on follow-up to exclude developing/partial small bowel obstruction. Signed by: Dr Elise Montana MD on 12/02/2017 6:46 AM
[2017-12-02 08:00] VITALS: BP 146/79
[2017-12-02] MEDS: INSULIN DETEMIR 100 UNIT/ML PEN SQ SCH (08:30)
[2017-12-02] MEDS: PANTOPRAZOLE 40 MG 10ML VIAL IV SCH (09:13)
[2017-12-02] MEDS: CALCIUM GLUCONATE 10% INJ 4.65 MEQ in SODIUM CHLORIDE 0.9% 50ML 100 ML IV SCH (10:08)
[2017-12-02] MEDS ORDERED: ACETAMINOPHEN 1000 MG/100 ML IV PRN (10:30)
--- NOTE | 2017-12-02 10:46 | Diagnostic Imaging Report ---
Abdomen/KUB INDICATION: NG tube placement COMPARISON: Abdomen x-ray 0633 hours. FINDINGS: Portable, supine image obtained at 1001 hours. Medical Devices: No evidence of enteric tube on provided images. Bowel: High density material in the left upper quadrant is stable. Small bowel loops are distended with air measuring up to 3.8 cm in diameter. Some high density material in the large bowel is stable in position. Large burden of stool in the proximal transverse colon. No pneumatosis. Calcifications: None Organomegaly: None Free air: None. Lung bases: No confluent infiltrates. Bones: Unremarkable IMPRESSION: No evidence of enteric tube on these images. Distended small bowel loops are similar suggestive of ileus. Large burden of stool in the proximal transverse colon. Signed by: Dr. Devon Anderson MD on 12/02/2017 10:42 AM
[2017-12-02] MEDS ORDERED: FUROSEMIDE INJ 10 MG/ML 4 ML VIAL IV ONE (11:00)
[2017-12-02 12:00] VITALS: BP 114/72
--- NOTE | 2017-12-02 12:15 | Diagnostic Imaging Report ---
Abdomen/KUB INDICATION: NG tube reposition COMPARISON: Abdomen x-ray 1001 hours. FINDINGS: Portable, supine image obtained at 1144 hours. Medical Devices: Enteric tube terminates in the distal esophagus Bowel: Dilated small bowel loops are stable measuring up to 3.7 cm in diameter. No pneumatosis. High density material in the left upper quadrant is stable. Large amount of stool in the proximal transverse colon is stable. Calcifications: None over the renal shadows or along the course of the ureters Organomegaly: None Bones: Stable IMPRESSION: Enteric tube terminates above the diaphragm. Stable small bowel dilatation suggestive of ileus or low-grade partial small bowel obstruction. Signed by: Dr. Devon Anderson MD on 12/02/2017 12:12 PM
--- NOTE | 2017-12-02 12:16 | Diagnostic Imaging Report ---
EXAMINATION: CHEST SINGLE (PORTABLE) COMPARISON: CT chest 11/28/2017, chest x-ray 11/28/2017 INDICATION: NG tube repositioning DISCUSSION: Frontal view of the chest obtained at 1136 hours. HEART AND MEDIASTINUM: The cardiomediastinal silhouette is unremarkable. LINES: Enteric tube terminates in the midesophagus. Left IJ catheter terminates in the innominate vein. MediPort catheter terminates in the SVC. LUNGS: Widespread pulmonary nodules or infiltrates are redemonstrated and similar in appearance. There is left basilar atelectasis. PLEURA: Left pleural effusion is present small to moderate in size. No evidence of right pleural effusion. No pneumothorax. BONES AND SOFT TISSUES: No focal osseous lesion. The soft tissues are normal. IMPRESSION: 1. Enteric tube terminates in the mid esophagus. Recommend advancement by approximately 15 cm to ensure placement within the stomach. 2. Central lines as described above. 3. Multifocal pulmonary masses/infiltrates with small to moderate-sized left pleural effusion. Stable left basilar atelectasis. Signed by: Dr. Devon Anderson MD on 12/02/2017 12:12 PM
[2017-12-02 13:16] LABS: ABG HCO3 25 mmol/L (23-28); ABG PCO2 32 mmHg (41-51); ABG PO2 129 mmHg (80-105)
--- NOTE | 2017-12-02 13:33 | Diagnostic Imaging Report ---
Abdomen/KUB Tube Placement CPT CODE: 77176 INDICATION: Tube placement. COMPARISON: Abdomen x-ray 1144 hours. FINDINGS: Portable, supine image obtained at 1251 hours. Enteric tube is located in the proximal stomach. There is less high density material in the left upper quadrant. The bowel gas pattern is stable. Dilated small bowel loops in the midabdomen are similar. IMPRESSION: Enteric tube terminates in the proximal stomach. Stable small bowel distention. Signed by: Dr. Devon Anderson MD on 12/02/2017 1:30 PM
[2017-12-02 16:00] VITALS: BP 106/85
[2017-12-02] MEDS: DEXTROSE 5% 1,000 ML IV SCH (16:12)
[2017-12-02] MEDS ORDERED: ENOXAPARIN SOD INJ 40 MG/0.4 ML SYR SC SCH (17:00)
[2017-12-02 20:00] VITALS: BP 101/69
[2017-12-02] MEDS: ENOXAPARIN SOD INJ 40 MG/0.4 ML SYR SC SCH (21:37)
[2017-12-03 00:15] VITALS: BP 116/75
[2017-12-03] MEDS: ALBUTEROL/IPRATROPIUM 3 ML NEB NEB SCH ×5 (01:05→23:15)
[2017-12-03] MEDS: INSULIN LISPRO 100 UNIT/1 ML 3ML VIAL SQ SCH ×4 (06:00→17:34)
[2017-12-03] MEDS: METOPROLOL TARTRATE INJ 1 MG/ML VIAL IV SCH ×4 (06:00→17:18)
[2017-12-03 06:05] LABS: BASOPHILS # (AUTO) 0.1 (0.0-0.1); BASOPHILS % 0.6 % (0.0-1.0); EOSINOPHILS # (AUTO) 0.2 (0.0-0.4); EOSINOPHILS % 1.4 % (0.0-6.0); HEMATOCRIT 31.2 % (38.2-49.6); HEMOGLOBIN 9.8 g/dL (14.0-18.0); LYMPHOCYTES # (AUTO) 1.9 (1.0-3.2); LYMPHOCYTES % 11.8 % (18.0-39.1); MEAN CORPUSCULAR HEMOGLOBIN 30.9 pg (28-32); MEAN CORPUSCULAR HGB CONC 31.4 g/dL (31-35); MEAN CORPUSCULAR VOLUME 98.4 fL (81-99); MONOCYTES # (AUTO) 1.9 (0.2-0.8); MONOCYTES % 11.8 % (4.4-11.3); NEUTROPHILS # (AUTO) 11.6 (2.1-6.9); NEUTROPHILS % 71.3 % (38.7-80.0); PLATELET COUNT 394 x10e3/uL (140-360); RED BLOOD COUNT 3.17 x10e6/uL (4.3-5.7); RED CELL DISTRIBUTION WIDTH 15.9 % (11.7-14.4)
[2017-12-03 06:15] LABS: ALANINE AMINOTRANSFERASE 10 IU/L (0-55); ALBUMIN 1.5 g/dL (3.5-5.0); ALBUMIN/GLOBULIN RATIO 0.3 (0.8-2.0); ALKALINE PHOSPHATASE 126 IU/L (40-150); ANION GAP 10.9 mmol/L (8-16); BLOOD UREA NITROGEN 23 mg/dL (7-26); BUN/CREATININE RATIO 29 (6-25); CALCIUM 8.5 mg/dL (8.4-10.2); CARBON DIOXIDE 27 mmol/L (22-29); CHLORIDE 102 mmol/L (98-107); CREATININE, SERUM 0.79 mg/dL (0.72-1.25); EST GLOMERULAR FILTRATION RATE > 60 ML/MIN (60-); GLUCOSE 101 mg/dL (74-118); POTASSIUM 3.9 mmol/L (3.5-5.1); SODIUM 136 mmol/L (136-145)
[2017-12-03] MEDS: NYSTATIN SUSPENSION 5 ML UDC PO SCH ×5 (06:16→21:10)
[2017-12-03] MEDS: PIPERACILLIN/TAZO 2.25 GM 50 ML IV SCH ×2 (06:18→17:18)
[2017-12-03 06:51] LABS: AMYLASE 96 U/L (25-125); LIPASE 60 U/L (8-78)
[2017-12-03 08:00] VITALS: BP 129/82
[2017-12-03] MEDS: SODIUM CHLORIDE 0.9% 250ML IRRIG IR SCH ×6 (08:00→23:31)
[2017-12-03] MEDS: ENOXAPARIN SOD INJ 40 MG/0.4 ML SYR SC SCH ×2 (08:55→21:10)
[2017-12-03] MEDS: PANTOPRAZOLE 40 MG 10ML VIAL IV SCH (08:55)
[2017-12-03] MEDS: CALCIUM GLUCONATE 10% INJ 4.65 MEQ in SODIUM CHLORIDE 0.9% 50ML 100 ML IV SCH (08:55)
[2017-12-03] MEDS: INSULIN DETEMIR 100 UNIT/ML PEN SQ SCH (09:00)
--- NOTE | 2017-12-03 09:51 | Progress Note ---
DATE: December 03, 2017 SUBJECTIVE: Patient seen and examined today. Patient appeared comfortable. Still NG tube placed. No worsening event noted. PHYSICAL EXAMINATION: GENERAL: Alert, awake, communicative. HEENT: Normocephalic, atraumatic. Sclerae pale. Conjunctivae clear. NECK: Supple. CHEST: Decreased breath sounds on bases. CARDIOVASCULAR: Regular rate and rhythm. ABDOMEN: Soft. EXTREMITIES: No edema. LABS AND IMAGING: Reviewed. ASSESSMENT AND PLAN: Patient with history of stomach cancer, status post surgery and adjuvant chemotherapy, admitted with intestinal perforation. Clinically doing better, requires surgical repair. Patient also had pancytopenia. Current complete blood cell count did not show any worsening pancytopenia. Hemoglobin is stable. At current, recommendations to continue current care. Try to avoid frequent blood drawn. Will monitor patient closely. Job#: [id number]
[2017-12-03 14:20] VITALS: BP 121/73
[2017-12-03] MEDS: ACETAMINOPHEN 325 MG TAB PO PRN (17:18)
[2017-12-03 20:55] VITALS: BP 108/68
[2017-12-03] MEDS: HYDROMORPHONE 1MG/1ML INJ IV PRN (21:23)
[2017-12-03 23:00] VITALS: BP 114/74
[2017-12-03] MEDS: ONDANSETRON HCL INJ 2 MG/ML VIAL IV PRN (23:13)
--- NOTE | 2017-12-03 23:37 | Progress Note ---
DATE: December 03, 2017 INTERNAL MEDICINE PROGRESS NOTE This is coverage for Dr. Deacon Blackman. SUBJECTIVE: Mr. Morgan was seen and examined at bedside. Low intermittent wall suction was given to him. Patient did not have any more emesis. He sat in the bed yesterday, although he did not get up, sitting today. He used BiPAP at night with better breathing; 0.4 L in, 2.4 L out, 100% oxygen saturation. Chest x-ray with multiple pulmonary masses with left moderate effusion. REVIEW OF SYSTEMS: No headaches, no rash. OBJECTIVE VITAL SIGNS: Afebrile, vital signs noted per the chart record. GENERAL: No acute distress. Alert and calm. HEENT: Normocephalic, atraumatic. NECK: Supple. Throat midline. LUNGS: Bilateral air entry, bilateral rhonchi, few rales. CARDIOVASCULAR: S1, S2. No murmurs, rubs, or gallops. ABDOMEN: Soft, nontender. EXTREMITIES: No clubbing, no cyanosis. There is 1+ edema. INTEGUMENT: No rash, no purpura. LABS: White count 15, INR 1.6, albumin 1.5. A pH of 7.50, pCO2 of 32, pO2 of 129. BUN 23 and creatinine 0.8. IMPRESSIONS 1. Perforated hollow viscus, small bowel. 2. Postoperative state, status post repair with ileostomy. 3. Secondary peritonitis. 4. History of gastric cancer, status post surgery 8 months ago and on recent chemotherapy. 5. Hypertension. 6. Degenerative joint disease. 7. Respiratory failure. 8. Recent neutropenia. 9. Acute kidney injury, resolved. 10. Severe protein calorie malnutrition. PLAN 1. Continue to optimize nutrition. 2. Resume tube feeds as per surgeon. 3. Continue pulmonary toileting. 4. If he continues to do good today, we will get him to LTAC tomorrow. 5. Continue mobilization as possible. 6. Repeat blood work to ensure the white count improves. 7. Continue antibiotics. 8. DVT prophylaxis. Job#: [id number]
[2017-12-04] VITALS (7 sets, daily range): BP systolic 123–136; BP diastolic 71–86
[2017-12-04] MEDS: HYDROMORPHONE 1MG/1ML INJ IV PRN ×2 (03:38→09:56)
[2017-12-04 05:25] LABS: BASOPHILS # (AUTO) 0.1 (0.0-0.1); BASOPHILS % 0.9 % (0.0-1.0); EOSINOPHILS # (AUTO) 0.2 (0.0-0.4); HEMATOCRIT 29.3 % (38.2-49.6); HEMOGLOBIN 9.3 g/dL (14.0-18.0); LYMPHOCYTES # (AUTO) 1.6 (1.0-3.2); LYMPHOCYTES % 14.5 % (18.0-39.1); MEAN CORPUSCULAR HGB CONC 31.7 g/dL (31-35); MEAN CORPUSCULAR VOLUME 97.7 fL (81-99); MONOCYTES # (AUTO) 1.3 (0.2-0.8); MONOCYTES % 11.1 % (4.4-11.3); NEUTROPHILS # (AUTO) 7.7 (2.1-6.9); NEUTROPHILS % 68.3 % (38.7-80.0); PLATELET COUNT 363 x10e3/uL (140-360); RED CELL DISTRIBUTION WIDTH 15.6 % (11.7-14.4)
[2017-12-04] MEDS: METOPROLOL TARTRATE INJ 1 MG/ML VIAL IV SCH ×5 (06:00→23:51)
[2017-12-04] MEDS: INSULIN LISPRO 100 UNIT/1 ML 3ML VIAL SQ SCH ×5 (06:00→23:51)
[2017-12-04] MEDS: SODIUM CHLORIDE 0.9% 250ML IRRIG IR SCH ×3 (06:56→11:39)
[2017-12-04] MEDS: NYSTATIN SUSPENSION 5 ML UDC PO SCH ×2 (07:10→09:55)
[2017-12-04] MEDS: PIPERACILLIN/TAZO 2.25 GM 50 ML IV SCH ×2 (07:11→17:06)
[2017-12-04 07:23] LABS: ANISOCYTOSIS SLIGHT; EOSINOPHILS % (MANUAL) 5 % (0-7); LYMPHOCYTES % (MANUAL) 11 % (19-48); MONOCYTES % (MANUAL) 9 % (3.4-9.0); MYELOCYTES % (MANUAL) 1 % (0-0); NEUTROPHILS % (MANUAL) 72 % (40-74)
[2017-12-04 07:24] LABS: HYPOCHROMASIA SLIGHT; PLATELET ESTIMATE ADEQUATE; PLATELET MORPHOLOGY COMMENT NORMAL; RBC MORPHOLOGY COMMENT NORMAL
[2017-12-04] MEDS: ALBUTEROL/IPRATROPIUM 3 ML NEB NEB SCH ×3 (07:30→19:15)
--- NOTE | 2017-12-04 09:07 | Progress Note ---
DATE: December 04, 2017 SUBJECTIVE: Patient seen and examined today. Patient appeared comfortable. No worsening event noted. Current hemoglobin 9.3, dropped from 9.8. Platelet counts are normal. PHYSICAL EXAMINATION: GENERAL: Alert, awake, communicative. HEENT: Normocephalic, atraumatic. Sclerae pink. Conjunctivae clear. NECK: Supple. CHEST: Decreased at the bases. CARDIOVASCULAR: Regular rate and rhythm. ABDOMEN: Soft. EXTREMITIES: No edema. LABS AND IMAGING: Reviewed. ASSESSMENT: 1. 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 2. Secondary peritonitis. 3. History of gastric cancer, status post surgery and chemotherapy. 4. Anemia. 5. Pancytopenia. PLAN: Patient is clinically stable. No worsening anemia or pancytopenia noted. Waiting for the LTAC transfer. Following furnace and wash equipment operator. At this point, continue current care. Will follow patient closely. Job#: [id number]
[2017-12-04] MEDS: PANTOPRAZOLE 40 MG 10ML VIAL IV SCH (09:55)
[2017-12-04] MEDS: CALCIUM GLUCONATE 10% INJ 4.65 MEQ in SODIUM CHLORIDE 0.9% 50ML 100 ML IV SCH (09:55)
[2017-12-04] MEDS: ONDANSETRON HCL INJ 2 MG/ML VIAL IV PRN (09:56)
[2017-12-04] MEDS: ENOXAPARIN SOD INJ 40 MG/0.4 ML SYR SC SCH ×2 (10:07→21:13)
[2017-12-04] MEDS: INSULIN DETEMIR 100 UNIT/ML PEN SQ SCH (11:40)
--- NOTE | 2017-12-04 12:38 | Diagnostic Imaging Report ---
PROCEDURE: CHEST SINGLE (PORTABLE) COMPARISON: 12/02/2017, chest CT without contrast 11/28/2017. INDICATIONS: SHORTNESS OF BREATH FINDINGS: Right internal jugular central venous port catheter, left internal jugular central venous catheter are stable in position. Interval advancement of enteric tube. The tip now projects over the proximal gastric body. Interval improvement in patchy multifocal air space opacities relative to 12/02/2017. Trace left pleural effusion is suspected. Stable cardiomediastinal contour. No acute osseous abnormality. CONCLUSION: Interval advancement of enteric tube with stable position of central venous port catheter and left IJ central venous catheter as above. Interval improvement in multifocal airspace opacities relative to 12/02/2017. Dictated by: Richie Prater M.D. on 12/04/2017 at 12:43 Electronically approved by: Richie Prater M.D. on 12/04/2017 at 12:43
--- NOTE | 2017-12-04 13:37 | Progress Note ---
DATE: December 04, 2017 INTERNAL MEDICINE PROGRESS NOTE This is coverage for Dr. Blackman. SUBJECTIVE: Mr. Morgan was seen and examined at bedside. BiPAP 04/04 on standby, 40% FiO2. However, he is not using it as he did the other day. Currently, he is 96% on room air even. Still has a lot of retained airway secretions, but he feels slightly better than before. NG tube in place. Marlow is in place. D5W at 100 mL per hour ongoing. Vital AF feeds already being titrated now at 20 mL per hour. REVIEW OF SYSTEMS: No bleeding. No headache. OBJECTIVE VITAL SIGNS: Afebrile. Vital signs noted per electronic record. GENERAL: No acute distress. Alert and calm. HEENT: Normocephalic, atraumatic. NECK: Supple. Throat midline. LUNGS: Bilateral air entry, moderate rhonchi, a few rales. CARDIOVASCULAR: S1, S2. No murmurs, rubs, or gallops. ABDOMEN: Soft, nontender. EXTREMITIES: No clubbing, no cyanosis. There is trace edema. INTEGUMENT: No rash, no purpura. IMPRESSION 1. Aspiration pneumonia. 2. Harsh, insufficient cough. 3. Postoperative state, status post gastrointestinal surgery, small-bowel perforation. 4. History of gastrointestinal malignancy. 5. Debility/weakness. 6. Dysphagia, resolving. PLAN: Continue close followup. Tube feeds have been resumed via the feeding tube. Will assess if the patient can be titrated back safely to goal. Continue aspiration precautions. BiPAP on standby, but continue oxygen for now. The patient will have continued progress assessment. The patient has a Marlow in place. Will continue to follow I's and O's. Follow up distention closely and ensure appropriate improvement. IV antibiotics for peritonitis. LTAC is the planned disposition. The patient has been cleared by Dr. Lara to go there if other medical disciplines can manage. Job#: [id number]
[2017-12-04] MEDS ORDERED: SODIUM CHLORIDE 0.9% 250ML 250 ML ONE (17:08)
[2017-12-05] MEDS: ALBUTEROL/IPRATROPIUM 3 ML NEB NEB SCH ×4 (01:00→19:45)
[2017-12-05 04:34] VITALS: BP 131/88
[2017-12-05] MEDS: METOPROLOL TARTRATE INJ 1 MG/ML VIAL IV SCH ×3 (05:26→18:49)
[2017-12-05] MEDS: PIPERACILLIN/TAZO 2.25 GM 50 ML IV SCH ×2 (05:26→19:00)
[2017-12-05] MEDS: INSULIN LISPRO 100 UNIT/1 ML 3ML VIAL SQ SCH ×3 (05:26→18:00)
[2017-12-05 07:14] VITALS: BP 124/75
--- NOTE | 2017-12-05 09:00 | Progress Note ---
DATE: December 05, 2017 SUBJECTIVE: Patient seen and examined today. Patient appeared comfortable. No worsening event noted. Patient currently waiting for the placement. PHYSICAL EXAMINATION: GENERAL: Alert, awake. NG tube in place. HEENT: Normocephalic, atraumatic. Sclerae pale. Conjunctivae clear. NECK: Supple. CHEST: Decreased breath sounds on bases. CARDIOVASCULAR: Regular rate and rhythm. ABDOMEN: Soft. EXTREMITIES: No edema. LABS AND IMAGING: Reviewed. ASSESSMENT AND PLAN: Patient with history of gastric cancer, status post surgery and chemotherapy, admitted with intestinal obstruction with small bowel perforation, status post repair. Aspiration pneumonia, anemia, pancytopenia. Patient is currently doing better. Following industrial court magistrate very closely. Hemoglobin, white cell, platelet count improved. At this point, will continue current oncological and hematological care. Patient will need restaging as outpatient. Will monitor patient closely. Job#: [id number]
[2017-12-05] MEDS: CALCIUM GLUCONATE 10% INJ 4.65 MEQ in SODIUM CHLORIDE 0.9% 50ML 100 ML IV SCH (09:55)
[2017-12-05] MEDS: PANTOPRAZOLE 40 MG 10ML VIAL IV SCH (09:55)
[2017-12-05] MEDS: ENOXAPARIN SOD INJ 40 MG/0.4 ML SYR SC SCH ×2 (09:55→21:00)
[2017-12-05] MEDS: INSULIN DETEMIR 100 UNIT/ML PEN SQ SCH (09:59)
[2017-12-05 12:07] VITALS: BP 124/75
--- NOTE | 2017-12-05 15:41 | Diagnostic Imaging Report ---
PROCEDURE:X-RAY ABDOMEN - KUB COMPARISON:KUB 12/02/2017 INDICATIONS:LINE PLACEMENT FINDINGS: NG/OG tube tip and side hole overlie the stomach. There is a non-obstructed bowel-gas pattern. There are no calcifications projected over the renal shadows, expected course of the ureters or bladder. There are no acute osseous abnormalities. CONCLUSION: NG/OG tube tip and side hole overlie the stomach. Dictated by: Abiodun Miller M.D. on 12/05/2017 at 15:47 Electronically approved by: Abiodun Miller M.D. on 12/05/2017 at 15:47
[2017-12-05] MEDS: ACETAMINOPHEN 325 MG TAB PO PRN ×2 (16:12→22:14)
[2017-12-05 16:40] VITALS: BP 134/82
[2017-12-05 18:45] VITALS: BP 136/80
[2017-12-05] MEDS: SODIUM CHLORIDE FLUSH 10 ML SYR INJ PRN (18:50)
[2017-12-05 20:00] VITALS: BP 148/91
[2017-12-05] MEDS: ONDANSETRON HCL INJ 2 MG/ML VIAL IV PRN (22:17)
[2017-12-05] MEDS: HYDROMORPHONE 1MG/1ML INJ IV PRN (22:17)
[2017-12-06] VITALS: BP 129/73
[2017-12-06] MEDS: ALBUTEROL/IPRATROPIUM 3 ML NEB NEB SCH ×4 (01:00→19:30)
--- NOTE | 2017-12-06 03:21 | Progress Note ---
DATE: December 05, 2017 INTERNAL MEDICINE PROGRESS NOTE This is coverage for Dr. Blackman. SUBJECTIVE: Mr. Morgan was seen and examined at bedside. Feeds ongoing now at 40 mL per hour which has increased. 97% oxygen saturation. He is on room air FiO2. Marlow in place with good urine output. Remains n.p.o. by mouth. NG tube in place. He stood up and sat in chair over last day. Chest x-ray with decreasing pneumonitis. REVIEW OF SYSTEMS: No headaches, no bleeding. OBJECTIVE: VITAL SIGNS: Afebrile, vital signs noted per electronic record. GENERAL: In no acute distress, alert and calm. HEENT: Normocephalic, atraumatic. NECK: Supple. Throat midline. LUNGS: Bilateral air entry, decreased rhonchi over the last day, still mild rhonchi. CARDIOVASCULAR: S1, S2. No murmurs, rubs, or gallops. ABDOMEN: Soft, nontender. EXTREMITIES: No clubbing, no cyanosis, there is some edema still. INTEGUMENT: No rash, no purpura. IMPRESSION AND PLAN: 1. Perforated hollow viscus, small bowel. 2. Postoperative state, status post repair end ileostomy. 3. Secondary peritonitis. 4. History of gastric cancer, status post surgery 8 months ago and on recent chemotherapy. 5. Hypertension. 6. Degenerative joint disease. 7. Respiratory failure, improving slowly. 8. Recent neutropenia. 9. Acute kidney injury, resolved. 10. Severe protein-calorie malnutrition. Follow up closely. We will wait coordination with insurance for long-term acute care . Patient not able to go to shelter facility at this point as he is very far from eating orally as well as he has no stable gastrointestinal access. Continue local surgical wound care and followup. Continue to mobilize him and as he is getting stronger, he seems to be mobilizing the airway secretions better. Repeat laboratories in the morning to update them. Job#: [id number]
[2017-12-06 04:00] VITALS: BP 145/83
[2017-12-06 05:12] LABS: BASOPHILS # (AUTO) 0.1 (0.0-0.1); BASOPHILS % 0.9 % (0.0-1.0); EOSINOPHILS # (AUTO) 0.3 (0.0-0.4); HEMATOCRIT 32.1 % (38.2-49.6); HEMOGLOBIN 10.2 g/dL (14.0-18.0); LYMPHOCYTES # (AUTO) 2.6 (1.0-3.2); LYMPHOCYTES % 17.1 % (18.0-39.1); MEAN CORPUSCULAR HEMOGLOBIN 31.2 pg (28-32); MEAN CORPUSCULAR HGB CONC 31.8 g/dL (31-35); MEAN CORPUSCULAR VOLUME 98.2 fL (81-99); MONOCYTES # (AUTO) 1.5 (0.2-0.8); MONOCYTES % 10.2 % (4.4-11.3); NEUTROPHILS # (AUTO) 9.8 (2.1-6.9); PLATELET COUNT 338 x10e3/uL (140-360); RED BLOOD COUNT 3.27 x10e6/uL (4.3-5.7); RED CELL DISTRIBUTION WIDTH 15.2 % (11.7-14.4)
[2017-12-06 05:34] LABS: ALANINE AMINOTRANSFERASE 13 IU/L (0-55); ALBUMIN 1.7 g/dL (3.5-5.0); ALBUMIN/GLOBULIN RATIO 0.4 (0.8-2.0); ALKALINE PHOSPHATASE 112 IU/L (40-150); ANION GAP 12.3 mmol/L (8-16); BLOOD UREA NITROGEN 19 mg/dL (7-26); BUN/CREATININE RATIO 29 (6-25); CALCIUM 8.3 mg/dL (8.4-10.2); CARBON DIOXIDE 26 mmol/L (22-29); CHLORIDE 105 mmol/L (98-107); CREATININE, SERUM 0.66 mg/dL (0.72-1.25); EST GLOMERULAR FILTRATION RATE > 60 ML/MIN (60-); GLUCOSE 88 mg/dL (74-118); MAGNESIUM 1.6 MG/DL (1.3-2.1); POTASSIUM 4.3 mmol/L (3.5-5.1); SODIUM 139 mmol/L (136-145)
[2017-12-06] MEDS: INSULIN LISPRO 100 UNIT/1 ML 3ML VIAL SQ SCH ×4 (06:00→18:00)
[2017-12-06] MEDS: METOPROLOL TARTRATE INJ 1 MG/ML VIAL IV SCH ×4 (06:00→19:20)
[2017-12-06] MEDS: PIPERACILLIN/TAZO 2.25 GM 50 ML IV SCH (06:54)
[2017-12-06] MEDS: HYDROMORPHONE 1MG/1ML INJ IV PRN ×2 (06:57→21:30)
[2017-12-06] MEDS: ONDANSETRON HCL INJ 2 MG/ML VIAL IV PRN ×2 (06:58→21:30)
[2017-12-06 07:28] LABS: ANISOCYTOSIS SLIGHT; EOSINOPHILS % (MANUAL) 2 % (0-7); HYPOCHROMASIA SLIGHT; LYMPHOCYTES % (MANUAL) 8 % (19-48); MONOCYTES % (MANUAL) 11 % (3.4-9.0); MYELOCYTES % (MANUAL) 2 % (0-0); NEUTROPHILS % (MANUAL) 75 % (40-74); NUCLEATED RED BLOOD CELLS 2; PLATELET ESTIMATE ADEQUATE; RBC MORPHOLOGY COMMENT NORMAL
[2017-12-06 07:29] LABS: PLATELET MORPHOLOGY COMMENT FEW LARGE
[2017-12-06] MEDS: INSULIN DETEMIR 100 UNIT/ML PEN SQ SCH (09:00)
[2017-12-06] MEDS: PANTOPRAZOLE 40 MG 10ML VIAL IV SCH (09:01)
[2017-12-06] MEDS: ENOXAPARIN SOD INJ 40 MG/0.4 ML SYR SC SCH ×2 (09:01→21:00)
[2017-12-06] MEDS: CALCIUM GLUCONATE 10% INJ 4.65 MEQ in SODIUM CHLORIDE 0.9% 50ML 100 ML IV SCH (09:01)
--- NOTE | 2017-12-06 09:05 | Progress Note ---
DATE: SUBJECTIVE: The patient appears comfortable, fatigued, lethargic and tired. He also has worsening protein-calorie malnutrition. Hemoglobin is stable at 10. White cell count is elevated at 15. The patient's platelet count is normal. No worsening shortness of breath noted. EXAMINATION GENERAL: Alert, awake, lethargic, tired. HEENT: Normocephalic, atraumatic. Sclerae pink. Conjunctivae clear. NECK: Supple. CHEST: Decreased breath sounds on bases. CARDIOVASCULAR: Regular rate and rhythm. ABDOMEN: Soft. EXTREMITIES: No edema. LABS AND IMAGING: Reviewed. ASSESSMENT AND PLAN 1. The patient with history of gastric cancer, status post gastric surgery and chemotherapy. Recommend restating as outpatient. The patient will benefit with continuation of adjuvant chemotherapy as per his condition. Will follow the patient. 2. History of intestinal obstruction with small bowel perfusion, status post repair. Is still improving. Continue to follow surgeon. Continue remaining care. 3. Anemia. Hemoglobin improving and stable. Continue close observation. 4. Pancytopenia, improved. Do not recommend any pancytopenic medication. Continue current care. 1. Aspiration pneumonia. Following nurse extern. Continue remaining care. Will follow the patient closely. Job#: [id number] KACIE
[2017-12-06] MEDS: ACETAMINOPHEN 325 MG TAB PO PRN (12:13)
[2017-12-06 12:46] VITALS: BP 138/86
[2017-12-06 20:00] VITALS: BP 149/98
[2017-12-06 20:34] VITALS: BP 149/98
[2017-12-07] VITALS: BP 102/68
--- NOTE | 2017-12-07 00:15 | Progress Note ---
DATE: December 06, 2017 INTERNAL MEDICINE PROGRESS NOTE This is a Dr. Blackman coverage. SUBJECTIVE: Mr. Tonny Morgan was seen and examined at bedside on December 06, 2017. Patient was noted with NG tube still in place. He has a wet-sounding voice still. Intermittent cough. Still n.p.o. by mouth. Room air FiO2. 98% oxygen saturation. I discussed with project administrator from [employer] regarding his case. REVIEW OF SYSTEMS: No bleeding, no headaches. OBJECTIVE VITAL SIGNS: Afebrile, vital signs noted per electronic record. GENERAL: In no acute distress, alert and calm. HEENT: Normocephalic, atraumatic. NECK: Supple. Throat midline. LUNGS: Bilateral air entry, moderate rhonchi, few rales. CARDIOVASCULAR: S1, S2. No murmurs, rubs or gallops. ABDOMEN: Soft, nontender. EXTREMITIES: No clubbing, no cyanosis. There is trace edema. INTEGUMENT: No rash, no purpura. white count. IMPRESSIONS AND PLAN 1. Small bowel perforation. 2. Postoperative state, status post repair. 3. History of liver cancer. 4. Weakness. 5. Acute respiratory failure, extubated. 6. Dysphagia, significant. 7. Persistent leukocytosis. 8. Secondary peritonitis. Continue IV antibiotics. Follow up closely. Patient will be going to long-term acute care hospital tomorrow as he is too sick for other lower level disposition. Continue aggressive physical therapy preceding his electromagnetic stimulation therapy today. Continue glucose control. Will follow along closely. Likely receiving doctor is Dr. Cosmo Phillips as a long-term acute [facility] hospital facility. Job#: [id number] CQ
[2017-12-07] MEDS: ALBUTEROL/IPRATROPIUM 3 ML NEB NEB SCH ×2 (00:30→07:45)
[2017-12-07 04:00] VITALS: BP 101/2
[2017-12-07] MEDS: METOPROLOL TARTRATE INJ 1 MG/ML VIAL IV SCH ×3 (05:54→12:00)
[2017-12-07] MEDS: INSULIN LISPRO 100 UNIT/1 ML 3ML VIAL SQ SCH ×3 (05:54→12:00)
[2017-12-07] MEDS: ACETAMINOPHEN 325 MG TAB PO PRN ×2 (06:33→12:30)
[2017-12-07 08:00] VITALS: BP 124/86
[2017-12-07] MEDS: CALCIUM GLUCONATE 10% INJ 4.65 MEQ in SODIUM CHLORIDE 0.9% 50ML 100 ML IV SCH (08:49)
[2017-12-07 09:00] VITALS: BP 124/86
--- NOTE | 2017-12-07 09:03 | Progress Note ---
DATE: December 07, 2017 SUBJECTIVE: Patient is seen and examined today. Patient appeared comfortable. He is still requiring NG tube feeding. Failed swallowing evaluation. PHYSICAL EXAMINATION: GENERAL: Alert, awake, communicative. HEENT: Normocephalic, atraumatic. Sclerae pale. Conjunctivae clear. NECK: Supple. CHEST: Clear to auscultation with decreased breath sounds on bases. ABDOMEN: Soft, mildly tender. EXTREMITIES: No edema. LABS AND IMAGING: Reviewed. ASSESSMENT AND PLAN: Patient with history of gastric cancer, status post surgery, chemotherapy. History of intestinal perforation, status post repair. History of anemia and pancytopenia. Patient recent blood count showed stable result. Clinical condition is improving. Patient currently for discharge planning. At this point, will continue current care. Will monitor patient very closely. Restaging for gastric cancer as outpatient. Job#: [id number]
[2017-12-07] MEDS: ENOXAPARIN SOD INJ 40 MG/0.4 ML SYR SC SCH (10:14)
[2017-12-07] MEDS: PANTOPRAZOLE 40 MG 10ML VIAL IV SCH (10:14)
[2017-12-07] MEDS: INSULIN DETEMIR 100 UNIT/ML PEN SQ SCH (10:19)
[2017-12-07 11:10] VITALS: BP 140/97
[2017-12-07 12:24] VITALS: BP 129/88
--- NOTE | 2017-12-08 03:48 | Discharge Summary ---
DATE OF ENCOUNTER: December 07, 2017 This is a coverage for Dr. Deacon Blackman, the hospital doctor. PRIMARY HOSPITAL SYSTEM: [facility]. HOSPITAL COURSE: A 72-year-old male with history of stomach cancer, who underwent subtotal gastrectomy about 8 months previous, was being treated with chemotherapy. He was having abdominal pain for 4 days with nausea, vomiting, and imaging revealed perforated hollow viscus. Patient, subsequently, was also seen to have granulocytopenia as well. He was in septic shock and acute peritonitis due to mostly sensitive organisms. He went for operative repair. On November 14, 2017, patient had exploratory laparotomy, lysis of adhesions with release of small-bowel obstruction, closure of small bowel perforation and some excision of abdominal wall mass. There was fat necrosis on final pathology with giant cell reaction. Patient slowly improved and was extubated. Patient allowed to weakness that was left over. He had leukocytosis that was somewhat persistent. Originally, his white count was 1.8 coming in, but later normalized and then, at time of discharge, it was 15,000. Albumin was 1.7 by the time he was being discharged. Patient on cultures grew a Klebsiella pneumonia and Enterobacter cloacae that was multi-sensitive as I stated earlier. Patient remained weak with NG tube in place receiving tube feeds with the severe dysphagia. It was recommended for a program of dysphagia care, although a lesser-coveted alternative would be to get a PEG tube. We will allow to go to long-term acute care facility for further care thereafter. MEDICINES: Please see discharge medicine record for details. ACTIVITY: Assist activity only with assist device. DISPOSITION: Dr. Wilburn at [facility] in the [facility] and the [facility] team. Greater than 30 minutes direct care on this date including coordination. Job#: [id number]
== END 2017-12-07 13:41 | DRG 853 ==
LOC: ER 10:44 → ERHOLD 15:31 → IMCU 17:29 → ICU 17:30 → MED/SURG 11-27 19:14 → IMCU 11-27 19:14
PROVIDERS: ADMIT Internal Medicine; ATTEND Internal Medicine
PROC: 0DQ80ZZ Repair Small Intestine, Open Approach (ICD-10-PCS; 2017-11-14)
PROC: 0DN80ZZ Release Small Intestine, Open Approach (ICD-10-PCS; 2017-11-14)
PROC: 0BH17EZ Insertion of Endotracheal Airway into Trachea, Via Natural or Artificial Opening (ICD-10-PCS; 2017-11-14)
PROC: 0WBF0ZX Excision of Abdominal Wall, Open Approach, Diagnostic (ICD-10-PCS; 2017-11-14)
PROC: 02HV33Z Insertion of Infusion Device into Superior Vena Cava, Percutaneous Approach (ICD-10-PCS; 2017-11-14)
PROC: 5A1935Z Respiratory Ventilation, Less than 24 Consecutive Hours (ICD-10-PCS; principal; 2017-11-14 18:21)
PROC: 30243R1 Transfusion of Nonautologous Platelets into Central Vein, Percutaneous Approach (ICD-10-PCS; 2017-11-17)
PROC: 02HV33Z Insertion of Infusion Device into Superior Vena Cava, Percutaneous Approach (ICD-10-PCS; 2017-11-28)
PROC: 30243N1 Transfusion of Nonautologous Red Blood Cells into Central Vein, Percutaneous Approach (ICD-10-PCS; 2017-11-29)
DX: A41.9 Sepsis, unspecified organism (principal); J96.00 Acute respiratory failure, unspecified whether with hypoxia or hypercapnia; R65.21 Severe sepsis with septic shock; K63.1 Perforation of intestine (nontraumatic); K65.9 Peritonitis, unspecified; D61.810 Antineoplastic chemotherapy induced pancytopenia; E43 Unspecified severe protein-calorie malnutrition; J69.0 Pneumonitis due to inhalation of food and vomit; N17.9 Acute kidney failure, unspecified; K56.50 Intestinal adhesions [bands], unspecified as to partial versus complete obstruction; C16.9 Malignant neoplasm of stomach, unspecified; R19.09 Other intra-abdominal and pelvic swelling, mass and lump; I10 Essential (primary) hypertension; Z87.891 Personal history of nicotine dependence; T45.1X5A Adverse effect of antineoplastic and immunosuppressive drugs, initial encounter; M19.90 Unspecified osteoarthritis, unspecified site; E86.0 Dehydration; R33.9 Retention of urine, unspecified; B96.1 Klebsiella pneumoniae [K. pneumoniae] as the cause of diseases classified elsewhere; B96.89 Other specified bacterial agents as the cause of diseases classified elsewhere; Z16.24 Resistance to multiple antibiotics; Z68.25 Body mass index [BMI] 25.0-25.9, adult; R13.10 Dysphagia, unspecified; R93.8 Abnormal findings on diagnostic imaging of other specified body structures
CPT/HCPCS: 36415; 36430; 36580; 36600; 51700; 70450; 70551; 71045; 71250; 74018; 74176; 74230; 74470; 76937; 80048; 80053; 80150; 81001; 82150; 82330; 82550; 82553; 82805; 82948; 83605; 83690; 83735; 84100; 84484; 85007; 85025; 85027; 85610; 85730; 86850; 86900; 86920; 87040; 87070; 87071; 87075; 87086; 87186; 87205; 88304; 93005; 93306; 94002; 94003; 94640; 94660; 96367; 96372; 97139; 99285; C1751; J0610; J0692; J1170; J1442; J1450; J1642; J1650; J1940; J1956; J2001; J2248; J2250; J2270; J2405; J2543; J3370; J3475; J3480; J7030; J7050; J7070; J7120; P9016; P9034; P9047

== ENCOUNTER 2023-09-12 09:56 | Emergency (ER) | payer MEDICARE ==
[~2023-09-12] VITALS: Ht 177.8 cm; Wt 65.3 kg
[~2023-09-12 09:56] MED LIST changes: +LISINOPRIL10 MG PO; +ZOFRAN ODT4 MG
[2023-09-12 11:03] LABS: BASOPHILS # (AUTO) 0.1 (0.0-0.1); BASOPHILS % 0.7 % (0.0-1.0); EOSINOPHILS # (AUTO) 0.1 (0.0-0.4); EOSINOPHILS % 0.8 % (0.0-6.0); HEMATOCRIT 45.4 % (38.2-49.6); MEAN CORPUSCULAR HEMOGLOBIN 30.7 pg (28-32); MEAN CORPUSCULAR VOLUME 92.8 fL (81-99); MONOCYTES # (AUTO) 0.9 (0.2-0.8); MONOCYTES % 10.2 % (4.4-11.3); NEUTROPHILS # (AUTO) 6.6 (2.1-6.9); PLATELET COUNT 239 x10e3/uL (140-360); RED BLOOD COUNT 4.89 x10e6/uL (4.3-5.7); RED CELL DISTRIBUTION WIDTH 14.9 % (11.7-14.4); WHITE BLOOD COUNT 8.64 x10e3/uL (4.8-10.8)
[2023-09-12 11:53] LABS: ALBUMIN 3.2 g/dL (3.5-5.0); ALBUMIN/GLOBULIN RATIO 0.9 (0.8-2.0); ANION GAP 18.9 mmol/L (8-16); BILIRUBIN,TOTAL 0.8 mg/dL (0.2-1.2); CALCIUM 8.5 mg/dL (8.4-10.2); CREATININE, SERUM 0.86 mg/dL (0.72-1.25); POTASSIUM 4.9 mmol/L (3.5-5.1); TOTAL PROTEIN 6.8 g/dL (6.5-8.1)
[2023-09-12] MEDS ORDERED: IOPAMIDOL 370 MG/ML 100 ML INFUS..BTL INJ ONE ×2 (12:18→13:05)
[2023-09-12] MEDS: SODIUM CHLORIDE 0.9% 1000ML 1,000 ML IV ONE (12:20)
[2023-09-12] MEDS: KETOROLAC TROMETHAMINE 30 MG/ML VIAL IV STA (12:21)
[2023-09-12 17:48] VITALS: BP 114/84; PULSE 74; RESP 18; TEMP 98.3; O2SAT 100
== END 2023-09-12 16:20 | disposition home or self-care (01) ==
LOC: ER 10:18
DX: R19.7 Diarrhea, unspecified (principal); R53.81 Other malaise; I10 Essential (primary) hypertension; G20.A1 Parkinson's disease without dyskinesia, without mention of fluctuations; R94.31 Abnormal electrocardiogram [ECG] [EKG]; Z85.028 Personal history of other malignant neoplasm of stomach; Z79.60 Long term (current) use of unspecified immunomodulators and immunosuppressants
CPT/HCPCS: 36415; 74177; 80053; 83690; 85025; 87324; 87449; 93005; 99284; J1885; J7030; Q9967